=== PATIENT | female | born 1955 | race Caucasian/White ===

== ENCOUNTER 2017-02-12 11:02 | Inpatient (IN) | payer SELFPAY ==
[~2017-02-12] VITALS: Ht 157.5 cm; Wt 69.9 kg
[~2017-02-12 11:02] MED LIST: FURO40TA4 PO; IPRA3AMP NEB; POTA20TA4 PO
--- NOTE | 2017-02-12 11:32 | PHYS DOC ---
Past Medical History Past Medical History: Anxiety, CHF, COPD Past Surgical History: Hip Replacement, Tubal ligation Alcohol Use: Sober Drug Use: None Adult General Chief Complaint Chief Complaint: OTHER COMPLAINTS HPI HPI Patient is a 61 year old female who presents with shortness of breath over the last 3 days. She was seen today in her primary care office without oxygen on admit was 63%. 2 L increased to 82% and is back above 88% now with 5 L. She states she is on Lasix and been compliant with her medications. She denies any fevers chills nausea or vomiting. She does have sinus congestion since she's had an productive cough over the last several days of clear discharge. She also complains of dyspnea on exertion. She states she oxygen tanks at home but does not know how to use it. Her records indicated that she was hospitalized last year and then did not follow up with cardiology or pulmonary as directed. Review of Systems Review of Systems Constitutional: Denies fever or chills [] Eyes: Denies change in visual acuity, redness, or eye pain [] HENT: Denies nasal congestion or sore throat [] Respiratory: Positive for shortness of breath and dyspnea on exertion, Cardiovascular: No additional information not addressed in HPI [] GI: Denies abdominal pain, nausea, vomiting, bloody stools or diarrhea [] : Denies dysuria or hematuria [] Musculoskeletal: Denies back pain or joint pain [] Integument: Denies rash or skin lesions [] Neurologic: Denies headache, focal weakness or sensory changes [] Endocrine: Denies polyuria or polydipsia [] Current Medications Current Medications Current Medications Medications (Trade) Dose Ordered Sig/Dia Start Time Stop Time Status Last Admin Dose Admin Albuterol Sulfate (Ventolin Neb Soln) 2.5 mg PRN Q2HR PRN 02/12/17 14:15 Albuterol/ Ipratropium (Duoneb) 3 ml RTQID 02/12/17 16:00 Azithromycin (Zithromax 500mg Ivpb For Omni) 250 ml @ 250 mls/hr 1X ONCE 02/12/17 13:45 02/12/17 14:44 Enoxaparin Sodium (Lovenox 40mg Syringe) 40 mg Q24H 02/12/17 15:00 Famotidine (Pepcid) 20 mg DAILY 02/12/17 15:00 Furosemide (Lasix) 40 mg DAILY 02/12/17 15:00 Guaifenesin 600 mg 600 mg BID 02/12/17 21:00 Hydralazine HCl (Apresoline) 10 mg PRN Q4HRS PRN 02/12/17 14:30 Levofloxacin/ Dextrose (LEVAQUIN 500mg PREMIX) 100 ml @ 100 mls/hr 1X ONCE 02/12/17 14:30 02/12/17 15:29 Methylprednisolone Sodium Succinate (Solu-Medrol 40mg Vial) 40 mg BID 02/12/17 21:00 Methylprednisolone Sodium Succinate 125 mg 125 mg 1X ONCE 02/12/17 13:45 02/12/17 13:46 DC Potassium Chloride (Klor-Con) 20 meq DAILY 02/12/17 15:00 Allergies Allergies Allergies Coded Allergies Type Severity Reaction Last Updated Verified No Known Drug Allergies 05/17/16 No Physical Exam Physical Exam Constitutional: Well developed, well nourished, no acute distress, non-toxic appearance. [] HENT: Normocephalic, atraumatic, bilateral external ears normal, oropharynx moist, no oral exudates, nose normal. [] Eyes: PERRLA, EOMI, conjunctiva normal, no discharge. [] Neck: Normal range of motion, no tenderness, supple, no stridor. [] Cardiovascular:Heart rate regular rhythm, no murmur [] Lungs & Thorax: Decreased breath sounds bilaterally, no wheezing appreciated. Abdomen: Bowel sounds normal, soft, no tenderness, no masses, no pulsatile masses. [] Skin: Warm, dry, no erythema, no rash. [] Back: No tenderness, no CVA tenderness. [] Extremities: No tenderness, no cyanosis, no clubbing, ROM intact, no edema. [] Neurologic: Alert and oriented X 3, normal motor function, normal sensory function, no focal deficits noted. [] Psychologic: Affect normal, judgement normal, mood normal. [] Current Patient Data Vital Signs Vital Signs Date Time Temp Pulse Resp B/P Pulse Ox O2 Delivery O2 Flow Rate FiO2 02/12/17 14:22 93 BiPAP/CPAP 02/12/17 13:43 5.0 02/12/17 11:20 97.7 117 24 176/105 97.7 Lab Values Laboratory Tests Test 02/12/17 12:25 02/12/17 12:40 02/12/17 13:45 White Blood Count 6.9x10^3/uL (4.0-11.0) Red Blood Count 4.10x10^6/uL (3.50-5.40) Hemoglobin 13.4g/dL (12.0-15.5) Hematocrit 39.9% (36.0-47.0) Mean Corpuscular Volume 97fL (79-100) Mean Corpuscular Hemoglobin 33pg (25-35) Mean Corpuscular Hemoglobin Concent 34g/dL (31-37) Red Cell Distribution Width 13.1% (11.5-14.5) Platelet Count 168x10^3/uL (140-400) Neutrophils (%) (Auto) 78% (31-73) H Lymphocytes (%) (Auto) 10% (24-48) L Monocytes (%) (Auto) 12% (0-9) H Eosinophils (%) (Auto) 0% (0-3) Basophils (%) (Auto) 0% (0-3) Neutrophils # (Auto) 5.4x10^3uL (1.8-7.7) Lymphocytes # (Auto) 0.7x10^3/uL (1.0-4.8) L Monocytes # (Auto) 0.8x10^3/uL (0.0-1.1) Eosinophils # (Auto) 0.0x10^3/uL (0.0-0.7) Basophils # (Auto) 0.0x10^3/uL (0.0-0.2) Prothrombin Time 13.2SEC (11.7-14.0) Prothrombin Time INR 1.1 (0.8-1.1) Sodium Level 140mmol/L (136-145) Potassium Level 4.0mmol/L (3.5-5.1) Chloride Level 99mmol/L (98-107) Carbon Dioxide Level 40mmol/L (21-32) H Anion Gap 1 (6-14) L Blood Urea Nitrogen 19mg/dL (7-20) Creatinine 0.9mg/dL (0.6-1.0) Estimated GFR (Cockcroft-Gault) 63.2 Glucose Level 113mg/dL (70-99) H Calcium Level 9.8mg/dL (8.5-10.1) Magnesium Level 2.2mg/dL (1.8-2.4) Total Bilirubin 0.7mg/dL (0.2-1.0) Direct Bilirubin 0.2mg/dL (0.0-0.2) Aspartate Amino Transferase (AST) 14U/L (15-37) L Alanine Aminotransferase (ALT) 15U/L (14-59) Alkaline Phosphatase 55U/L (46-116) Creatine Kinase 33U/L (26-192) Creatine Kinase MB (Mass) 1.1ng/mL (0.0-3.6) Creatine Kinase MB Relative Index % (0-4) Troponin I Quantitative < 0.017ng/mL (0.000-0.055) XI-[place]ox-A-Type Natriuretic Peptide 211pg/mL (0-124) H Total Protein 7.8g/dL (6.4-8.2) Albumin 3.5g/dL (3.4-5.0) Lipase 100U/L (73-393) Thyroid Stimulating Hormone (TSH) 0.458uIU/mL (0.358-3.74) Urine Collection Type Void Urine Color [place] Urine Clarity Cloudy Urine pH 5.5 Urine Specific Blue 1.025 Urine Protein 100mg/dL (NEG-TRACE) Urine Glucose (UA) Negativemg/dL (NEG) Urine Ketones (Stick) Tracemg/dL (NEG) Urine Blood Small (NEG) Urine Nitrite Negative (NEG) Urine Bilirubin Moderate (NEG) Urine Urobilinogen Dipstick 1.0mg/dL (0.2 mg/dL) Urine Leukocyte Esterase Large (NEG) Urine RBC Occ/HPF (0-2) Urine WBC 5-10/HPF (0-4) Urine Squamous Epithelial Cells Few/LPF Urine Bacteria Moderate/HPF (0-FEW) Urine Hyaline Casts Moderate/HPF Urine Mucus Slight/LPF O2 Saturation 94% (92-99) Arterial Blood pH 7.18 (7.35-7.45) *L Arterial Blood pCO2 at Patient Temp 126mmHg (35-46) *H Arterial Blood pO2 at Patient Temp 82mmHg (65-108) Arterial Blood HCO3 46mmol/L (21-28) H Arterial Blood Base Excess 12mmol/L (-3-3) H FiO2 40.0 Laboratory Tests 02/12/17 12:25 Laboratory Tests 02/12/17 12:25 EKG EKG Shows sinus rhythm with a rate of [address] elevations, T-wave inversion noted in leads, afebrile, right axis deviation noted, QTC 435 ms, as interpreted by me. Radiology/Procedures Radiology/Procedures [facility] [address] [place] [address] IMAGING REPORT Signed PATIENT: SHAUN BROWN ACCOUNT: [id number] : 1955 LOCATION: ER AGE: 61 SEX: F EXAM STATUS: REG ER ORD. PHYSICIAN: MERYL HUYNH MD REASON: soa PROCEDURE: PORTABLE CHEST 1V Portable chest, 02/12/2017: History: Cough, fever, shortness of breath Comparison is made to a study from 05/17/2016. The heart is mildly enlarged. There is calcific plaquing of the aorta. The pulmonary vascularity is at the upper limits of normal. No pulmonary consolidation is seen. There is no evidence of pleural fluid. IMPRESSION: Cardiomegaly with borderline vascular congestion. DICTATED and SIGNED BY: REGINA HUGGINS MD DATE: 02/12/17 1201 CC: MERYL HUYNH MD; UNKNOWN PCP NAME ~ Impressions: Shortness of breath Congestive heart failure Acute exacerbation of COPD Acute on chronic respiratory failure Course & Med Decision Making Course & Med Decision Making Pertinent Labs and Imaging studies reviewed. (See chart for details) EKG, labs, chest x-ray are consistent with a COPD exacerbation. Patient is being admitted to Dr. Cheng stable condition this time. We started Solu-Medrol, DuoNeb and azithromycin. She does have a UTI and labs Have a UTI based on labs, but not complaining of dysuria. ABG was completed after talking with primary care physician that shows respiratory acidosis. The patient is being started on BiPAP at this time. PH is 7.12, PCO2 125, PO2 81, bicarbonate 46 I did page back primary to inform him of this. Dragon Disclaimer Dragon Disclaimer This electronic medical record was generated, in whole or in part, using a voice recognition dictation system. Departure Departure Impression: Primary Impression: COPD (chronic obstructive pulmonary disease) Disposition: 09 ADMITTED INPATIENT Admitting Physician: Lino Cheng Condition: STABLE Referrals: TANIA HORNE (PCP) MERYL HUYNH MD Feb 12, 2017 11:32
--- NOTE | 2017-02-12 12:05 | RAD ---
Portable chest, 02/12/2017: History: Cough, fever, shortness of breath Comparison is made to a study from 05/17/2016. The heart is mildly enlarged. There is calcific plaquing of the aorta. The pulmonary vascularity is at the upper limits of normal. No pulmonary consolidation is seen. There is no evidence of pleural fluid. IMPRESSION: Cardiomegaly with borderline vascular congestion.
[2017-02-12 12:43] LABS: BASO % 0 % (0-3); EOS % 0 % (0-3); HEMATOCRIT 39.9 % (36.0-47.0); HEMOGLOBIN 13.4 g/dL (12.0-15.5); LYMPH # 0.7 x10^3/uL (1.0-4.8); LYMPH % 10 % (24-48); MEAN CORPUSCULAR HEMOGLOBIN 33 pg (25-35); MEAN CORPUSCULAR HGB CONC 34 g/dL (31-37); MEAN CORPUSCULAR VOLUME 97 fL (79-100); MONO % 12 % (0-9); NEUT % 78 % (31-73); PLATELET COUNT 168 x10^3/uL (140-400); RED CELL DISTRIBUTION WIDTH 13.1 % (11.5-14.5); WHITE BLOOD COUNT 6.9 x10^3/uL (4.0-11.0)
[2017-02-12 12:53] LABS: INR 1.1 (0.8-1.1); PROTHROMBIN TIME PATIENT 13.2 SEC (11.7-14.0)
[2017-02-12 12:54] LABS: BILIRUBIN,URINE MODERATE (NEG); GLUCOSE,URINE NEGATIVE (NEG); NITRITE,URINE NEGATIVE (NEG); PH,URINE 5.5; PROTEIN,URINE 100 mg/dL (NEG-TRACE)
[2017-02-12 13:05] LABS: CALCIUM 9.8 mg/dL (8.5-10.1); CREATININE 0.9 mg/dL (0.6-1.0); GFR 63.2
[2017-02-12 13:10] LABS: ALBUMIN 3.5 g/dL (3.4-5.0); DIRECT BILIRUBIN 0.2 mg/dL (0.0-0.2); MAGNESIUM 2.2 mg/dL (1.8-2.4); TOTAL BILIRUBIN 0.7 mg/dL (0.2-1.0); TOTAL PROTEIN 7.8 g/dL (6.4-8.2)
[2017-02-12 13:13] LABS: BACTERIA,URINE MODERATE /HPF (0-FEW); RBC,URINE OCC /HPF (0-2); SQUAMOUS EPITHELIAL CELL,UR FEW /LPF
[2017-02-12] MEDS ORDERED: IPRATRPIUM/ALBUTEROL 0.5/2.5MG 3 ML NEBU. NEB ONE (13:15)
[2017-02-12 13:25] LABS: CKMB MASS 1.1 ng/mL (0.0-3.6); CREATINE KINASE 33 U/L (26-192)
[2017-02-12] MEDS ORDERED: methylPREDNISolone SOD SUCC PF 125 MG/2 ML VIAL. IV ONE (13:45)
[2017-02-12] MEDS ORDERED: AZITHRMYCN 500MG IVPB FOR OMNI 250 ML IV ONE (13:45)
[2017-02-12 14:00] LABS: HCO3 ABG 46 mmol/L (21-28); PO2 ABG 82 mmHg (65-108); SAT O2 ABG 94 % (92-99)
[2017-02-12 14:03] LABS: PH ABG 7.18 (7.35-7.45)
--- NOTE | 2017-02-12 14:03 | PDOC1 ---
History and Physical Date of Admission Date of Admission 02/12/17 Identification/Chief Complaint Chief Complaint sob Problems: Source Source: Chart review, Patient History of Present Illness History of Present Illness HPI HPI Patient is a 61 year old female who presents with shortness of breath over the last 3 days. pt is 1PPD, was here last year for resp failure with COPD. She is likely uncompliant with PCP altho she said she is compliant with her lasix to ERP, on home o2 2l 16/06, use nebs 3-4 times a day. poor historian. Her denies fever, chills to ERP, but admited to me, however, when i asked her for details ,she could not answer. + cough, with yellowish sputum. She seems give different history to different doc, she told ERP she has problem using o2 at home, but denies to me. no N/V, diarrhea, constipation. admites mild dysuria and frequency. sat drops to 60s% in ER. Past Medical History Cardiovascular: CHF Pulmonary: COPD, Other CENTRAL NERVOUS SYSTEM: Other GI: No pertinent hx Heme/Onc: No pertinent hx Hepatobiliary: No pertinent hx Rheumatologic: No pertinent hx Infectious disease: No pertinent hx Renal/: No pertinent hx Endocrine: No pertinent hx Past Surgical History Past Surgical History: Total hip replacement Family History Family History: Diabetes, Family History Unknown Social History Smoke: 1 pack per day ALCOHOL: occassional Drugs: None Current Problem List Problem List Problems Medical Problems: (1) COPD (chronic obstructive pulmonary disease) Status: Acute Current Medications Current Medications Current Medications Medications (Trade) Dose Ordered Sig/Dia Start Time Stop Time Status Last Admin Dose Admin Albuterol/ Ipratropium (Duoneb) 3 ml 1X ONCE 02/12/17 13:15 02/12/17 13:16 DC 02/12/17 13:43 3 ML Azithromycin (Zithromax 500mg Ivpb For Omni) 250 ml @ 250 mls/hr 1X ONCE 02/12/17 13:45 02/12/17 14:44 Methylprednisolone Sodium Succinate 125 mg 125 mg 1X ONCE 02/12/17 13:45 02/12/17 13:46 DC Allergies Allergies Allergies Coded Allergies Type Severity Reaction Last Updated Verified No Known Drug Allergies 05/17/16 No ROS Review of System CONSTITUTIONAL: No fever or chills EYES: No recent changes SKIN: No rash or itching CARDIOVASCULAR: No chest pain, syncope, palpitations, or edema RESPIRATORY: No SOB or cough GASTROINTESTINAL: No nausea, vomiting or abdominal pain NEUROLOGICAL: No headaches or weakness ENDOCRINE: No cold or heat intolerance GENITOURINARY: No urgency or frequency of urination MUSCULOSKELETAL: No back pain or joint pain LYMPHATICS: No enlarged lymph nodes PSYCHIATRIC: No anxiety or depression Physical Exam Physical Exam GEN.: No apparent distress. Alert and oriented. HEENT: Head is normocephalic, atraumatic NECK: Supple. LUNGS: bl coarse bs with mild crackles HEART: RRR, S1, S2 present. Peripheral pulses intact ABDOMEN: Soft, nontender. Positive bowel sounds. EXTREMITIES: Without any cyanosis. NEUROLOGIC: Normal speech, normal tone PSYCHIATRIC: Normal affect, normal mood. SKIN: No ulcerations Vitals Vitals Vital Signs Date Time Temp Pulse Resp B/P Pulse Ox O2 Delivery O2 Flow Rate FiO2 02/12/17 13:43 96 Nasal Cannula 5.0 02/12/17 11:20 97.7 117 24 176/105 97.7 Labs Labs Laboratory Tests Test 02/12/17 12:25 02/12/17 12:40 White Blood Count 6.9x10^3/uL (4.0-11.0) Red Blood Count 4.10x10^6/uL (3.50-5.40) Hemoglobin 13.4g/dL (12.0-15.5) Hematocrit 39.9% (36.0-47.0) Mean Corpuscular Volume 97fL (79-100) Mean Corpuscular Hemoglobin 33pg (25-35) Mean Corpuscular Hemoglobin Concent 34g/dL (31-37) Red Cell Distribution Width 13.1% (11.5-14.5) Platelet Count 168x10^3/uL (140-400) Neutrophils (%) (Auto) 78% (31-73) Lymphocytes (%) (Auto) 10% (24-48) Monocytes (%) (Auto) 12% (0-9) Eosinophils (%) (Auto) 0% (0-3) Basophils (%) (Auto) 0% (0-3) Neutrophils # (Auto) 5.4x10^3uL (1.8-7.7) Lymphocytes # (Auto) 0.7x10^3/uL (1.0-4.8) Monocytes # (Auto) 0.8x10^3/uL (0.0-1.1) Eosinophils # (Auto) 0.0x10^3/uL (0.0-0.7) Basophils # (Auto) 0.0x10^3/uL (0.0-0.2) Prothrombin Time 13.2SEC (11.7-14.0) Prothromb Time International Ratio 1.1 (0.8-1.1) Sodium Level 140mmol/L (136-145) Potassium Level 4.0mmol/L (3.5-5.1) Chloride Level 99mmol/L (98-107) Carbon Dioxide Level 40mmol/L (21-32) Anion Gap 1 (6-14) Blood Urea Nitrogen 19mg/dL (7-20) Creatinine 0.9mg/dL (0.6-1.0) Estimated GFR (Cockcroft-Gault) 63.2 Glucose Level 113mg/dL (70-99) Calcium Level 9.8mg/dL (8.5-10.1) Magnesium Level 2.2mg/dL (1.8-2.4) Total Bilirubin 0.7mg/dL (0.2-1.0) Direct Bilirubin 0.2mg/dL (0.0-0.2) Aspartate Amino Transf (AST/SGOT) 14U/L (15-37) Alanine Aminotransferase (ALT/SGPT) 15U/L (14-59) Alkaline Phosphatase 55U/L (46-116) Creatine Kinase 33U/L (26-192) Creatine Kinase MB (Mass) 1.1ng/mL (0.0-3.6) Creatine Kinase MB Relative Index % (0-4) Troponin I Quantitative < 0.017ng/mL (0.000-0.055) SC-Oqe-A-Type Natriuretic Peptide 211pg/mL (0-124) Total Protein 7.8g/dL (6.4-8.2) Albumin 3.5g/dL (3.4-5.0) Lipase 100U/L (73-393) Thyroid Stimulating Hormone (TSH) 0.458uIU/mL (0.358-3.74) Urine Collection Type Void Urine Color [place] Urine Clarity Cloudy Urine pH 5.5 Urine Specific [place] 1.025 Urine Protein 100mg/dL (NEG-TRACE) Urine Glucose (UA) Negativemg/dL (NEG) Urine Ketones (Stick) Tracemg/dL (NEG) Urine Blood Small (NEG) Urine Nitrite Negative (NEG) Urine Bilirubin Moderate (NEG) Urine Urobilinogen Dipstick 1.0mg/dL (0.2 mg/dL) Urine Leukocyte Esterase Large (NEG) Urine RBC Occ/HPF (0-2) Urine WBC 5-10/HPF (0-4) Urine Squamous Epithelial Cells Few/LPF Urine Bacteria Moderate/HPF (0-FEW) Urine Hyaline Casts Moderate/HPF Urine Mucus Slight/LPF Laboratory Tests Test 02/12/17 12:25 02/12/17 12:40 White Blood Count 6.9x10^3/uL (4.0-11.0) Red Blood Count 4.10x10^6/uL (3.50-5.40) Hemoglobin 13.4g/dL (12.0-15.5) Hematocrit 39.9% (36.0-47.0) Mean Corpuscular Volume 97fL (79-100) Mean Corpuscular Hemoglobin 33pg (25-35) Mean Corpuscular Hemoglobin Concent 34g/dL (31-37) Red Cell Distribution Width 13.1% (11.5-14.5) Platelet Count 168x10^3/uL (140-400) Neutrophils (%) (Auto) 78% (31-73) Lymphocytes (%) (Auto) 10% (24-48) Monocytes (%) (Auto) 12% (0-9) Eosinophils (%) (Auto) 0% (0-3) Basophils (%) (Auto) 0% (0-3) Neutrophils # (Auto) 5.4x10^3uL (1.8-7.7) Lymphocytes # (Auto) 0.7x10^3/uL (1.0-4.8) Monocytes # (Auto) 0.8x10^3/uL (0.0-1.1) Eosinophils # (Auto) 0.0x10^3/uL (0.0-0.7) Basophils # (Auto) 0.0x10^3/uL (0.0-0.2) Prothrombin Time 13.2SEC (11.7-14.0) Prothromb Time International Ratio 1.1 (0.8-1.1) Sodium Level 140mmol/L (136-145) Potassium Level 4.0mmol/L (3.5-5.1) Chloride Level 99mmol/L (98-107) Carbon Dioxide Level 40mmol/L (21-32) Anion Gap 1 (6-14) Blood Urea Nitrogen 19mg/dL (7-20) Creatinine 0.9mg/dL (0.6-1.0) Estimated GFR (Cockcroft-Gault) 63.2 Glucose Level 113mg/dL (70-99) Calcium Level 9.8mg/dL (8.5-10.1) Magnesium Level 2.2mg/dL (1.8-2.4) Total Bilirubin 0.7mg/dL (0.2-1.0) Direct Bilirubin 0.2mg/dL (0.0-0.2) Aspartate Amino Transf (AST/SGOT) 14U/L (15-37) Alanine Aminotransferase (ALT/SGPT) 15U/L (14-59) Alkaline Phosphatase 55U/L (46-116) Creatine Kinase 33U/L (26-192) Creatine Kinase MB (Mass) 1.1ng/mL (0.0-3.6) Creatine Kinase MB Relative Index % (0-4) Troponin I Quantitative < 0.017ng/mL (0.000-0.055) KL-Nbq-Y-Type Natriuretic Peptide 211pg/mL (0-124) Total Protein 7.8g/dL (6.4-8.2) Albumin 3.5g/dL (3.4-5.0) Lipase 100U/L (73-393) Thyroid Stimulating Hormone (TSH) 0.458uIU/mL (0.358-3.74) Urine Collection Type Void Urine Color [place] Urine Clarity Cloudy Urine pH 5.5 Urine Specific [place] 1.025 Urine Protein 100mg/dL (NEG-TRACE) Urine Glucose (UA) Negativemg/dL (NEG) Urine Ketones (Stick) Tracemg/dL (NEG) Urine Blood Small (NEG) Urine Nitrite Negative (NEG) Urine Bilirubin Moderate (NEG) Urine Urobilinogen Dipstick 1.0mg/dL (0.2 mg/dL) Urine Leukocyte Esterase Large (NEG) Urine RBC Occ/HPF (0-2) Urine WBC 5-10/HPF (0-4) Urine Squamous Epithelial Cells Few/LPF Urine Bacteria Moderate/HPF (0-FEW) Urine Hyaline Casts Moderate/HPF Urine Mucus Slight/LPF VTE Prophylaxis Ordered VTE Prophylaxis Devices: Yes VTE Pharmacological Prophylaxi: Yes Assessment/Plan Assessment/Plan 1. acute on chronic resp failure with hypoxia and hypercapnia 2. COPD , emphysema 3. bronchitis 4. mild chronic diastolic CHF 5. htn uncontrolled 6. tobaccoism 7.obesity 8. anxiety 9. uti plan: 1 .card, pulm consult 2. need bipap 3. solumedrol bid, duoneb qid 4. levaquin, check sputum cx 5. cont lasix 6. may need HTN meds dvt, gi ppx PTOT ORALIA HERNANDEZ MD Feb 12, 2017 14:03
[2017-02-12 14:04] LABS: PCO2 ABG 126 mmHg (35-46)
--- NOTE | 2017-02-12 14:19 | EKG ---
[address] [place] [address] Test Date: 2017-02-12 Test Time: 12:11:42 Pat Name: SHAUN BROWN Department: Room: Gender: F [employer]: : 1955 Requested By: MERYL HUYNH Order Number: [id number] Reading MD: Measurements Intervals [place] Rate: 95 P: 90 [place]: 150 QRS: 93 QRSD: 86 T: 145 QT: 344 QTc: 435 Interpretive Statements SINUS RHYTHM RIGHTWARD AXIS QRS(T) CONTOUR ABNORMALITY CONSIDER HIGH LATERAL INFARCT POSSIBLY ABNORMAL ECG RI6.01 No previous ECG available for comparison
[2017-02-12] MEDS ORDERED: hydrALAZINE 20 MG/ML VIAL. IVP PRN (14:30)
--- NOTE | 2017-02-12 14:41 | ACF ---
Admission Forms Criteria COPD Clinical Indications for Admission to Inpatient Care (Place 'X' for any and all applicable criteria): Admission is indicated for ANY ONE of the following (1)(2)(3): [X]I. Acute exacerbation by high-risk comorbidity (e.g., pneumonia, dysrhythmia, heart failure, pleural effusion, pneumothorax) or severe underlying COPD (e.g., steroid dependent) [ ]II. Inpatient admission required rather than observation care (see Chronic Obstructive Pulmonary Disease: Observation Care) because of ANY ONE of the following: [ ]a) New or pre-existing signs or symptoms of COPD (eg, dyspnea or Tachypnea at rest or with minimal activity) that persist despite outpatient and observation care treatment [ ]b) New-onset hypoxemia (room air SaO2 less than 90%, PO2 less than 60 mm Hg (8.0 kPa)) that persists despite outpatient and observation care treatment [ ]c) Worsening of pre-existing hypoxemia (eg, new or increased requirement for supplemental oxygen to maintain oxygenation at baseline level) that persists despite outpatient and observation care treatment, with oxygen treatment needs performable only in acute inpatient setting [ ]d) Hypercarbia (PCO2 greater than 40 mm Hg (5.3 kPa))-induced respiratory acidosis (pH less than 7.35) that persists despite outpatient and observation care treatment [ ]e) Supplemental oxygen or respiratory treatments for over 24 hours that are performable only in acute inpatient setting [ ]f) Chest tube placement with active evacuation (e.g., suction, drainage) (5) [ ]g) Other condition, treatment or monitoring requiring inpatient admission [ ]III. Planned invasive surgical or diagnostic procedures requiring acute- care hospitalization [ ]IV. Acute respiratory failure (e.g., uncompensated hypercarbia, severe hypoxemia) [ ]V. Severe comorbid condition (e.g., severe steroid myopathy, acute vertebral fracture) that has acutely worsened pulmonary function [ ]. Confusion state, lethargy, obtundation, stupor or coma Extended stay beyond goal length of stay may be needed for (31)(32): [ ]a ) Respiratory Failure. [ ]b) Severe or persisting hypoxemia or hypercarbia [ ]c) Severe or persistent dyspnea [ ]d) Comorbidities (e.g. chronic heart failure, atrial fibrillation with rapid response, pneumonia) [ ]e) Malnutrition The original [facility] content created by [facility] has been revised. The portions of the content which have been revised are identified through the use of italic text or in bold, and [facility] has neither reviewed nor approved the modified material. All other unmodified content is copyright [facility]. Please see references footnoted in the original [facility] edition 2016 Admission Criteria Met?: Yes PRICILLA CAIN Feb 12, 2017 14:41
[2017-02-12] MEDS: POTASSIUM CHLORIDE 20 MEQ TABLET.ER. PO SCH (15:00)
[2017-02-12] MEDS: FUROSEMIDE 40 MG TABLET PO SCH (15:02)
[2017-02-12] MEDS: FAMOTIDINE 20 MG TABLET. PO SCH (15:02)
[2017-02-12] MEDS: ENOXAPARIN 40 MG/0.4 ML DISP.SYRIN. SQ SCH (15:13)
[2017-02-12] MEDS: IPRATRPIUM/ALBUTEROL 0.5/2.5MG 3 ML NEBU. NEB SCH ×2 (15:51→19:35)
[2017-02-12 16:27] LABS: HCO3 ABG 35 mmol/L (21-28); PH ABG 7.23 (7.35-7.45); PO2 ABG 70 mmHg (65-108); SAT O2 ABG 91 % (92-99)
[2017-02-12] MEDS ORDERED: DOXY500P4 MC (16:43)
[2017-02-12 16:49] LABS: PCO2 ABG 86 mmHg (35-46)
[2017-02-12 17:13] VITALS: BP 106/75
[2017-02-12 19:30] VITALS: BP 142/52
[2017-02-12 19:57] LABS: HCO3 ABG 44 mmol/L (21-28); PO2 ABG 191 mmHg (65-108); SAT O2 ABG 99 % (92-99)
[2017-02-12 20:06] LABS: FIO2 ABG 80; PCO2 ABG 116 mmHg (35-46)
[2017-02-12] MEDS: GUAIFENESIN ER 600 MG TABLET.ER PO SCH (21:56)
[2017-02-12] MEDS: methylPREDNISolone SOD SUCC PF 40 MG/ML VIAL. IV SCH (21:56)
[2017-02-12 23:05] VITALS: BP 102/39
[2017-02-12 23:17] LABS: PH ABG 7.22 (7.35-7.45)
[2017-02-12 23:22] LABS: FIO2 ABG 45; HCO3 ABG 41 mmol/L (21-28); PCO2 ABG 101 mmHg (35-46); PO2 ABG 68 mmHg (65-108); SAT O2 ABG 92 % (92-99)
[2017-02-12 23:23] LABS: BODY TEMP ABG 97.9 DEG
[2017-02-12 23:24] LABS: CORRECTED PCO2 ABG 100 mmHg; CORRECTED PH ABG 7.23; CORRECTED PO2 ABG 66 mmHg; O2 CONTENT TEMP 43.8
[2017-02-12 23:25] LABS: ALLEN TEST NORMAL
[2017-02-13] MEDS ORDERED: ALPRAZOLAM 0.25 MG TABLET PO ONE (01:30)
[2017-02-13] MEDS: ALBUTEROL SULFATE 2.5 MG/3 ML NEBU. NEB PRN (01:50)
[2017-02-13 02:46] LABS: CALCIUM 9.9 mg/dL (8.5-10.1); CREATININE 0.9 mg/dL (0.6-1.0); GFR 63.2; POTASSIUM 4.3 mmol/L (3.5-5.1)
[2017-02-13 03:30] VITALS: BP 112/42
[2017-02-13 03:34] LABS: BASO % 0 % (0-3); EOS % 0 % (0-3); HEMATOCRIT 37.8 % (36.0-47.0); HEMOGLOBIN 12.4 g/dL (12.0-15.5); LYMPH # 0.6 x10^3/uL (1.0-4.8); LYMPH % 11 % (24-48); MEAN CORPUSCULAR HEMOGLOBIN 32 pg (25-35); MEAN CORPUSCULAR HGB CONC 33 g/dL (31-37); MEAN CORPUSCULAR VOLUME 99 fL (79-100); MONO % 4 % (0-9); NEUT % 84 % (31-73); PLATELET COUNT 165 x10^3/uL (140-400); RED BLOOD COUNT 3.83 x10^6/uL (3.50-5.40); RED CELL DISTRIBUTION WIDTH 13.1 % (11.5-14.5); WHITE BLOOD COUNT 5.2 x10^3/uL (4.0-11.0)
[2017-02-13 07:00] VITALS: BP 129/69
[2017-02-13 07:30] LABS: HCO3 ABG 35 mmol/L (21-28); PH ABG 7.27 (7.35-7.45); PO2 ABG 55 mmHg (65-108); SAT O2 ABG 88 % (92-99)
[2017-02-13 07:37] LABS: PCO2 ABG 78 mmHg (35-46)
[2017-02-13 07:38] LABS: FIO2 ABG 45
[2017-02-13] MEDS: POTASSIUM CHLORIDE 20 MEQ TABLET.ER. PO SCH (08:15)
[2017-02-13] MEDS: FAMOTIDINE 20 MG TABLET. PO SCH (08:15)
[2017-02-13] MEDS: FUROSEMIDE 40 MG TABLET PO SCH (08:15)
[2017-02-13] MEDS: GUAIFENESIN ER 600 MG TABLET.ER PO SCH ×2 (08:15→20:47)
[2017-02-13] MEDS: methylPREDNISolone SOD SUCC PF 40 MG/ML VIAL. IV SCH ×2 (08:16→20:48)
--- NOTE | 2017-02-13 09:55 | PDOC2 ---
KATT MOILNA FLOTATION OPERATOR 02/13/17 0955: CARDIAC CONSULT DATE OF CONSULT Date of Consult DATE: 02/13/17 TIME: 09:53 REASON FOR CONSULT Reason for Consult: CHF REFERRING PHYSICIAN Referring Physician: Prosper SOURCE Source: Chart review, Patient HISTORY OF PRESENT ILLNESS HISTORY OF PRESENT ILLNESS This is a pleasant 61 yo female admitted for complains of SOA. Currently has bipap on due to acute respiratory failure. Our conversation is limited to closed ended questions due to bipap but presently pt feels better, in no discomfort and her SOA is better. Reports that her SOA hstarted becoming noticeable about 3 days ago. She has been using her breathing treatment more often and was actually seen in the PCP clinic and noted with hypoxia with O2 sats in the 60 to 80s despite oxygen supplement and adjustment. Reports no chest pain but positive for orthopnea, EVANGELISTA, nasal congestion with productive cough. No noted chills or fever. Denies any palpitations. Unfortunately to date , she continues to smoke tobacco otherwise verbalized compliance with her routine medications. PAST MEDICAL HISTORY Past Medical History Cardiovascular: CHF Pulmonary: COPD, Other (respiratory failure) CENTRAL NERVOUS SYSTEM: Other (No pertinent history) GI: No pertinent hx Heme/Onc: No pertinent hx Hepatobiliary: No pertinent hx Musculoskeletal: Osteoarthritis Rheumatologic: No pertinent hx Infectious disease: No pertinent hx ENT: No pertinent hx Renal/: No pertinent hx Endocrine: No pertinent hx Dermatology: No pertinent hx PAST SURGICAL HISTORY Past Surgical History Total hip replacement (bilateral) SOCIAL HISTORY Smoke: 1 pack per day (>30 yrs) ALCOHOL: none Drugs: None Lives: with Family CURRENT MEDICATIONS CURRENT MEDICATIONS Current Medications Medications (Trade) Dose Ordered Sig/Dia Route PRN Reason Start Time Stop Time Status Last Admin Dose Admin Albuterol/ Ipratropium (Duoneb) 3 ml 1X ONCE NEB 02/12/17 13:15 02/12/17 13:16 DC 02/12/17 13:43 Methylprednisolone Sodium Succinate 125 mg 125 mg 1X ONCE IV 02/12/17 13:45 02/12/17 13:46 DC 02/12/17 15:01 Azithromycin (Zithromax 500mg Ivpb For Omni) 250 ml @ 250 mls/hr 1X ONCE IV 02/12/17 13:45 02/12/17 14:44 DC 02/12/17 15:02 Furosemide (Lasix) 40 mg DAILY PO 3/22/17 15:00 02/13/17 08:15 Potassium Chloride (Klor-Con) 20 meq DAILY PO 02/12/17 15:00 02/13/17 08:15 Albuterol/ Ipratropium (Duoneb) 3 ml RTQID NEB 02/12/17 16:00 02/12/17 19:35 Albuterol Sulfate (Ventolin Neb Soln) 2.5 mg PRN Q2HR PRN NEB SHORTNESS OF BREATH 02/12/17 14:15 02/13/17 01:50 Methylprednisolone Sodium Succinate (Solu-Medrol 40mg Vial) 40 mg BID IV 02/12/17 21:00 02/13/17 08:16 Famotidine (Pepcid) 20 mg DAILY PO 02/12/17 15:00 02/13/17 08:15 Enoxaparin Sodium (Lovenox 40mg Syringe) 40 mg Q24H SQ 02/12/17 15:00 02/12/17 15:13 Guaifenesin (Mucinex) 600 mg BID PO 02/12/17 21:00 02/13/17 08:15 Alprazolam (Xanax) 0.25 mg 1X ONCE PO 02/13/17 01:30 02/13/17 01:31 DC 02/13/17 01:28 ALLERGIES ALLERGIES: Coded Allergies: No Known Drug Allergies (Unverified , 05/17/16) ROS Review of System 14 point ROS evaluated with pertinent positives noted per HPI PHYSICAL EXAM General: Alert, Oriented X3, Cooperative, mild distress HEENT: Atraumatic, Mucous membr. moist/pink Lungs: Other (diminished throughout, Bip[place] on) Heart: Regular rate (SR), Other (unable to appreciate fully her heart sounds due to bipap) Abdomen: Soft, No tenderness Extremities: No cyanosis, No edema Skin: No breakdown, No significant lesion Neuro: Normal speech, Sensation intact Psych/Mental Status: Mental status NL (slightly drowsy), Mood NL MUSCULOSKELETAL: Osteoarthritic changes both hands VITALS VITALS Vital Signs Date Time Temp Pulse Resp B/P Pulse Ox O2 Delivery O2 Flow Rate FiO2 02/13/17 07:14 95 BiPAP/CPAP 02/13/17 07:00 98.2 92 22 129/69 98.2 02/12/17 23:03 5.0 LABS Lab: Laboratory Tests Test 02/12/17 10:50 02/12/17 12:25 02/12/17 12:40 02/12/17 13:45 O2 Saturation 92% (92-99) 94% (92-99) Arterial Blood pH 7.22 (7.35-7.45) 7.18 (7.35-7.45) Arterial Blood pH (Temp corrected) 7.23 Arterial Blood pCO2 at Patient Temp 101mmHg (35-46) 126mmHg (35-46) Arterial Blood pCO2 (Temp correct) 100mmHg Arterial Blood pO2 at Patient Temp 68mmHg (65-108) 82mmHg (65-108) Arterial Blood pO2 (Temp corrected) 66mmHg Arterial Blood HCO3 41mmol/L (21-28) 46mmol/L (21-28) Arterial Blood Base Excess 9mmol/L (-3-3) 12mmol/L (-3-3) FiO2 45 40.0 White Blood Count 6.9x10^3/uL (4.0-11.0) Red Blood Count 4.10x10^6/uL (3.50-5.40) Hemoglobin 13.4g/dL (12.0-15.5) Hematocrit 39.9% (36.0-47.0) Mean Corpuscular Volume 97fL (79-100) Mean Corpuscular Hemoglobin 33pg (25-35) Mean Corpuscular Hemoglobin Concent 34g/dL (31-37) Red Cell Distribution Width 13.1% (11.5-14.5) Platelet Count 168x10^3/uL (140-400) Neutrophils (%) (Auto) 78% (31-73) Lymphocytes (%) (Auto) 10% (24-48) Monocytes (%) (Auto) 12% (0-9) Eosinophils (%) (Auto) 0% (0-3) Basophils (%) (Auto) 0% (0-3) Neutrophils # (Auto) 5.4x10^3uL (1.8-7.7) Lymphocytes # (Auto) 0.7x10^3/uL (1.0-4.8) Monocytes # (Auto) 0.8x10^3/uL (0.0-1.1) Eosinophils # (Auto) 0.0x10^3/uL (0.0-0.7) Basophils # (Auto) 0.0x10^3/uL (0.0-0.2) Prothrombin Time 13.2SEC (11.7-14.0) Prothromb Time International Ratio 1.1 (0.8-1.1) Sodium Level 140mmol/L (136-145) Potassium Level 4.0mmol/L (3.5-5.1) Chloride Level 99mmol/L (98-107) Carbon Dioxide Level 40mmol/L (21-32) Anion Gap 1 (6-14) Blood Urea Nitrogen 19mg/dL (7-20) Creatinine 0.9mg/dL (0.6-1.0) Estimated GFR (Cockcroft-Gault) 63.2 Glucose Level 113mg/dL (70-99) Calcium Level 9.8mg/dL (8.5-10.1) Magnesium Level 2.2mg/dL (1.8-2.4) Total Bilirubin 0.7mg/dL (0.2-1.0) Direct Bilirubin 0.2mg/dL (0.0-0.2) Aspartate Amino Transf (AST/SGOT) 14U/L (15-37) Alanine Aminotransferase (ALT/SGPT) 15U/L (14-59) Alkaline Phosphatase 55U/L (46-116) Creatine Kinase 33U/L (26-192) Creatine Kinase MB (Mass) 1.1ng/mL (0.0-3.6) Creatine Kinase MB Relative Index % (0-4) Troponin I Quantitative < 0.017ng/mL (0.000-0.055) SN-Vjh-[id number]-Type Natriuretic Peptide 211pg/mL (0-124) Total Protein 7.8g/dL (6.4-8.2) Albumin 3.5g/dL (3.4-5.0) Lipase 100U/L (73-393) Thyroid Stimulating Hormone (TSH) 0.458uIU/mL (0.358-3.74) Urine Collection Type Void Urine Color [place] Urine Clarity Cloudy Urine pH 5.5 Urine Specific [place] 1.025 Urine Protein 100mg/dL (NEG-TRACE) Urine Glucose (UA) Negativemg/dL (NEG) Urine Ketones (Stick) Tracemg/dL (NEG) Urine Blood Small (NEG) Urine Nitrite Negative (NEG) Urine Bilirubin Moderate (NEG) Urine Urobilinogen Dipstick 1.0mg/dL (0.2 mg/dL) Urine Leukocyte Esterase Large (NEG) Urine RBC Occ/HPF (0-2) Urine WBC 5-10/HPF (0-4) Urine Squamous Epithelial Cells Few/LPF Urine Bacteria Moderate/HPF (0-FEW) Urine Hyaline Casts Moderate/HPF Urine Mucus Slight/LPF Test 02/12/17 16:15 02/12/17 19:30 02/12/17 19:49 02/13/17 02:20 O2 Saturation 91% (92-99) 99% (92-99) Arterial Blood pH 7.23 (7.35-7.45) 7.20 (7.35-7.45) Arterial Blood pCO2 at Patient Temp 86mmHg (35-46) 116mmHg (35-46) Arterial Blood pO2 at Patient Temp 70mmHg (65-108) 191mmHg (65-108) Arterial Blood HCO3 35mmol/L (21-28) 44mmol/L (21-28) Arterial Blood Base Excess 4mmol/L (-3-3) 11mmol/L (-3-3) FiO2 45.0 80 Troponin I Quantitative < 0.017ng/mL (0.000-0.055) < 0.017ng/mL (0.000-0.055) White Blood Count 5.2x10^3/uL (4.0-11.0) Red Blood Count 3.83x10^6/uL (3.50-5.40) Hemoglobin 12.4g/dL (12.0-15.5) Hematocrit 37.8% (36.0-47.0) Mean Corpuscular Volume 99fL (79-100) Mean Corpuscular Hemoglobin 32pg (25-35) Mean Corpuscular Hemoglobin Concent 33g/dL (31-37) Red Cell Distribution Width 13.1% (11.5-14.5) Platelet Count 165x10^3/uL (140-400) Neutrophils (%) (Auto) 84% (31-73) Lymphocytes (%) (Auto) 11% (24-48) Monocytes (%) (Auto) 4% (0-9) Eosinophils (%) (Auto) 0% (0-3) Basophils (%) (Auto) 0% (0-3) Neutrophils # (Auto) 4.4x10^3uL (1.8-7.7) Lymphocytes # (Auto) 0.6x10^3/uL (1.0-4.8) Monocytes # (Auto) 0.2x10^3/uL (0.0-1.1) Eosinophils # (Auto) 0.0x10^3/uL (0.0-0.7) Basophils # (Auto) 0.0x10^3/uL (0.0-0.2) Sodium Level 141mmol/L (136-145) Potassium Level 4.3mmol/L (3.5-5.1) Chloride Level 97mmol/L (98-107) Carbon Dioxide Level 38mmol/L (21-32) Anion Gap 6 (6-14) Blood Urea Nitrogen 25mg/dL (7-20) Creatinine 0.9mg/dL (0.6-1.0) Estimated GFR (Cockcroft-Gault) 63.2 Glucose Level 151mg/dL (70-99) Calcium Level 9.9mg/dL (8.5-10.1) Test 02/13/17 07:15 O2 Saturation 88% (92-99) Arterial Blood pH 7.27 (7.35-7.45) Arterial Blood pCO2 at Patient Temp 78mmHg (35-46) Arterial Blood pO2 at Patient Temp 55mmHg (65-108) Arterial Blood HCO3 35mmol/L (21-28) Arterial Blood Base Excess 6mmol/L (-3-3) FiO2 45 ECHOCARDIOGRAM ECHOCARDIOGRAM <Conclusion> The left ventricle cavity is mildly decreased in size. The left ventricle is hyperdynamic. The Ejection Fraction is 65-70%. The right atrium is mild to moderately dilated. There is no significant aortic valvular stenosis. Doppler and Color Flow revealed no significant aortic regurgitation. Doppler and Color Flow revealed trace mitral valve regurgitation. Doppler and Color Flow revealed mild tricuspid regurgitation. The PA pressure was estimated at 62 mmHg. DATE: 05/17/16 6309 ASSESSMENT/PLAN ASSESSMENT/PLAN 1. Acute on chronic respiratory failure with AECOPD/severe pulmonary HTN 2. Acute on Chronic Diastolic Heart Failure: induced by above 4. HTN: no regimen, hypotensive in the past. initially labile now controlled. Recommendations 1. Bipap, follow pulmonary recommendations 2. Continue with PO lasix therapy, replace lytes as warranted 3. Continue with supportive care. TTE today. 4. Will place on hydralazine IV prn. Problems: FRANKY DEVINE MD 02/13/17 1552: CARDIAC CONSULT ALLERGIES ALLERGIES: Coded Allergies: No Known Drug Allergies (Unverified , 05/17/16) ASSESSMENT/PLAN ASSESSMENT/PLAN Patient seen and examined. Agree with the nurse practitioner note. 61-year-old woman with severe COPD presenting with hypercapnic and hypoxic respiratory failure. Normal heart tones on examination. Echocardiogram with moderate pulmonary hypertension and normal LV systolic function. Gentle diuresis as tolerated. No further cardiovascular testing. Supportive care. We will follow along peripherally. Problems: KATT MOLINA APRN Feb 13, 2017 09:55 FRANKY DEVINE MD Feb 13, 2017 15:52
[2017-02-13 10:12] LABS: HCO3 ABG 42 mmol/L (21-28); PH ABG 7.31 (7.35-7.45); PO2 ABG 95 mmHg (65-108); SAT O2 ABG 97 % (92-99)
[2017-02-13 10:15] LABS: FIO2 ABG 50; PCO2 ABG 87 mmHg (35-46)
[2017-02-13 11:00] VITALS: BP 138/75
--- NOTE | 2017-02-13 11:02 | PDOC ---
PROGRESS NOTES Chief Complaint Chief Complaint 1. acute on chronic resp failure with hypoxia and hypercapnia 2. COPD , emphysema 3. bronchitis 4. mild chronic diastolic CHF 5. htn uncontrolled 6. tobaccoism 7.obesity 8. anxiety 9. uti History of Present Illness History of Present Illness On biPAP Abg today pH 7.31, Co2 87, O2 91 CXR I have personally reviewed: IMPRESSION: Cardiomegaly with borderline vascular congestion. PLAn: Follow pulmo and cards recs ABG again willie labs willie Pt/OT Hold Po doxy \Urine cx ordered Nebs IV steroids COnt IV levaquin \DVt and PPI Vitals Vitals Vital Signs Date Time Temp Pulse Resp B/P Pulse Ox O2 Delivery O2 Flow Rate FiO2 02/13/17 09:05 95 BiPAP/CPAP 02/13/17 07:00 98.2 92 22 129/69 98.2 02/12/17 23:03 5.0 Physical Exam General: No acute distress Heart: Regular rate, Normal S1, Normal S2, No murmurs Lungs: Other (dec BS) Abdomen: Normal bowel sounds, Soft, No tenderness, No hepatosplenomegaly Extremities: No clubbing, No edema, Normal pulses Skin: No rashes, No breakdown, No significant lesion Labs LABS Laboratory Tests Test 02/12/17 12:25 02/12/17 12:40 02/12/17 13:45 02/12/17 16:15 White Blood Count 6.9x10^3/uL (4.0-11.0) Red Blood Count 4.10x10^6/uL (3.50-5.40) Hemoglobin 13.4g/dL (12.0-15.5) Hematocrit 39.9% (36.0-47.0) Mean Corpuscular Volume 97fL (79-100) Mean Corpuscular Hemoglobin 33pg (25-35) Mean Corpuscular Hemoglobin Concent 34g/dL (31-37) Red Cell Distribution Width 13.1% (11.5-14.5) Platelet Count 168x10^3/uL (140-400) Neutrophils (%) (Auto) 78% (31-73) Lymphocytes (%) (Auto) 10% (24-48) Monocytes (%) (Auto) 12% (0-9) Eosinophils (%) (Auto) 0% (0-3) Basophils (%) (Auto) 0% (0-3) Neutrophils # (Auto) 5.4x10^3uL (1.8-7.7) Lymphocytes # (Auto) 0.7x10^3/uL (1.0-4.8) Monocytes # (Auto) 0.8x10^3/uL (0.0-1.1) Eosinophils # (Auto) 0.0x10^3/uL (0.0-0.7) Basophils # (Auto) 0.0x10^3/uL (0.0-0.2) Prothrombin Time 13.2SEC (11.7-14.0) Prothromb Time International Ratio 1.1 (0.8-1.1) Sodium Level 140mmol/L (136-145) Potassium Level 4.0mmol/L (3.5-5.1) Chloride Level 99mmol/L (98-107) Carbon Dioxide Level 40mmol/L (21-32) Anion Gap 1 (6-14) Blood Urea Nitrogen 19mg/dL (7-20) Creatinine 0.9mg/dL (0.6-1.0) Estimated GFR (Cockcroft-Gault) 63.2 Glucose Level 113mg/dL (70-99) Calcium Level 9.8mg/dL (8.5-10.1) Magnesium Level 2.2mg/dL (1.8-2.4) Total Bilirubin 0.7mg/dL (0.2-1.0) Direct Bilirubin 0.2mg/dL (0.0-0.2) Aspartate Amino Transf (AST/SGOT) 14U/L (15-37) Alanine Aminotransferase (ALT/SGPT) 15U/L (14-59) Alkaline Phosphatase 55U/L (46-116) Creatine Kinase 33U/L (26-192) Creatine Kinase MB (Mass) 1.1ng/mL (0.0-3.6) Creatine Kinase MB Relative Index % (0-4) Troponin I Quantitative < 0.017ng/mL (0.000-0.055) FG-Ylx-D-Type Natriuretic Peptide 211pg/mL (0-124) Total Protein 7.8g/dL (6.4-8.2) Albumin 3.5g/dL (3.4-5.0) Lipase 100U/L (73-393) Thyroid Stimulating Hormone (TSH) 0.458uIU/mL (0.358-3.74) Urine Collection Type Void Urine Color Banner Urine Clarity Cloudy Urine pH 5.5 Urine Specific [place] 1.025 Urine Protein 100mg/dL (NEG-TRACE) Urine Glucose (UA) Negativemg/dL (NEG) Urine Ketones (Stick) Tracemg/dL (NEG) Urine Blood Small (NEG) Urine Nitrite Negative (NEG) Urine Bilirubin Moderate (NEG) Urine Urobilinogen Dipstick 1.0mg/dL (0.2 mg/dL) Urine Leukocyte Esterase Large (NEG) Urine RBC Occ/HPF (0-2) Urine WBC 5-10/HPF (0-4) Urine Squamous Epithelial Cells Few/LPF Urine Bacteria Moderate/HPF (0-FEW) Urine Hyaline Casts Moderate/HPF Urine Mucus Slight/LPF O2 Saturation 94% (92-99) 91% (92-99) Arterial Blood pH 7.18 (7.35-7.45) 7.23 (7.35-7.45) Arterial Blood pCO2 at Patient Temp 126mmHg (35-46) 86mmHg (35-46) Arterial Blood pO2 at Patient Temp 82mmHg (65-108) 70mmHg (65-108) Arterial Blood HCO3 46mmol/L (21-28) 35mmol/L (21-28) Arterial Blood Base Excess 12mmol/L (-3-3) 4mmol/L (-3-3) FiO2 40.0 45.0 Test 02/12/17 19:30 02/12/17 19:49 02/13/17 02:20 02/13/17 07:15 Troponin I Quantitative < 0.017ng/mL (0.000-0.055) < 0.017ng/mL (0.000-0.055) O2 Saturation 99% (92-99) 88% (92-99) Arterial Blood pH 7.20 (7.35-7.45) 7.27 (7.35-7.45) Arterial Blood pCO2 at Patient Temp 116mmHg (35-46) 78mmHg (35-46) Arterial Blood pO2 at Patient Temp 191mmHg (65-108) 55mmHg (65-108) Arterial Blood HCO3 44mmol/L (21-28) 35mmol/L (21-28) Arterial Blood Base Excess 11mmol/L (-3-3) 6mmol/L (-3-3) FiO2 80 45 White Blood Count 5.2x10^3/uL (4.0-11.0) Red Blood Count 3.83x10^6/uL (3.50-5.40) Hemoglobin 12.4g/dL (12.0-15.5) Hematocrit 37.8% (36.0-47.0) Mean Corpuscular Volume 99fL (79-100) Mean Corpuscular Hemoglobin 32pg (25-35) Mean Corpuscular Hemoglobin Concent 33g/dL (31-37) Red Cell Distribution Width 13.1% (11.5-14.5) Platelet Count 165x10^3/uL (140-400) Neutrophils (%) (Auto) 84% (31-73) Lymphocytes (%) (Auto) 11% (24-48) Monocytes (%) (Auto) 4% (0-9) Eosinophils (%) (Auto) 0% (0-3) Basophils (%) (Auto) 0% (0-3) Neutrophils # (Auto) 4.4x10^3uL (1.8-7.7) Lymphocytes # (Auto) 0.6x10^3/uL (1.0-4.8) Monocytes # (Auto) 0.2x10^3/uL (0.0-1.1) Eosinophils # (Auto) 0.0x10^3/uL (0.0-0.7) Basophils # (Auto) 0.0x10^3/uL (0.0-0.2) Sodium Level 141mmol/L (136-145) Potassium Level 4.3mmol/L (3.5-5.1) Chloride Level 97mmol/L (98-107) Carbon Dioxide Level 38mmol/L (21-32) Anion Gap 6 (6-14) Blood Urea Nitrogen 25mg/dL (7-20) Creatinine 0.9mg/dL (0.6-1.0) Estimated GFR (Cockcroft-Gault) 63.2 Glucose Level 151mg/dL (70-99) Calcium Level 9.9mg/dL (8.5-10.1) Test 02/13/17 10:00 O2 Saturation 97% (92-99) Arterial Blood pH 7.31 (7.35-7.45) Arterial Blood pCO2 at Patient Temp 87mmHg (35-46) Arterial Blood pO2 at Patient Temp 95mmHg (65-108) Arterial Blood HCO3 42mmol/L (21-28) Arterial Blood Base Excess 12mmol/L (-3-3) FiO2 50 Review of Systems Review of Systems on bipap, limited Assessment and Plan Assessmemt and Plan Problems Medical Problems: (1) COPD (chronic obstructive pulmonary disease) Status: Acute Problems: Comment Review of Relevant I have reviewed the following items natasha (where applicable) has been applied. Labs Laboratory Tests Test 02/12/17 10:50 02/12/17 12:25 02/12/17 12:40 02/12/17 13:45 O2 Saturation 92% (92-99) 94% (92-99) Arterial Blood pH 7.22 (7.35-7.45) 7.18 (7.35-7.45) Arterial Blood pH (Temp corrected) 7.23 Arterial Blood pCO2 at Patient Temp 101mmHg (35-46) 126mmHg (35-46) Arterial Blood pCO2 (Temp correct) 100mmHg Arterial Blood pO2 at Patient Temp 68mmHg (65-108) 82mmHg (65-108) Arterial Blood pO2 (Temp corrected) 66mmHg Arterial Blood HCO3 41mmol/L (21-28) 46mmol/L (21-28) Arterial Blood Base Excess 9mmol/L (-3-3) 12mmol/L (-3-3) FiO2 45 40.0 White Blood Count 6.9x10^3/uL (4.0-11.0) Red Blood Count 4.10x10^6/uL (3.50-5.40) Hemoglobin 13.4g/dL (12.0-15.5) Hematocrit 39.9% (36.0-47.0) Mean Corpuscular Volume 97fL (79-100) Mean Corpuscular Hemoglobin 33pg (25-35) Mean Corpuscular Hemoglobin Concent 34g/dL (31-37) Red Cell Distribution Width 13.1% (11.5-14.5) Platelet Count 168x10^3/uL (140-400) Neutrophils (%) (Auto) 78% (31-73) Lymphocytes (%) (Auto) 10% (24-48) Monocytes (%) (Auto) 12% (0-9) Eosinophils (%) (Auto) 0% (0-3) Basophils (%) (Auto) 0% (0-3) Neutrophils # (Auto) 5.4x10^3uL (1.8-7.7) Lymphocytes # (Auto) 0.7x10^3/uL (1.0-4.8) Monocytes # (Auto) 0.8x10^3/uL (0.0-1.1) Eosinophils # (Auto) 0.0x10^3/uL (0.0-0.7) Basophils # (Auto) 0.0x10^3/uL (0.0-0.2) Prothrombin Time 13.2SEC (11.7-14.0) Prothromb Time International Ratio 1.1 (0.8-1.1) Sodium Level 140mmol/L (136-145) Potassium Level 4.0mmol/L (3.5-5.1) Chloride Level 99mmol/L (98-107) Carbon Dioxide Level 40mmol/L (21-32) Anion Gap 1 (6-14) Blood Urea Nitrogen 19mg/dL (7-20) Creatinine 0.9mg/dL (0.6-1.0) Estimated GFR (Cockcroft-Gault) 63.2 Glucose Level 113mg/dL (70-99) Calcium Level 9.8mg/dL (8.5-10.1) Magnesium Level 2.2mg/dL (1.8-2.4) Total Bilirubin 0.7mg/dL (0.2-1.0) Direct Bilirubin 0.2mg/dL (0.0-0.2) Aspartate Amino Transf (AST/SGOT) 14U/L (15-37) Alanine Aminotransferase (ALT/SGPT) 15U/L (14-59) Alkaline Phosphatase 55U/L (46-116) Creatine Kinase 33U/L (26-192) Creatine Kinase MB (Mass) 1.1ng/mL (0.0-3.6) Creatine Kinase MB Relative Index % (0-4) Troponin I Quantitative < 0.017ng/mL (0.000-0.055) FT-Vgy-K-Type Natriuretic Peptide 211pg/mL (0-124) Total Protein 7.8g/dL (6.4-8.2) Albumin 3.5g/dL (3.4-5.0) Lipase 100U/L (73-393) Thyroid Stimulating Hormone (TSH) 0.458uIU/mL (0.358-3.74) Urine Collection Type Void Urine Color Banner Urine Clarity Cloudy Urine pH 5.5 Urine Specific [place] 1.025 Urine Protein 100mg/dL (NEG-TRACE) Urine Glucose (UA) Negativemg/dL (NEG) Urine Ketones (Stick) Tracemg/dL (NEG) Urine Blood Small (NEG) Urine Nitrite Negative (NEG) Urine Bilirubin Moderate (NEG) Urine Urobilinogen Dipstick 1.0mg/dL (0.2 mg/dL) Urine Leukocyte Esterase Large (NEG) Urine RBC Occ/HPF (0-2) Urine WBC 5-10/HPF (0-4) Urine Squamous Epithelial Cells Few/LPF Urine Bacteria Moderate/HPF (0-FEW) Urine Hyaline Casts Moderate/HPF Urine Mucus Slight/LPF Test 02/12/17 16:15 02/12/17 19:30 02/12/17 19:49 02/13/17 02:20 O2 Saturation 91% (92-99) 99% (92-99) Arterial Blood pH 7.23 (7.35-7.45) 7.20 (7.35-7.45) Arterial Blood pCO2 at Patient Temp 86mmHg (35-46) 116mmHg (35-46) Arterial Blood pO2 at Patient Temp 70mmHg (65-108) 191mmHg (65-108) Arterial Blood HCO3 35mmol/L (21-28) 44mmol/L (21-28) Arterial Blood Base Excess 4mmol/L (-3-3) 11mmol/L (-3-3) FiO2 45.0 80 Troponin I Quantitative < 0.017ng/mL (0.000-0.055) < 0.017ng/mL (0.000-0.055) White Blood Count 5.2x10^3/uL (4.0-11.0) Red Blood Count 3.83x10^6/uL (3.50-5.40) Hemoglobin 12.4g/dL (12.0-15.5) Hematocrit 37.8% (36.0-47.0) Mean Corpuscular Volume 99fL (79-100) Mean Corpuscular Hemoglobin 32pg (25-35) Mean Corpuscular Hemoglobin Concent 33g/dL (31-37) Red Cell Distribution Width 13.1% (11.5-14.5) Platelet Count 165x10^3/uL (140-400) Neutrophils (%) (Auto) 84% (31-73) Lymphocytes (%) (Auto) 11% (24-48) Monocytes (%) (Auto) 4% (0-9) Eosinophils (%) (Auto) 0% (0-3) Basophils (%) (Auto) 0% (0-3) Neutrophils # (Auto) 4.4x10^3uL (1.8-7.7) Lymphocytes # (Auto) 0.6x10^3/uL (1.0-4.8) Monocytes # (Auto) 0.2x10^3/uL (0.0-1.1) Eosinophils # (Auto) 0.0x10^3/uL (0.0-0.7) Basophils # (Auto) 0.0x10^3/uL (0.0-0.2) Sodium Level 141mmol/L (136-145) Potassium Level 4.3mmol/L (3.5-5.1) Chloride Level 97mmol/L (98-107) Carbon Dioxide Level 38mmol/L (21-32) Anion Gap 6 (6-14) Blood Urea Nitrogen 25mg/dL (7-20) Creatinine 0.9mg/dL (0.6-1.0) Estimated GFR (Cockcroft-Gault) 63.2 Glucose Level 151mg/dL (70-99) Calcium Level 9.9mg/dL (8.5-10.1) Test 02/13/17 07:15 02/13/17 10:00 O2 Saturation 88% (92-99) 97% (92-99) Arterial Blood pH 7.27 (7.35-7.45) 7.31 (7.35-7.45) Arterial Blood pCO2 at Patient Temp 78mmHg (35-46) 87mmHg (35-46) Arterial Blood pO2 at Patient Temp 55mmHg (65-108) 95mmHg (65-108) Arterial Blood HCO3 35mmol/L (21-28) 42mmol/L (21-28) Arterial Blood Base Excess 6mmol/L (-3-3) 12mmol/L (-3-3) FiO2 45 50 Laboratory Tests Test 02/12/17 12:25 02/12/17 12:40 02/12/17 13:45 02/12/17 16:15 White Blood Count 6.9x10^3/uL (4.0-11.0) Red Blood Count 4.10x10^6/uL (3.50-5.40) Hemoglobin 13.4g/dL (12.0-15.5) Hematocrit 39.9% (36.0-47.0) Mean Corpuscular Volume 97fL (79-100) Mean Corpuscular Hemoglobin 33pg (25-35) Mean Corpuscular Hemoglobin Concent 34g/dL (31-37) Red Cell Distribution Width 13.1% (11.5-14.5) Platelet Count 168x10^3/uL (140-400) Neutrophils (%) (Auto) 78% (31-73) Lymphocytes (%) (Auto) 10% (24-48) Monocytes (%) (Auto) 12% (0-9) Eosinophils (%) (Auto) 0% (0-3) Basophils (%) (Auto) 0% (0-3) Neutrophils # (Auto) 5.4x10^3uL (1.8-7.7) Lymphocytes # (Auto) 0.7x10^3/uL (1.0-4.8) Monocytes # (Auto) 0.8x10^3/uL (0.0-1.1) Eosinophils # (Auto) 0.0x10^3/uL (0.0-0.7) Basophils # (Auto) 0.0x10^3/uL (0.0-0.2) Prothrombin Time 13.2SEC (11.7-14.0) Prothromb Time International Ratio 1.1 (0.8-1.1) Sodium Level 140mmol/L (136-145) Potassium Level 4.0mmol/L (3.5-5.1) Chloride Level 99mmol/L (98-107) Carbon Dioxide Level 40mmol/L (21-32) Anion Gap 1 (6-14) Blood Urea Nitrogen 19mg/dL (7-20) Creatinine 0.9mg/dL (0.6-1.0) Estimated GFR (Cockcroft-Gault) 63.2 Glucose Level 113mg/dL (70-99) Calcium Level 9.8mg/dL (8.5-10.1) Magnesium Level 2.2mg/dL (1.8-2.4) Total Bilirubin 0.7mg/dL (0.2-1.0) Direct Bilirubin 0.2mg/dL (0.0-0.2) Aspartate Amino Transf (AST/SGOT) 14U/L (15-37) Alanine Aminotransferase (ALT/SGPT) 15U/L (14-59) Alkaline Phosphatase 55U/L (46-116) Creatine Kinase 33U/L (26-192) Creatine Kinase MB (Mass) 1.1ng/mL (0.0-3.6) Creatine Kinase MB Relative Index % (0-4) Troponin I Quantitative < 0.017ng/mL (0.000-0.055) IF-Uix-P-Type Natriuretic Peptide 211pg/mL (0-124) Total Protein 7.8g/dL (6.4-8.2) Albumin 3.5g/dL (3.4-5.0) Lipase 100U/L (73-393) Thyroid Stimulating Hormone (TSH) 0.458uIU/mL (0.358-3.74) Urine Collection Type Void Urine Color Banner Urine Clarity Cloudy Urine pH 5.5 Urine Specific [place] 1.025 Urine Protein 100mg/dL (NEG-TRACE) Urine Glucose (UA) Negativemg/dL (NEG) Urine Ketones (Stick) Tracemg/dL (NEG) Urine Blood Small (NEG) Urine Nitrite Negative (NEG) Urine Bilirubin Moderate (NEG) Urine Urobilinogen Dipstick 1.0mg/dL (0.2 mg/dL) Urine Leukocyte Esterase Large (NEG) Urine RBC Occ/HPF (0-2) Urine WBC 5-10/HPF (0-4) Urine Squamous Epithelial Cells Few/LPF Urine Bacteria Moderate/HPF (0-FEW) Urine Hyaline Casts Moderate/HPF Urine Mucus Slight/LPF O2 Saturation 94% (92-99) 91% (92-99) Arterial Blood pH 7.18 (7.35-7.45) 7.23 (7.35-7.45) Arterial Blood pCO2 at Patient Temp 126mmHg (35-46) 86mmHg (35-46) Arterial Blood pO2 at Patient Temp 82mmHg (65-108) 70mmHg (65-108) Arterial Blood HCO3 46mmol/L (21-28) 35mmol/L (21-28) Arterial Blood Base Excess 12mmol/L (-3-3) 4mmol/L (-3-3) FiO2 40.0 45.0 Test 02/12/17 19:30 02/12/17 19:49 02/13/17 02:20 02/13/17 07:15 Troponin I Quantitative < 0.017ng/mL (0.000-0.055) < 0.017ng/mL (0.000-0.055) O2 Saturation 99% (92-99) 88% (92-99) Arterial Blood pH 7.20 (7.35-7.45) 7.27 (7.35-7.45) Arterial Blood pCO2 at Patient Temp 116mmHg (35-46) 78mmHg (35-46) Arterial Blood pO2 at Patient Temp 191mmHg (65-108) 55mmHg (65-108) Arterial Blood HCO3 44mmol/L (21-28) 35mmol/L (21-28) Arterial Blood Base Excess 11mmol/L (-3-3) 6mmol/L (-3-3) FiO2 80 45 White Blood Count 5.2x10^3/uL (4.0-11.0) Red Blood Count 3.83x10^6/uL (3.50-5.40) Hemoglobin 12.4g/dL (12.0-15.5) Hematocrit 37.8% (36.0-47.0) Mean Corpuscular Volume 99fL (79-100) Mean Corpuscular Hemoglobin 32pg (25-35) Mean Corpuscular Hemoglobin Concent 33g/dL (31-37) Red Cell Distribution Width 13.1% (11.5-14.5) Platelet Count 165x10^3/uL (140-400) Neutrophils (%) (Auto) 84% (31-73) Lymphocytes (%) (Auto) 11% (24-48) Monocytes (%) (Auto) 4% (0-9) Eosinophils (%) (Auto) 0% (0-3) Basophils (%) (Auto) 0% (0-3) Neutrophils # (Auto) 4.4x10^3uL (1.8-7.7) Lymphocytes # (Auto) 0.6x10^3/uL (1.0-4.8) Monocytes # (Auto) 0.2x10^3/uL (0.0-1.1) Eosinophils # (Auto) 0.0x10^3/uL (0.0-0.7) Basophils # (Auto) 0.0x10^3/uL (0.0-0.2) Sodium Level 141mmol/L (136-145) Potassium Level 4.3mmol/L (3.5-5.1) Chloride Level 97mmol/L (98-107) Carbon Dioxide Level 38mmol/L (21-32) Anion Gap 6 (6-14) Blood Urea Nitrogen 25mg/dL (7-20) Creatinine 0.9mg/dL (0.6-1.0) Estimated GFR (Cockcroft-Gault) 63.2 Glucose Level 151mg/dL (70-99) Calcium Level 9.9mg/dL (8.5-10.1) Test 02/13/17 10:00 O2 Saturation 97% (92-99) Arterial Blood pH 7.31 (7.35-7.45) Arterial Blood pCO2 at Patient Temp 87mmHg (35-46) Arterial Blood pO2 at Patient Temp 95mmHg (65-108) Arterial Blood HCO3 42mmol/L (21-28) Arterial Blood Base Excess 12mmol/L (-3-3) FiO2 50 Medications Current Medications Albuterol/ Ipratropium (Duoneb) 3 ml 1X ONCE NEB Last administered on t 13:43; Start 02/12/17 at 13:15; Stop 02/12/17 at 13:16; Status DC Methylprednisolone Sodium Succinate 125 mg 125 mg 1X ONCE IV Last administered on 02/12/17 15:01; Start 02/12/17 at 13:45; Stop 02/12/17 at 13:46 ; Status DC Azithromycin (Zithromax 500mg Ivpb For Omni) 250 ml @ 250 mls/hr 1X ONCE IV Last administered on 02/12/17 15:02; Start 02/12/17 at 13:45; Stop 02/12/17 at 14:44; Status DC Furosemide (Lasix) 40 mg DAILY PO Last administered on 02/13/17 08:15; Start 02/12/17 at 15:00 Potassium Chloride 20 meq 20 meq DAILY PO Last administered on 02/13/17 08:15 ; Start 02/12/17 at 15:00 Levofloxacin/ Dextrose (LEVAQUIN 500mg PREMIX) 100 ml @ 100 mls/hr Q24H IV ; Start 02/12/17 at 15:00; Status Cancel Albuterol/ Ipratropium (Duoneb) 3 ml RTQID NEB Last administered on 02/12/17 19:35; Start 02/12/17 at 16:00 Albuterol Sulfate (Ventolin Neb Soln) 2.5 mg PRN Q2HR PRN NEB SHORTNESS OF BREATH Last administered on 02/13/17 01:50; Start 02/12/17 at 14:15 Methylprednisolone Sodium Succinate (Solu-Medrol 40mg Vial) 40 mg BID IV Last administered on 02/13/17 08:16; Start 02/12/17 at 21:00 Famotidine (Pepcid) 20 mg DAILY PO Last administered on 02/13/17 08:15; Start 02/12/17 at 15:00 Enoxaparin Sodium (Lovenox 40mg Syringe) 40 mg Q24H SQ Last administered on 15:13; Start 02/12/17 at 15:00 Guaifenesin 600 mg 600 mg BID PO Last administered on 02/13/17 08:15; Start at 21:00 Levofloxacin/ Dextrose (LEVAQUIN 500mg PREMIX) 100 ml @ 100 mls/hr 1X ONCE IV ; Start 02/12/17 at 14:30; Stop 02/12/17 at 15:29; Status DC Hydralazine HCl (Apresoline) 10 mg PRN Q4HRS PRN IVP ELEVATED BP, SEE COMMENTS ; Start 02/12/17 at 14:30 Alprazolam 0.25 mg 0.25 mg 1X ONCE PO Last administered on 02/13/17t 01:28; Start 02/13/17 at 01:30; Stop 02/13/17 at 01:31; Status DC Levofloxacin/ Dextrose (LEVAQUIN 500mg PREMIX) 100 ml @ 100 mls/hr Q24H IV ; Start 02/13/17 at 11:00 Active Scripts Active Klor-Con M20 (Potassium Chloride) 20 Meq Tab.er.prt 20 Meq PO DAILY Duoneb 0.5-3(2.5) Mg/3 Ml (Albuterol/Ipratropium) 3 Ml Ampul.neb 3 Ml NEB PRN QID PRN Furosemide 40 Mg Tablet 40 Mg PO DAILY Reported Doxycycline Monohydrate 500 Gm Powder 100 Gm MC BID Vitals/I & O Vital Sign - Last 24 Hours 02/12/17 02/12/17 02/12/17 02/12/17 11:20 11:45 12:15 12:45 Temp 97.7 97.7 Pulse 117 96 101 116 Resp B/P 176/105 139/78 145/79 133/74 Pulse Ox 80 94 94 94 O2 Delivery Nasal Cannula Nasal Cannula Nasal Cannula Nasal Cannula O2 Flow Rate 4 3 3 5 02/12/17 02/12/17 02/12/17 02/12/17 13:15 13:43 13:45 14:15 Pulse 93 97 104 Resp B/P 151/88 166/76 161/69 Pulse Ox 97 96 96 92 O2 Delivery Nasal Cannula Nasal Cannula Nasal Cannula BiPAP/CPAP O2 Flow Rate 5 5.0 5 02/12/17 02/12/17 02/12/17 02/12/17 14:22 14:45 15:15 15:45 Pulse 107 107 94 Resp B/P 134/75 143/60 131/81 Pulse Ox 93 92 94 93 O2 Delivery BiPAP/CPAP BiPAP/CPAP BiPAP/CPAP BiPAP/CPAP 02/12/17 02/12/17 02/12/17 02/12/17 15:52 16:48 17:13 19:30 Temp 99.9 97.9 99.9 97.9 Pulse 84 99 Resp 20 B/P 106/75 142/52 Pulse Ox 90 98 97 O2 Delivery BiPAP/CPAP Mask BiPAP/CPAP Nasal Cannula O2 Flow Rate 5.0 02/12/17 02/12/17 02/12/17 02/12/17 19:37 20:00 23:03 23:05 Temp 98.0 98.0 Pulse 87 Resp 24 B/P 102/39 Pulse Ox 96 97 94 O2 Delivery Nasal Cannula Bi-pap BiPAP/CPAP O2 Flow Rate 5.0 5.0 02/13/17 02/13/17 02/13/17 02/13/17 00:30 01:52 03:30 04:44 Temp 98.7 98.7 Pulse 69 Resp 24 B/P 112/42 Pulse Ox 93 95 93 95 O2 Delivery BiPAP/CPAP BiPAP/CPAP BiPAP/CPAP BiPAP/CPAP 02/13/17 02/13/17 02/13/17 02/13/17 06:01 07:00 07:14 08:10 Temp 98.2 98.2 Pulse 92 Resp 22 B/P 129/69 Pulse Ox 95 92 95 O2 Delivery BiPAP/CPAP BiPAP/CPAP BiPAP/CPAP Bi-pap 02/13/17 09:05 Pulse Ox 95 O2 Delivery BiPAP/CPAP Intake and Output 02/12/17 02/12/17 02/13/17 15:00 23:00 07:00 Output Total 100 ml Balance -100 ml RYAN METZGER MD Feb 13, 2017 11:02
--- NOTE | 2017-02-13 11:48 | PDOC ---
Provider Note Provider Note dictated JONATHAN BALDERRAMA MD Feb 13, 2017 11:48
[2017-02-13] MEDS ORDERED: FUROSEMIDE 40 MG/4 ML VIAL IVP ONE (12:00)
--- NOTE | 2017-02-13 12:08 | CONS ---
DATE OF CONSULTATION: 02/13/2017 ATTENDING PHYSICIAN: Dr. Cheng. REASON FOR CONSULTATION: Respiratory failure. HISTORY OF PRESENT ILLNESS: The patient is a 61-year-old female who has been a smoker since age 14 and continues to smoke cigarettes. She presented to the hospital complaining of shortness for the last 3 days. The patient has been having a cough for about a week or so. She has no fever, no chest pain. She has no significant leg edema. The patient was starting to yellow sputum production. A chest x-ray was reviewed and there was evidence of mild congestive heart failure and cardiomegaly. Her arterial blood gases were highly abnormal. Initial ABG showed a pH of 7.18, pCO2 of 126 and a pO2 of 82 on 40% FIO2. Since then, ABGs have fluctuated with some mild improvement in the pCO2 and pH. The latest one showed a pH of 7.31, pCO2 of 87 and a pO2 of 95 on 50% FIO2. She is awake, following commands. She does not want to use BiPAP, but has been tolerating it. PAST MEDICAL HISTORY: Significant for history of ongoing tobaccoism, suspected COPD, history of congestive heart failure. PAST SURGICAL HISTORY: Total hip replacement. FAMILY HISTORY: Noncontributory to lungs. ALLERGIES: None. CURRENT MEDICATIONS: Reviewed as listed in the MRAD including antibiotics and steroids. REVIEW OF SYSTEMS: As discussed in history of present illness. PHYSICAL EXAMINATION: VITAL SIGNS: Stable. Pulse ox 92% on current FiO2. HEENT: Sclerae nonicteric. NECK: Supple. LUNGS: Diminished breath sounds. CARDIOVASCULAR: Regular rate and rhythm. ABDOMEN: Soft, nontender. EXTREMITIES: No pitting edema. LABORATORY DATA: Reviewed ABGs as discussed in history of present illness. BUN is 25, creatinine 0.9. White cell count 5.2, hemoglobin 12.4, platelets are 165. IMPRESSION: 1. Acute on chronic hypercapnic respiratory failure secondary to chronic obstructive pulmonary disease exacerbation and possible acute cor pulmonale. Cannot exclude mild congestive heart failure. We will need to get an echo. 2. Long history of tobaccoism, suspect underlying chronic obstructive pulmonary disease with chronic hypercarbia. 3. Abnormal chest x-ray with mild vascular congestion and cardiomegaly, needs an echo to rule out right and left heart dysfunction. RECOMMENDATIONS: 1. Continue with present BiPAP until respiratory acidosis is fully compensated. 2. Smoking cessation counseling provided. 3. ABGs as needed. 4. Mild diuresis. 5. Continue antibiotics. She probably has acute bronchitis. 6. Continue IV steroids. 7. Nebulizer treatment. 8. Discussed with granddaughter and discussed with the patient and smoking cessation counseling provided. Critical care time 35 minutes. JONATHAN BALDERRAMA MD DR: KRISTY/wesley JOB#: [id number] / [id number]
[2017-02-13] MEDS: IPRATRPIUM/ALBUTEROL 0.5/2.5MG 3 ML NEBU. NEB SCH ×3 (12:13→20:03)
[2017-02-13] MEDS ORDERED: FUROSEMIDE 20 MG/2 ML VIAL IVP ONE (12:30)
[2017-02-13 13:48] LABS: HCO3 ABG 41 mmol/L (21-28); PCO2 ABG 68 mmHg (35-46); PH ABG 7.39 (7.35-7.45); PO2 ABG 65 mmHg (65-108); SAT O2 ABG 93 % (92-99)
[2017-02-13 13:49] LABS: FIO2 ABG 40
[2017-02-13 15:00] VITALS: BP 124/69
--- NOTE | 2017-02-13 15:18 | CARD ---
APPROVED REPORT EXAM: Two-dimensional and M-mode echocardiogram with Doppler and color Doppler. Other Information Quality : Limited Rhythm : NSRTechnically limited study due to Bi-pap machine. INDICATION Congestive Heart Failure Respiratory failure. 2D DIMENSIONS RVDd2.7 (2.9-3.5cm)Left Atrium(2D)3.1 (1.6-4.0cm) IVSd0.7 (0.7-1.1cm)Aortic Root(2D)2.9 (2.0-3.7cm) LVDd4.8 (3.9-5.9cm)LVOT Diameter2.1 (1.8-2.4cm) PWd0.6 (0.7-1.1cm)LVDs3.2 (2.5-4.0cm) FS (%) 32.9 %SV65.7 ml LVEF(%)61.3 (>50%) Aortic Valve AoV Peak Stu.157.7cm/sAoV VTI29.8cm AO Peak GR.9.9mmHgLVOT VTI 25.39cm AO Mean GR.5mmHg Mitral Valve MV E Eaosylme08.1cm/sMV E Peak Gr.5mmHg MV DECEL [id number] A Afsutkch236.9cm/s MV E Mean Gr.2mmHgMV [id number] E/A Ratio0.7MV A Tohwuvdi161mu MVA (PHT)4.07cm2 TDI Lateral E' P. V12.83cm/sMedial E' P. V12.63cm/s E/Lateral E'6.6E/Medial E'6.7 Tricuspid Valve TR P. Ubzuclae885qg/sRAP [id number] TR Peak Gr.69ptLbEAHH42fxNm LEFT VENTRICLE The left ventricle is normal size. There is normal left ventricular wall thickness. Left ventricle sy stolic function is normal. The Ejection Fraction is 60-65%. There is normal LV segmental wall motion. Tissue Doppler imaging reveals mild left ventricular diastolic dysfunction. RIGHT VENTRICLE The right ventricle is normal size. The right ventricular systolic function is normal. ATRIA The left atrium size is normal. The right atrium size is normal. The interatrial septum is intact wit h no evidence for an atrial septal defect or patent foramen ovale as noted on 2-D or Doppler imaging. AORTIC VALVE The aortic valve is normal in structure and function. The aortic valve is trileaflet. Doppler and Col or Flow revealed no significant aortic regurgitation. There is no significant aortic valvular stenosi s. MITRAL VALVE The mitral valve is normal in structure and function. There is no mitral valve stenosis. Doppler and Color Flow revealed no mitral valve regurgitation noted. TRICUSPID VALVE The tricuspid valve is normal in structure and function. Doppler and Color Flow revealed mild tricusp id regurgitation.There is moderate pulmonary hypertension. The PA pressure was estimated at 51 mmHg. There is no tricuspid valve stenosis. PULMONIC VALVE The pulmonic valve is not well visualized. Doppler and Color Flow revealed trace pulmonic valvular re gurgitation. There is no pulmonic valvular stenosis. GREAT VESSELS The aortic root is normal in size. Pulmonary veins not recorded. The IVC is normal in size and collap ses >50% with inspiration. PERICARDIAL EFFUSION There is no evidence of significant pericardial effusion. Critical Notification Critical Value: No <Conclusion> Left ventricle systolic function is normal. The Ejection Fraction is 60-65%. There is normal LV segmental wall motion. Tissue Doppler imaging reveals mild left ventricular diastolic dysfunction. Doppler and Color Flow revealed mild tricuspid regurgitation.There is moderate pulmonary hypertension . The PA pressure was estimated at 51 mmHg.
[2017-02-13] MEDS: ENOXAPARIN 40 MG/0.4 ML DISP.SYRIN. SQ SCH (15:19)
[2017-02-13 19:05] VITALS: BP 112/55
[2017-02-13] MEDS: ALPRAZOLAM 0.25 MG TABLET PO PRN (20:48)
[2017-02-13 23:30] VITALS: BP 106/34
[2017-02-14 03:30] VITALS: BP 110/63
[2017-02-14] MEDS: ALBUTEROL SULFATE 2.5 MG/3 ML NEBU. NEB PRN (05:10)
[2017-02-14] MEDS ORDERED: NICOTINE 21MG PATCH. TD PRN (07:30)
[2017-02-14] MEDS: IPRATRPIUM/ALBUTEROL 0.5/2.5MG 3 ML NEBU. NEB SCH ×4 (07:40→20:41)
[2017-02-14] MEDS: FAMOTIDINE 20 MG TABLET. PO SCH (08:10)
[2017-02-14] MEDS: FUROSEMIDE 40 MG TABLET PO SCH (08:10)
[2017-02-14] MEDS: methylPREDNISolone SOD SUCC PF 40 MG/ML VIAL. IV SCH (08:11)
[2017-02-14] MEDS: POTASSIUM CHLORIDE 20 MEQ TABLET.ER. PO SCH (08:11)
[2017-02-14] MEDS: GUAIFENESIN ER 600 MG TABLET.ER PO SCH ×2 (08:11→19:57)
[2017-02-14 08:16] VITALS: BP 147/80
--- NOTE | 2017-02-14 09:20 | PDOC ---
KATT MOLINA CASE MANAGEMENT ASSOCIATE 02/14/17 0920: CARDIO Progress Notes Date and Time Date of Service 02/14/2017 Time of Evaluation 0920 Subjective Subjective: No Chest Pain, No Palpitations, No Dizziness, Other (SOA much better) Vitals Vitals Vital Signs Date Time Temp Pulse Resp B/P Pulse Ox O2 Delivery O2 Flow Rate FiO2 02/14/17 08:16 98.6 96 22 147/80 88 Venturi Mask 4.0 98.6 Weight Weight [ ] Input and Output Intake and Output Intake and Output 02/14/17 07:00 Intake Total 405 ml Output Total 1550 ml Balance -1145 ml Intake Oral 300 ml IV Total 105 ml Output Urine Total 1550 ml Laboratory Labs Laboratory Tests Test 02/13/17 10:00 02/13/17 13:30 O2 Saturation 97% (92-99) 93% (92-99) Arterial Blood pH 7.31 (7.35-7.45) 7.39 (7.35-7.45) Arterial Blood pCO2 at Patient Temp 87mmHg (35-46) 68mmHg (35-46) Arterial Blood pO2 at Patient Temp 95mmHg (65-108) 65mmHg (65-108) Arterial Blood HCO3 42mmol/L (21-28) 41mmol/L (21-28) Arterial Blood Base Excess 12mmol/L (-3-3) 13mmol/L (-3-3) FiO2 50 40 Microbiology Micro Microbiology 02/12/17 Gram Stain - Final, Complete 02/12/17 Urine Culture - Preliminary, Resulted 02/12/17 Urine Culture Result 1 (SINCERE) - Preliminary, Resulted Physical Exam Chest: Symmetric LUNGS: Other (diffuse wheeze) Heart: S1S2, RRR Abdomen: Soft N/T Extremities: No Edema, No Calf Tenderness Neurology: alert, oriented, follow commands Assessment Assessment 1. Acute on chronic respiratory failure with AECOPD: better, off bipap, now on venturi mask 2. Acute on Chronic Diastolic Heart Failure: induced by above. Improved. TTE with normal LV wall motion and EF 60-65% 3. HTN: well controlled 4. Pulmonary HTN: better reading PAP 51 mmHg Recommendations 1. Continue with po lasix therapy. Continue per pulmonary recommendation 2. BMP, Mg today, replace K or Mg as warranted 3. No further cardiac testing, will follow as needed. 4. No routine antiHTN warranted at this time. 5. Reinforced smoking cessation FRANKY DEVINE MD 02/14/17 1831: CARDIO Progress Notes Plan Plan Patient seen and examined. Agree with above nurse practitioner noted. No acute events overnight. She is off BiPAP this morning. Reports that her breathing is much improved. No chest pain. Echocardiogram is unremarkable. On exam she has clear lung sounds. Normal heart tones. Supportive care from a cardiac standpoint. KATT MOLINA APRN Feb 14, 2017 09:20 FRANKY DEVINE MD Feb 14, 2017 18:31
--- NOTE | 2017-02-14 09:58 | PDOC ---
PULMONARY PROGRESS NOTES Subjective didnt use bipap, has sob, cough, better, no pain. no runny nose. Vitals Vital Signs Date Time Temp Pulse Resp B/P Pulse Ox O2 Delivery O2 Flow Rate FiO2 02/14/17 08:16 98.6 96 22 147/80 88 Venturi Mask 4.0 98.6 Comments ros as mentioned as above other sys otherwise neg ROS: No Nausea, No Chest Pain, No Abdominal Pain, No Increase Cough General: Alert, Oriented X4 HEENT: Other (nc at perrl, nose, throat clear) Lungs: Crackles, Other (dec BS) Cardiovascular: S1, S2 Abdomen: Soft, Non-tender, Other Neuro Exam: Alert, Oriented Extremities: No Edema Skin: Warm Labs Laboratory Tests Test 02/12/17 12:25 02/12/17 12:40 02/12/17 13:45 02/12/17 16:15 White Blood Count 6.9x10^3/uL (4.0-11.0) Red Blood Count 4.10x10^6/uL (3.50-5.40) Hemoglobin 13.4g/dL (12.0-15.5) Hematocrit 39.9% (36.0-47.0) Mean Corpuscular Volume 97fL (79-100) Mean Corpuscular Hemoglobin 33pg (25-35) Mean Corpuscular Hemoglobin Concent 34g/dL (31-37) Red Cell Distribution Width 13.1% (11.5-14.5) Platelet Count 168x10^3/uL (140-400) Neutrophils (%) (Auto) 78% (31-73) Lymphocytes (%) (Auto) 10% (24-48) Monocytes (%) (Auto) 12% (0-9) Eosinophils (%) (Auto) 0% (0-3) Basophils (%) (Auto) 0% (0-3) Neutrophils # (Auto) 5.4x10^3uL (1.8-7.7) Lymphocytes # (Auto) 0.7x10^3/uL (1.0-4.8) Monocytes # (Auto) 0.8x10^3/uL (0.0-1.1) Eosinophils # (Auto) 0.0x10^3/uL (0.0-0.7) Basophils # (Auto) 0.0x10^3/uL (0.0-0.2) Prothrombin Time 13.2SEC (11.7-14.0) Prothromb Time International Ratio 1.1 (0.8-1.1) Sodium Level 140mmol/L (136-145) Potassium Level 4.0mmol/L (3.5-5.1) Chloride Level 99mmol/L (98-107) Carbon Dioxide Level 40mmol/L (21-32) Anion Gap 1 (6-14) Blood Urea Nitrogen 19mg/dL (7-20) Creatinine 0.9mg/dL (0.6-1.0) Estimated GFR (Cockcroft-Gault) 63.2 Glucose Level 113mg/dL (70-99) Calcium Level 9.8mg/dL (8.5-10.1) Magnesium Level 2.2mg/dL (1.8-2.4) Total Bilirubin 0.7mg/dL (0.2-1.0) Direct Bilirubin 0.2mg/dL (0.0-0.2) Aspartate Amino Transf (AST/SGOT) 14U/L (15-37) Alanine Aminotransferase (ALT/SGPT) 15U/L (14-59) Alkaline Phosphatase 55U/L (46-116) Creatine Kinase 33U/L (26-192) Creatine Kinase MB (Mass) 1.1ng/mL (0.0-3.6) Creatine Kinase MB Relative Index % (0-4) Troponin I Quantitative < 0.017ng/mL (0.000-0.055) QI-Uzh-D-Type Natriuretic Peptide 211pg/mL (0-124) Total Protein 7.8g/dL (6.4-8.2) Albumin 3.5g/dL (3.4-5.0) Lipase 100U/L (73-393) Thyroid Stimulating Hormone (TSH) 0.458uIU/mL (0.358-3.74) Urine Collection Type Void Urine Color [place]ack[place] Urine Clarity Cloudy Urine pH 5.5 Urine Specific [place] 1.025 Urine Protein 100mg/dL (NEG-TRACE) Urine Glucose (UA) Negativemg/dL (NEG) Urine Ketones (Stick) Tracemg/dL (NEG) Urine Blood Small (NEG) Urine Nitrite Negative (NEG) Urine Bilirubin Moderate (NEG) Urine Urobilinogen Dipstick 1.0mg/dL (0.2 mg/dL) Urine Leukocyte Esterase Large (NEG) Urine RBC Occ/HPF (0-2) Urine WBC 5-10/HPF (0-4) Urine Squamous Epithelial Cells Few/LPF Urine Bacteria Moderate/HPF (0-FEW) Urine Hyaline Casts Moderate/HPF Urine Mucus Slight/LPF O2 Saturation 94% (92-99) 91% (92-99) Arterial Blood pH 7.18 (7.35-7.45) 7.23 (7.35-7.45) Arterial Blood pCO2 at Patient Temp 126mmHg (35-46) 86mmHg (35-46) Arterial Blood pO2 at Patient Temp 82mmHg (65-108) 70mmHg (65-108) Arterial Blood HCO3 46mmol/L (21-28) 35mmol/L (21-28) Arterial Blood Base Excess 12mmol/L (-3-3) 4mmol/L (-3-3) FiO2 40.0 45.0 Test 02/12/17 19:30 02/12/17 19:49 02/12/17 23:06 02/13/17 02:20 Troponin I Quantitative < 0.017ng/mL (0.000-0.055) < 0.017ng/mL (0.000-0.055) O2 Saturation 99% (92-99) 92% (92-99) Arterial Blood pH 7.20 (7.35-7.45) 7.22 (7.35-7.45) Arterial Blood pCO2 at Patient Temp 116mmHg (35-46) 101mmHg (35-46) Arterial Blood pO2 at Patient Temp 191mmHg (65-108) 68mmHg (65-108) Arterial Blood HCO3 44mmol/L (21-28) 41mmol/L (21-28) Arterial Blood Base Excess 11mmol/L (-3-3) 9mmol/L (-3-3) FiO2 80 45 Arterial Blood pH (Temp corrected) 7.23 Arterial Blood pCO2 (Temp correct) 100mmHg Arterial Blood pO2 (Temp corrected) 66mmHg White Blood Count 5.2x10^3/uL (4.0-11.0) Red Blood Count 3.83x10^6/uL (3.50-5.40) Hemoglobin 12.4g/dL (12.0-15.5) Hematocrit 37.8% (36.0-47.0) Mean Corpuscular Volume 99fL (79-100) Mean Corpuscular Hemoglobin 32pg (25-35) Mean Corpuscular Hemoglobin Concent 33g/dL (31-37) Red Cell Distribution Width 13.1% (11.5-14.5) Platelet Count 165x10^3/uL (140-400) Neutrophils (%) (Auto) 84% (31-73) Lymphocytes (%) (Auto) 11% (24-48) Monocytes (%) (Auto) 4% (0-9) Eosinophils (%) (Auto) 0% (0-3) Basophils (%) (Auto) 0% (0-3) Neutrophils # (Auto) 4.4x10^3uL (1.8-7.7) Lymphocytes # (Auto) 0.6x10^3/uL (1.0-4.8) Monocytes # (Auto) 0.2x10^3/uL (0.0-1.1) Eosinophils # (Auto) 0.0x10^3/uL (0.0-0.7) Basophils # (Auto) 0.0x10^3/uL (0.0-0.2) Sodium Level 141mmol/L (136-145) Potassium Level 4.3mmol/L (3.5-5.1) Chloride Level 97mmol/L (98-107) Carbon Dioxide Level 38mmol/L (21-32) Anion Gap 6 (6-14) Blood Urea Nitrogen 25mg/dL (7-20) Creatinine 0.9mg/dL (0.6-1.0) Estimated GFR (Cockcroft-Gault) 63.2 Glucose Level 151mg/dL (70-99) Calcium Level 9.9mg/dL (8.5-10.1) Test 02/13/17 07:15 02/13/17 10:00 02/13/17 13:30 O2 Saturation 88% (92-99) 97% (92-99) 93% (92-99) Arterial Blood pH 7.27 (7.35-7.45) 7.31 (7.35-7.45) 7.39 (7.35-7.45) Arterial Blood pCO2 at Patient Temp 78mmHg (35-46) 87mmHg (35-46) 68mmHg (35-46) Arterial Blood pO2 at Patient Temp 55mmHg (65-108) 95mmHg (65-108) 65mmHg (65-108) Arterial Blood HCO3 35mmol/L (21-28) 42mmol/L (21-28) 41mmol/L (21-28) Arterial Blood Base Excess 6mmol/L (-3-3) 12mmol/L (-3-3) 13mmol/L (-3-3) FiO2 45 50 40 Laboratory Tests Test 02/13/17 10:00 02/13/17 13:30 O2 Saturation 97% (92-99) 93% (92-99) Arterial Blood pH 7.31 (7.35-7.45) 7.39 (7.35-7.45) Arterial Blood pCO2 at Patient Temp 87mmHg (35-46) 68mmHg (35-46) Arterial Blood pO2 at Patient Temp 95mmHg (65-108) 65mmHg (65-108) Arterial Blood HCO3 42mmol/L (21-28) 41mmol/L (21-28) Arterial Blood Base Excess 12mmol/L (-3-3) 13mmol/L (-3-3) FiO2 50 40 Medications Active Scripts Medications Dose Route/Sig Days Date Category Doxycycline Monohydrate 500 Gm Powder 100 Gm MC BID 02/12/17 Reported Klor-Con M20 (Potassium Chloride) 20 Meq Tab.er.prt 20 Meq PO DAILY 05/23/16 Rx Duoneb 0.5-3(2.5) Mg/3 Ml (Albuterol/Ipratropium) 3 Ml Ampul.neb 3 Ml NEB PRN QID PRN 05/23/16 Rx Furosemide 40 Mg Tablet 40 Mg PO DAILY 05/23/16 Rx Comments cxr reviewed, Cardiomegaly with borderline vascular congestion. Impression . IMPRESSION: 1. Acute on chronic hypercapnic respiratory failure secondary to chronic obstructive pulmonary disease exacerbation and possible acute cor pulmonale. mild congestive heart failure. 2. Long history of tobaccoism, suspect underlying chronic obstructive pulmonary disease with chronic hypercarbia. 3. Abnormal chest x-ray with mild vascular congestion and cardiomegaly, needs an echo to rule out right and left heart dysfunction. Plan . RECOMMENDATIONS: 1. 02 titration, bipap prn 2. Smoking cessation counseling provided. 3. increase activity 4. Mild diuresis. 5. Continue antibiotics. She probably has acute bronchitis. 6. IV steroids to prednisone 7. Nebulizer treatment. 8. pepcid, lovenox for prophylaxis discussed with the patient and smoking cessation counseling provided. THONG MEDINA MD Feb 14, 2017 09:57
[2017-02-14 10:37] LABS: BLOOD UREA NITROGEN 30 mg/dL (7-20); CHLORIDE 94 mmol/L (98-107); CREATININE 0.9 mg/dL (0.6-1.0); GFR 63.2; GLUCOSE 158 mg/dL (70-99); MAGNESIUM 2.2 mg/dL (1.8-2.4); POTASSIUM 4.2 mmol/L (3.5-5.1); SODIUM 139 mmol/L (136-145)
[2017-02-14 10:38] LABS: ANION GAP 0 (6-14); CARBON DIOXIDE > 45 mmol/L (21-32)
--- NOTE | 2017-02-14 10:48 | PDOC ---
PROGRESS NOTES Chief Complaint Chief Complaint 1. acute on chronic resp failure with hypoxia and hypercapnia 2. COPD , emphysema 3. bronchitis 4. mild chronic diastolic CHF 5. htn uncontrolled 6. tobaccoism 7.obesity 8. anxiety 9. uti History of Present Illness History of Present Illness Off BIPAP Doing better today Rejects PT - ambulating fine EARLIER ENTRY CXR I have personally reviewed: IMPRESSION: Cardiomegaly with borderline vascular congestion. PLAn: transition to PO levaquin Planned for home willie Vitals Vitals Vital Signs Date Time Temp Pulse Resp B/P Pulse Ox O2 Delivery O2 Flow Rate FiO2 02/14/17 08:20 Venturi Mask 02/14/17 08:16 98.6 96 22 147/80 88 4.0 98.6 Physical Exam General: Alert, Oriented X3, Cooperative, mild distress Heart: Regular rate (SR), Other (unable to appreciate fully her heart sounds due to bipap) Lungs: Crackles, Other (dec BS) Abdomen: Soft, No tenderness Extremities: No cyanosis, No edema Skin: No breakdown, No significant lesion Labs LABS Laboratory Tests Test 02/13/17 13:30 02/14/17 10:10 O2 Saturation 93% (92-99) Arterial Blood pH 7.39 (7.35-7.45) Arterial Blood pCO2 at Patient Temp 68mmHg (35-46) Arterial Blood pO2 at Patient Temp 65mmHg (65-108) Arterial Blood HCO3 41mmol/L (21-28) Arterial Blood Base Excess 13mmol/L (-3-3) FiO2 40 Sodium Level 139mmol/L (136-145) Potassium Level 4.2mmol/L (3.5-5.1) Chloride Level 94mmol/L (98-107) Carbon Dioxide Level > 45mmol/L (21-32) Anion Gap 0 (6-14) Blood Urea Nitrogen 30mg/dL (7-20) Creatinine 0.9mg/dL (0.6-1.0) Estimated GFR (Cockcroft-Gault) 63.2 Glucose Level 158mg/dL (70-99) Calcium Level 10.0mg/dL (8.5-10.1) Magnesium Level 2.2mg/dL (1.8-2.4) Review of Systems Review of Systems no soa, no CP, no fevers, no emesis, nausea Assessment and Plan Assessmemt and Plan Problems Medical Problems: (1) COPD (chronic obstructive pulmonary disease) Status: Acute Problems: Comment Review of Relevant I have reviewed the following items natasha (where applicable) has been applied. Labs Laboratory Tests Test 02/12/17 12:25 02/12/17 12:40 02/12/17 13:45 02/12/17 16:15 White Blood Count 6.9x10^3/uL (4.0-11.0) Red Blood Count 4.10x10^6/uL (3.50-5.40) Hemoglobin 13.4g/dL (12.0-15.5) Hematocrit 39.9% (36.0-47.0) Mean Corpuscular Volume 97fL (79-100) Mean Corpuscular Hemoglobin 33pg (25-35) Mean Corpuscular Hemoglobin Concent 34g/dL (31-37) Red Cell Distribution Width 13.1% (11.5-14.5) Platelet Count 168x10^3/uL (140-400) Neutrophils (%) (Auto) 78% (31-73) Lymphocytes (%) (Auto) 10% (24-48) Monocytes (%) (Auto) 12% (0-9) Eosinophils (%) (Auto) 0% (0-3) Basophils (%) (Auto) 0% (0-3) Neutrophils # (Auto) 5.4x10^3uL (1.8-7.7) Lymphocytes # (Auto) 0.7x10^3/uL (1.0-4.8) Monocytes # (Auto) 0.8x10^3/uL (0.0-1.1) Eosinophils # (Auto) 0.0x10^3/uL (0.0-0.7) Basophils # (Auto) 0.0x10^3/uL (0.0-0.2) Prothrombin Time 13.2SEC (11.7-14.0) Prothromb Time International Ratio 1.1 (0.8-1.1) Sodium Level 140mmol/L (136-145) Potassium Level 4.0mmol/L (3.5-5.1) Chloride Level 99mmol/L (98-107) Carbon Dioxide Level 40mmol/L (21-32) Anion Gap 1 (6-14) Blood Urea Nitrogen 19mg/dL (7-20) Creatinine 0.9mg/dL (0.6-1.0) Estimated GFR (Cockcroft-Gault) 63.2 Glucose Level 113mg/dL (70-99) Calcium Level 9.8mg/dL (8.5-10.1) Magnesium Level 2.2mg/dL (1.8-2.4) Total Bilirubin 0.7mg/dL (0.2-1.0) Direct Bilirubin 0.2mg/dL (0.0-0.2) Aspartate Amino Transf (AST/SGOT) 14U/L (15-37) Alanine Aminotransferase (ALT/SGPT) 15U/L (14-59) Alkaline Phosphatase 55U/L (46-116) Creatine Kinase 33U/L (26-192) Creatine Kinase MB (Mass) 1.1ng/mL (0.0-3.6) Creatine Kinase MB Relative Index % (0-4) Troponin I Quantitative < 0.017ng/mL (0.000-0.055) HW-Adc-C-Type Natriuretic Peptide 211pg/mL (0-124) Total Protein 7.8g/dL (6.4-8.2) Albumin 3.5g/dL (3.4-5.0) Lipase 100U/L (73-393) Thyroid Stimulating Hormone (TSH) 0.458uIU/mL (0.358-3.74) Urine Collection Type Void Urine Color [place] Urine Clarity Cloudy Urine pH 5.5 Urine Specific [place] 1.025 Urine Protein 100mg/dL (NEG-TRACE) Urine Glucose (UA) Negativemg/dL (NEG) Urine Ketones (Stick) Tracemg/dL (NEG) Urine Blood Small (NEG) Urine Nitrite Negative (NEG) Urine Bilirubin Moderate (NEG) Urine Urobilinogen Dipstick 1.0mg/dL (0.2 mg/dL) Urine Leukocyte Esterase Large (NEG) Urine RBC Occ/HPF (0-2) Urine WBC 5-10/HPF (0-4) Urine Squamous Epithelial Cells Few/LPF Urine Bacteria Moderate/HPF (0-FEW) Urine Hyaline Casts Moderate/HPF Urine Mucus Slight/LPF O2 Saturation 94% (92-99) 91% (92-99) Arterial Blood pH 7.18 (7.35-7.45) 7.23 (7.35-7.45) Arterial Blood pCO2 at Patient Temp 126mmHg (35-46) 86mmHg (35-46) Arterial Blood pO2 at Patient Temp 82mmHg (65-108) 70mmHg (65-108) Arterial Blood HCO3 46mmol/L (21-28) 35mmol/L (21-28) Arterial Blood Base Excess 12mmol/L (-3-3) 4mmol/L (-3-3) FiO2 40.0 45.0 Test 02/12/17 19:30 02/12/17 19:49 02/12/17 23:06 02/13/17 02:20 Troponin I Quantitative < 0.017ng/mL (0.000-0.055) < 0.017ng/mL (0.000-0.055) O2 Saturation 99% (92-99) 92% (92-99) Arterial Blood pH 7.20 (7.35-7.45) 7.22 (7.35-7.45) Arterial Blood pCO2 at Patient Temp 116mmHg (35-46) 101mmHg (35-46) Arterial Blood pO2 at Patient Temp 191mmHg (65-108) 68mmHg (65-108) Arterial Blood HCO3 44mmol/L (21-28) 41mmol/L (21-28) Arterial Blood Base Excess 11mmol/L (-3-3) 9mmol/L (-3-3) FiO2 80 45 Arterial Blood pH (Temp corrected) 7.23 Arterial Blood pCO2 (Temp correct) 100mmHg Arterial Blood pO2 (Temp corrected) 66mmHg White Blood Count 5.2x10^3/uL (4.0-11.0) Red Blood Count 3.83x10^6/uL (3.50-5.40) Hemoglobin 12.4g/dL (12.0-15.5) Hematocrit 37.8% (36.0-47.0) Mean Corpuscular Volume 99fL (79-100) Mean Corpuscular Hemoglobin 32pg (25-35) Mean Corpuscular Hemoglobin Concent 33g/dL (31-37) Red Cell Distribution Width 13.1% (11.5-14.5) Platelet Count 165x10^3/uL (140-400) Neutrophils (%) (Auto) 84% (31-73) Lymphocytes (%) (Auto) 11% (24-48) Monocytes (%) (Auto) 4% (0-9) Eosinophils (%) (Auto) 0% (0-3) Basophils (%) (Auto) 0% (0-3) Neutrophils # (Auto) 4.4x10^3uL (1.8-7.7) Lymphocytes # (Auto) 0.6x10^3/uL (1.0-4.8) Monocytes # (Auto) 0.2x10^3/uL (0.0-1.1) Eosinophils # (Auto) 0.0x10^3/uL (0.0-0.7) Basophils # (Auto) 0.0x10^3/uL (0.0-0.2) Sodium Level 141mmol/L (136-145) Potassium Level 4.3mmol/L (3.5-5.1) Chloride Level 97mmol/L (98-107) Carbon Dioxide Level 38mmol/L (21-32) Anion Gap 6 (6-14) Blood Urea Nitrogen 25mg/dL (7-20) Creatinine 0.9mg/dL (0.6-1.0) Estimated GFR (Cockcroft-Gault) 63.2 Glucose Level 151mg/dL (70-99) Calcium Level 9.9mg/dL (8.5-10.1) Test 02/13/17 07:15 02/13/17 10:00 02/13/17 13:30 02/14/17 10:10 O2 Saturation 88% (92-99) 97% (92-99) 93% (92-99) Arterial Blood pH 7.27 (7.35-7.45) 7.31 (7.35-7.45) 7.39 (7.35-7.45) Arterial Blood pCO2 at Patient Temp 78mmHg (35-46) 87mmHg (35-46) 68mmHg (35-46) Arterial Blood pO2 at Patient Temp 55mmHg (65-108) 95mmHg (65-108) 65mmHg (65-108) Arterial Blood HCO3 35mmol/L (21-28) 42mmol/L (21-28) 41mmol/L (21-28) Arterial Blood Base Excess 6mmol/L (-3-3) 12mmol/L (-3-3) 13mmol/L (-3-3) FiO2 45 50 40 Sodium Level 139mmol/L (136-145) Potassium Level 4.2mmol/L (3.5-5.1) Chloride Level 94mmol/L (98-107) Carbon Dioxide Level > 45mmol/L (21-32) Anion Gap 0 (6-14) Blood Urea Nitrogen 30mg/dL (7-20) Creatinine 0.9mg/dL (0.6-1.0) Estimated GFR (Cockcroft-Gault) 63.2 Glucose Level 158mg/dL (70-99) Calcium Level 10.0mg/dL (8.5-10.1) Magnesium Level 2.2mg/dL (1.8-2.4) Laboratory Tests Test 02/13/17 13:30 02/14/17 10:10 O2 Saturation 93% (92-99) Arterial Blood pH 7.39 (7.35-7.45) Arterial Blood pCO2 at Patient Temp 68mmHg (35-46) Arterial Blood pO2 at Patient Temp 65mmHg (65-108) Arterial Blood HCO3 41mmol/L (21-28) Arterial Blood Base Excess 13mmol/L (-3-3) FiO2 40 Sodium Level 139mmol/L (136-145) Potassium Level 4.2mmol/L (3.5-5.1) Chloride Level 94mmol/L (98-107) Carbon Dioxide Level > 45mmol/L (21-32) Anion Gap 0 (6-14) Blood Urea Nitrogen 30mg/dL (7-20) Creatinine 0.9mg/dL (0.6-1.0) Estimated GFR (Cockcroft-Gault) 63.2 Glucose Level 158mg/dL (70-99) Calcium Level 10.0mg/dL (8.5-10.1) Magnesium Level 2.2mg/dL (1.8-2.4) Microbiology 02/12/17 Gram Stain - Final, Complete 02/12/17 Urine Culture - Preliminary, Resulted 02/12/17 Urine Culture Result 1 (SINCERE) - Preliminary, Resulted Medications Current Medications Albuterol/ Ipratropium (Duoneb) 3 ml 1X ONCE NEB Last administered on 13:43; Start 02/12/17 at 13:15; Stop 02/12/17 at 13:16; Status DC Methylprednisolone Sodium Succinate 125 mg 125 mg 1X ONCE IV Last administered on 02/12/17 15:01; Start 02/12/17 at 13:45; Stop 02/12/17 at 13:46 ; Status DC Azithromycin (Zithromax 500mg Ivpb For Omni) 250 ml @ 250 mls/hr 1X ONCE IV Last administered on 02/12/17 15:02; Start 02/12/17 at 13:45; Stop 02/12/17 at 14:44; Status DC Furosemide (Lasix) 40 mg DAILY PO Last administered on 02/14/17 08:10; Start 02/12/17 at 15:00 Potassium Chloride 20 meq 20 meq DAILY PO Last administered on 02/14/17 08:11 ; Start 02/12/17 at 15:00 Levofloxacin/ Dextrose (LEVAQUIN 500mg PREMIX) 100 ml @ 100 mls/hr Q24H IV ; Start 02/12/17 at 15:00; Status Cancel Albuterol/ Ipratropium (Duoneb) 3 ml RTQID NEB Last administered on 02/14/17 07:40; Start 02/12/17 at 16:00 Albuterol Sulfate (Ventolin Neb Soln) 2.5 mg PRN Q2HR PRN NEB SHORTNESS OF BREATH Last administered on 02/14/17 05:10; Start 02/12/17 at 14:15 Methylprednisolone Sodium Succinate (Solu-Medrol 40mg Vial) 40 mg BID IV Last administered on 02/14/17 08:11; Start 02/12/17 at 21:00; Stop 02/14/17 at 10:00 ; Status DC Famotidine (Pepcid) 20 mg DAILY PO Last administered on 02/14/17 08:10; Start 02/12/17 at 15:00 Enoxaparin Sodium (Lovenox 40mg Syringe) 40 mg Q24H SQ Last administered on 15:19; Start 02/12/17 at 15:00 Guaifenesin 600 mg 600 mg BID PO Last administered on 02/14/17 08:11; Start at 21:00 Levofloxacin/ Dextrose (LEVAQUIN 500mg PREMIX) 100 ml @ 100 mls/hr 1X ONCE IV ; Start 02/12/17 at 14:30; Stop 02/12/17 at 15:29; Status DC Hydralazine HCl (Apresoline) 10 mg PRN Q4HRS PRN IVP ELEVATED BP, SEE COMMENTS ; Start 02/12/17 at 14:30 Alprazolam 0.25 mg 0.25 mg 1X ONCE PO Last administered on 02/13/17 01:28; Start 02/13/17 at 01:30; Stop 02/13/17 at 01:31; Status DC Levofloxacin/ Dextrose (LEVAQUIN 500mg PREMIX) 100 ml @ 100 mls/hr Q24H IV Last administered on 02/13/17 11:24; Start 02/13/17 at 11:00 Furosemide (Lasix) 40 mg 1X ONCE IVP ; Start 02/13/17 at 12:00; Stop 02/13/17 at 12:00; Status DC Furosemide (Lasix) 20 mg 1X ONCE IVP Last administered on 02/13/17 11:57; Start 02/13/17 at 12:30; Stop 02/13/17 at 12:31; Status DC Alprazolam (Xanax) 0.25 mg PRN Q8HRS PRN PO ANXIETY / AGITATION Last administered on 02/13/17 20:48; Start 02/13/17 at 20:00 Nicotine (Nicoderm Cq 21mg) 1 patch PRN DAILY PRN TD SMOKING CESSATION; Start 02/14/17 at 07:30 Prednisone (Prednisone) 40 mg DAILY PO ; Start 02/15/17 at 09:00 Active Scripts Active Klor-Con M20 (Potassium Chloride) 20 Meq Tab.er.prt 20 Meq PO DAILY Duoneb 0.5-3(2.5) Mg/3 Ml (Albuterol/Ipratropium) 3 Ml Ampul.neb 3 Ml NEB PRN QID PRN Furosemide 40 Mg Tablet 40 Mg PO DAILY Reported Doxycycline Monohydrate 500 Gm Powder 100 Gm MC BID Vitals/I & O Vital Sign - Last 24 Hours 02/13/17 02/13/17 02/13/17 3/23/17 11:00 11:19 13:20 15:00 Temp 98.2 98.1 98.2 98.1 Pulse 70 94 Resp 22 18 B/P 138/75 124/69 Pulse Ox 90 92 93 92 O2 Delivery BiPAP/CPAP BiPAP/CPAP BiPAP/CPAP Nasal Cannula O2 Flow Rate 3.0 02/13/17 02/13/17 02/13/17 02/13/17 15:20 19:05 20:00 20:03 Temp 98.0 98.0 Pulse 88 Resp 24 B/P 112/55 Pulse Ox 93 95 95 O2 Delivery Nasal Cannula Venturi Mask Bi-pap Venturi Mask O2 Flow Rate 3.0 4.0 12.0 02/13/17 02/13/17 02/14/17 02/14/17 22:06 23:30 03:30 05:10 Temp 98.3 97.9 98.3 97.9 Pulse 75 85 Resp 20 20 B/P 106/34 110/63 Pulse Ox 93 93 96 O2 Delivery Bi-pap Venturi Mask Venturi Mask Venturi Mask O2 Flow Rate 12.0 4.0 4.0 12.0 02/14/17 02/14/17 02/14/17 02/14/17 07:00 07:40 08:16 08:20 Temp 98.6 98.6 Pulse 96 Resp 22 B/P 147/80 Pulse Ox 86 88 O2 Delivery Venturi Mask Venturi Mask Venturi Mask Venturi Mask O2 Flow Rate 4.0 12.0 4.0 Intake and Output 02/13/17 02/13/17 02/14/17 15:00 23:00 07:00 Intake Total 105 ml 0 ml 300 ml Output Total 250 ml 1300 ml Balance -145 ml 0 ml -1000 ml RYAN METZGER MD Feb 14, 2017 10:48
[2017-02-14 11:00] VITALS: BP 102/66
[2017-02-14] MEDS: LEVOFLOXACIN 500 MG TABLET PO SCH (11:31)
[2017-02-14] MEDS ORDERED: ACETAMINOPHEN 500 MG TABLET PO PRN (14:45)
[2017-02-14] MEDS: ALPRAZOLAM 0.25 MG TABLET PO PRN ×2 (14:48→19:57)
[2017-02-14 15:27] VITALS: BP 105/57
[2017-02-14] MEDS: ENOXAPARIN 40 MG/0.4 ML DISP.SYRIN. SQ SCH (15:32)
[2017-02-14 19:45] VITALS: BP 125/64
[2017-02-14 23:12] VITALS: BP 117/59
[2017-02-15 03:35] VITALS: BP 152/72
[2017-02-15] MEDS: ALBUTEROL SULFATE 2.5 MG/3 ML NEBU. NEB PRN (03:40)
[2017-02-15] MEDS: LEVOFLOXACIN 500 MG TABLET PO SCH (06:25)
[2017-02-15 07:21] VITALS: BP 108/58
--- NOTE | 2017-02-15 07:23 | PDOC ---
PULMONARY PROGRESS NOTES Subjective didnt use bipap, has sob, cough, better, has slight back pain. no runny nose. Vitals Vital Signs Date Time Temp Pulse Resp B/P Pulse Ox O2 Delivery O2 Flow Rate FiO2 02/15/17 03:39 90 Nasal Cannula 5.0 02/15/17 03:35 97.9 103 22 152/72 97.9 Comments ros as mentioned as above other sys otherwise neg ROS: No Nausea, No Chest Pain, No Abdominal Pain, No Increase Cough General: Alert, Oriented X4 HEENT: Other (nc at perrl, nose, throat clear) Lungs: Crackles, Other (dec BS) Cardiovascular: S1, S2 Abdomen: Soft, Non-tender, Other Neuro Exam: Alert, Oriented Extremities: No Edema Skin: Warm Labs Laboratory Tests Test 02/13/17 10:00 02/13/17 13:30 02/14/17 10:10 O2 Saturation 97% (92-99) 93% (92-99) Arterial Blood pH 7.31 (7.35-7.45) 7.39 (7.35-7.45) Arterial Blood pCO2 at Patient Temp 87mmHg (35-46) 68mmHg (35-46) Arterial Blood pO2 at Patient Temp 95mmHg (65-108) 65mmHg (65-108) Arterial Blood HCO3 42mmol/L (21-28) 41mmol/L (21-28) Arterial Blood Base Excess 12mmol/L (-3-3) 13mmol/L (-3-3) FiO2 50 40 Sodium Level 139mmol/L (136-145) Potassium Level 4.2mmol/L (3.5-5.1) Chloride Level 94mmol/L (98-107) Carbon Dioxide Level > 45mmol/L (21-32) Anion Gap 0 (6-14) Blood Urea Nitrogen 30mg/dL (7-20) Creatinine 0.9mg/dL (0.6-1.0) Estimated GFR (Cockcroft-Gault) 63.2 Glucose Level 158mg/dL (70-99) Calcium Level 10.0mg/dL (8.5-10.1) Magnesium Level 2.2mg/dL (1.8-2.4) Laboratory Tests Test 02/14/17 10:10 Sodium Level 139mmol/L (136-145) Potassium Level 4.2mmol/L (3.5-5.1) Chloride Level 94mmol/L (98-107) Carbon Dioxide Level > 45mmol/L (21-32) Anion Gap 0 (6-14) Blood Urea Nitrogen 30mg/dL (7-20) Creatinine 0.9mg/dL (0.6-1.0) Estimated GFR (Cockcroft-Gault) 63.2 Glucose Level 158mg/dL (70-99) Calcium Level 10.0mg/dL (8.5-10.1) Magnesium Level 2.2mg/dL (1.8-2.4) Medications Active Scripts Medications Dose Route/Sig Days Date Category Doxycycline Monohydrate 500 Gm Powder 100 Gm MC BID 02/12/17 Reported Klor-Con M20 (Potassium Chloride) 20 Meq Tab.er.prt 20 Meq PO DAILY 05/23/16 Rx Duoneb 0.5-3(2.5) Mg/3 Ml (Albuterol/Ipratropium) 3 Ml Ampul.neb 3 Ml NEB PRN QID PRN 05/23/16 Rx Furosemide 40 Mg Tablet 40 Mg PO DAILY 05/23/16 Rx Comments cxr reviewed, Cardiomegaly with borderline vascular congestion. echo Left ventricle systolic function is normal. The Ejection Fraction is 60-65% . There is normal LV segmental wall motion. Tissue Doppler imaging reveals mild left ventricular diastolic dysfunction. Doppler and Color Flow revealed mild tricuspid regurgitation.There is moderate pulmonary hypertension. The PA pressure was estimated at 51 mmHg. Impression . IMPRESSION: 1. Acute on chronic hypercapnic respiratory failure secondary to chronic obstructive pulmonary disease exacerbation and possible acute cor pulmonale. mild acute diastolic congestive heart failure. 2. Long history of tobaccoism, suspect underlying chronic obstructive pulmonary disease with chronic hypercarbia. 3. Abnormal chest x-ray with mild vascular congestion and cardiomegaly, Plan . RECOMMENDATIONS: 1. 02 titration, 2. Smoking cessation counseling provided. 3. increase activity 4. Mild diuresis. 5. Continue antibiotics. She probably has acute bronchitis. 6. prednisone by taper by 10 mg q3d 7. Nebulizer treatment. 8. pepcid, lovenox for prophylaxis discussed with the patient and rn. ok to karlee from pulm standpoint THONG MEDINA MD Feb 15, 2017 07:23
[2017-02-15] MEDS: IPRATRPIUM/ALBUTEROL 0.5/2.5MG 3 ML NEBU. NEB SCH ×3 (07:51→15:36)
[2017-02-15] MEDS: FAMOTIDINE 20 MG TABLET. PO SCH (08:44)
[2017-02-15] MEDS: POTASSIUM CHLORIDE 20 MEQ TABLET.ER. PO SCH (08:44)
[2017-02-15] MEDS: FUROSEMIDE 40 MG TABLET PO SCH (08:44)
[2017-02-15] MEDS: GUAIFENESIN ER 600 MG TABLET.ER PO SCH (08:44)
[2017-02-15] MEDS ORDERED: PREDNISONE 20 MG TABLET PO SCH (09:00)
[2017-02-15] MEDS: ALPRAZOLAM 0.25 MG TABLET PO PRN (09:10)
[2017-02-15 10:59] VITALS: BP 119/66
[2017-02-15] MEDS ORDERED: LEVO500T38 PO (11:37)
--- NOTE | 2017-02-15 11:38 | PDOC3 ---
Discharge Summary Visit Information Date of Admission: Feb 12, 2017 Date of Discharge: Feb 15, 2017 Admitting Diagnosis Comment: 1. acute on chronic resp failure with hypoxia and hypercapnia 2. COPD , emphysema 3. bronchitis 4. mild chronic diastolic CHF 5. htn uncontrolled 6. tobaccoism 7.obesity 8. anxiety 9. uti Final Diagnosis Problems Medical Problems: (1) CHF exacerbation Status: Acute (2) COPD (chronic obstructive pulmonary disease) Status: Acute Brief Hospital Course Allergies Allergies Coded Allergies Type Severity Reaction Last Updated Verified No Known Drug Allergies 05/17/16 No Vital Signs Vital Signs Date Time Temp Pulse Resp B/P Pulse Ox O2 Delivery O2 Flow Rate FiO2 02/15/17 10:59 97.9 93 22 119/66 93 Nasal Cannula 3.0 97.9 Lab Results Laboratory Tests Test 02/13/17 13:30 02/14/17 10:10 O2 Saturation 93% (92-99) Arterial Blood pH 7.39 (7.35-7.45) Arterial Blood pCO2 at Patient Temp 68mmHg (35-46) Arterial Blood pO2 at Patient Temp 65mmHg (65-108) Arterial Blood HCO3 41mmol/L (21-28) Arterial Blood Base Excess 13mmol/L (-3-3) FiO2 40 Sodium Level 139mmol/L (136-145) Potassium Level 4.2mmol/L (3.5-5.1) Chloride Level 94mmol/L (98-107) Carbon Dioxide Level > 45mmol/L (21-32) Anion Gap 0 (6-14) Blood Urea Nitrogen 30mg/dL (7-20) Creatinine 0.9mg/dL (0.6-1.0) Estimated GFR (Cockcroft-Gault) 63.2 Glucose Level 158mg/dL (70-99) Calcium Level 10.0mg/dL (8.5-10.1) Magnesium Level 2.2mg/dL (1.8-2.4) Brief Hospital Course Ms. Cook is a 61 old CAucasianfemale admitted for mild CHF exacerbation and incidental UTI. SOme drowsiness with 0.25 xanax. ALreday on lasix 40 at home with KCl supplements. CO managed with pulmo (needed BIPAP) and cards. Cleared from both services to dc home. No pT needs RX for levaquin and lasix given Pt seen and examined Dw RN Dc 31 mins > 50% education and counselling Discharge Information Condition at Discharge: Improved, Stable Disposition/Orders: D/C to Home Scheduled Doxycycline Monohydrate (Doxycycline Monohydrate) 100 GM MC BID (Reported) Furosemide (Furosemide) 40 MG PO DAILY Potassium Chloride (Klor-Con M20) 20 MEQ PO DAILY Scheduled PRN Ipratropium/Albuterol Sulfate (Duoneb 0.5-3(2.5) Mg/3 Ml) 3 ML NEB PRN QID PRN PRN Shortness of breath,wheezing RYAN METZGER MD Feb 15, 2017 11:38
[2017-02-15 14:36] VITALS: BP 132/56
== END 2017-02-15 16:37 | disposition home or self-care (01) | DRG 291 ==
LOC: ER 11:02 → 2 NORTH 12:50
PROVIDERS: ADMIT Internal Medicine; ATTEND Internal Medicine
PROC: 5A09357 Assistance with Respiratory Ventilation, Less than 24 Consecutive Hours, Continuous Positive Airway Pressure (ICD-10-PCS; principal; 2017-02-13)
DX: I11.0 Hypertensive heart disease with heart failure (principal); J96.21 Acute and chronic respiratory failure with hypoxia; J96.22 Acute and chronic respiratory failure with hypercapnia; N39.0 Urinary tract infection, site not specified; J44.1 Chronic obstructive pulmonary disease with (acute) exacerbation; I50.33 Acute on chronic diastolic (congestive) heart failure; I27.2 Other secondary pulmonary hypertension; E66.9 Obesity, unspecified; F17.210 Nicotine dependence, cigarettes, uncomplicated; F41.9 Anxiety disorder, unspecified; Z96.649 Presence of unspecified artificial hip joint; M19.90 Unspecified osteoarthritis, unspecified site; Z83.3 Family history of diabetes mellitus; Z99.81 Dependence on supplemental oxygen; Z98.51 Tubal ligation status; Z68.28 Body mass index [BMI] 28.0-28.9, adult
CPT/HCPCS: 36415; 36600; 71010; 80048; 80076; 81001; 82553; 82805; 83690; 83735; 83880; 84443; 84484; 85027; 85610; 87070; 87086; 87186; 87205; 93005; 93306; 94250; 94640; 94660; 94760; 96374; 96375; 99406; J0456; J1650; J1956; J2920; J2930; J7512; J7620; 99285-25

== ENCOUNTER 2018-01-24 12:54 | Inpatient (IN) | payer BC ==
[2018-01-24] MEDS ORDERED: NALOXONE 0.4 MG/ML VIAL. (13:05)
[2018-01-24] MEDS: NALOXONE 0.4 MG/ML VIAL. IV ×2 (13:07→13:15)
[2018-01-24 13:13] LABS: ADD MAN DIFF? NO
[2018-01-24 13:16] LABS: BASO % 0 % (0-3); EOS % 0 % (0-3); HEMATOCRIT 39.4 % (36.0-47.0); LYMPH # 1.2 x10^3/uL (1.0-4.8); LYMPH % 19 % (24-48); MEAN CORPUSCULAR HEMOGLOBIN 31 pg (25-35); MEAN CORPUSCULAR HGB CONC 33 g/dL (31-37); MEAN CORPUSCULAR VOLUME 95 fL (79-100); MONO # 0.4 x10^3/uL (0.0-1.1); MONO % 7 % (0-9); NEUT # 4.7 x10^3uL (1.8-7.7); NEUT % 74 % (31-73); PLATELET COUNT 128 x10^3/uL (140-400); RED BLOOD COUNT 4.14 x10^6/uL (3.50-5.40); WHITE BLOOD COUNT 6.3 x10^3/uL (4.0-11.0)
[2018-01-24] MEDS: NALOXONE 2 MG/2 ML DISP.SYRIN. IV (13:22)
[2018-01-24 13:26] LABS: BASE EXCESS COOX 14 mmol/L (-3-3); BLOOD UREA NITROGEN 17 mg/dL (7-20); BUN/CREATININE RATIO 28 (6-20); CALCIUM 9.3 mg/dL (8.5-10.1); CARBON MONOXIDE 0.7 % (0.0-1.9); CHLORIDE 99 mmol/L (98-107); CREATININE 0.6 mg/dL (0.6-1.0); GFR 100.6; GLUCOSE 133 mg/dL (70-99); HCO3 COOX 52 mmol/L (21-28); METHEMOGLOBIN 0.6 % (0.0-1.9); OXYHEMOGLOBIN 97.9 %; PO2 COOX 377 mmHg (65-108); POTASSIUM 4.8 mmol/L (3.5-5.1); SAT O2 COOX 99 % (92-99); SODIUM 141 mmol/L (136-145); TOTAL HEMOGLOBIN 13.7 g/dL
[2018-01-24 13:28] LABS: AMMONIA 49 mcmol/L (11-34)
[2018-01-24 13:28] LABS: PARTIAL THROMBOPLASTIN TIME 25 SEC (24-38); PROTHROMBIN TIME PATIENT 12.5 SEC (11.7-14.0)
[2018-01-24 13:29] LABS: CARBON DIOXIDE > 45 mmol/L (21-32)
[2018-01-24 13:30] LABS: ACETAMIN < 2 mcg/ml (10-30); SALIC < 2.8 mg/dL (2.8-20.0)
[2018-01-24 13:32] LABS: ALBUMIN 3.8 g/dL (3.4-5.0); ALK PHOS 60 U/L (46-116); ALT (SGPT) 25 U/L (14-59); AST (SGOT) 20 U/L (15-37); TOTAL BILIRUBIN 0.4 mg/dL (0.2-1.0); TOTAL PROTEIN 7.5 g/dL (6.4-8.2)
[2018-01-24 13:34] LABS: TROPONINI < 0.017 ng/mL (0.000-0.055)
[2018-01-24] MEDS: KETAMINE HCL 500 MG/10 ML VIAL. IV (13:43)
[2018-01-24] MEDS: SUCCINYLCHOLINE 200 MG/10 ML VIAL. IV (13:48)
[2018-01-24] MEDS ORDERED: PROPOFOL 50 ML IV ×2 (13:48→15:08)
[2018-01-24] MEDS: ALBUTEROL SULFATE 2.5 MG/3 ML NEBU. NEB ×2 (14:00→21:22)
[2018-01-24] MEDS ORDERED: ALBUTEROL SULFATE 2.5 MG/3 ML NEBU. (14:03)
[2018-01-24] MEDS: MIDAZOLAM HCL/PF 5 MG/5 ML VIAL. IV (14:06)
[2018-01-24] MEDS: VECURONIUM BOLUS 10 MG VIAL. IV (14:07)
[2018-01-24] MEDS: IV NORMAL SALINE 1000ML BAG 1,000 ML IV ×3 (14:09→16:58)
[2018-01-24] MEDS: methylPREDNISolone SOD SUCC PF 125 MG/2 ML VIAL. IV (14:17)
[2018-01-24] MEDS: MAGNESIUM SULFATE 2GM 50 ML IV ×2 (14:22→14:27)
[2018-01-24 14:24] LABS: PH COOX 7.05 (7.35-7.45)
[2018-01-24 14:28] LABS: PCO2 COOX 193 mmHg (35-46)
[2018-01-24] MEDS ORDERED: MAGNESIUM SULFATE 2GM 50 ML IV (14:30)
[2018-01-24 14:31] LABS: BASE EXCESS ABG 14 mmol/L (-3-3); HCO3 ABG 48 mmol/L (21-28); PO2 ABG 171 mmHg (65-108); SAT O2 ABG 99 % (92-99)
[2018-01-24 14:32] LABS: PH ABG 7.17 (7.35-7.45)
[2018-01-24] MEDS ORDERED: VECURONIUM BOLUS 10 MG VIAL. IV ×2 (14:32→18:45)
[2018-01-24] MEDS ORDERED: ETOMIDATE 20 MG/10 ML VIAL. IV (14:32)
[2018-01-24 14:33] LABS: PCO2 ABG 134 mmHg (35-46)
[2018-01-24] MEDS ORDERED: MIDAZOLAM HCL/PF 5 MG/5 ML VIAL. (14:33)
[2018-01-24] MEDS ORDERED: SUCCINYLCHOLINE 200 MG/10 ML VIAL. (14:34)
[2018-01-24] MEDS ORDERED: KETAMINE HCL 500 MG/10 ML VIAL. (14:35)
[2018-01-24 14:40] LABS: MAGNESIUM 2.2 mg/dL (1.8-2.4)
[2018-01-24 14:59] LABS: BILIRUBIN,URINE NEGATIVE (NEG); COLOR,URINE YELLOW; GLUCOSE,URINE NEGATIVE (NEG); NITRITE,URINE NEGATIVE (NEG); PH,URINE 5.5; PROTEIN,URINE NEGATIVE (NEG-TRACE); UROBILINOGEN,URINE 0.2 mg/dL (0.2 mg/dL)
[2018-01-24 15:06] LABS: AMPHETAMINE/METHAMPHETAMINE NEG (NEG); BARBITURATES NEG (NEG); BENZODIAZEPINES POS (NEG); CANNABINOIDS NEG (NEG); COCAINE NEG (NEG); ETHANOL, URINE NEG (NEG); METHADONE NEG (NEG); OPIATES NEG (NEG); PHENCYCLIDINE NEG (NEG)
[2018-01-24 15:09] LABS: CLARITY,URINE CLEAR
[2018-01-24 15:10] LABS: BACTERIA,URINE 0 /HPF (0-FEW); HYALINE CASTS, URINE MODERATE /HPF; RBC,URINE 0 /HPF (0-2); WBC,URINE OCC /HPF (0-4)
[2018-01-24] MEDS ORDERED: IV NORMAL SALINE 1000ML BAG 1,000 ML IV (16:16)
[2018-01-24] MEDS ORDERED: 0.9 % SODIUM CHLORIDE 10 ML DISP.SYRIN. IV (16:30)
[2018-01-24] MEDS ORDERED: NALOXONE 0.4 MG/ML VIAL. IV (16:30)
[2018-01-24] MEDS ORDERED: NOREPINEPHRIN PREMIX 250 ML IV (16:30)
[2018-01-24] MEDS: MIDAZOLAM 100MG/100ML PREMIX 100 ML IV (16:59)
[2018-01-24 18:02] LABS: BASE EXCESS ABG 8 mmol/L (-3-3); HCO3 ABG 38 mmol/L (21-28); PH ABG 7.26 (7.35-7.45); PO2 ABG 54 mmHg (65-108); SAT O2 ABG 90 % (92-99)
[2018-01-24 18:27] LABS: PCO2 ABG 85 mmHg (35-46)
[2018-01-24] MEDS: CHLORHEXIDINE 0.12% 15 ML MOUTHWASH. MM (21:36)
[2018-01-24] MEDS: FAMOTIDINE 20 MG/2 ML VIAL IVP (21:36)
[2018-01-25] MEDS: ALBUTEROL SULFATE 2.5 MG/3 ML NEBU. NEB (04:17)
[2018-01-25] MEDS: MIDAZOLAM 100MG/100ML PREMIX 100 ML IV ×2 (06:07→21:44)
[2018-01-25] MEDS ORDERED: VANCOMYCIN 1 GM in IV DEXTROSE 5% 250 ML IV (06:45)
[2018-01-25] MEDS: PIPERACILLIN/TAZOBACTAM 3.375 GM in IV NORMAL SALINE 50ML 50 ML IV ×4 (08:07→23:50)
[2018-01-25 08:21] LABS: ADD MAN DIFF? NO
[2018-01-25 08:27] LABS: BASO % 0 % (0-3); EOS % 0 % (0-3); HEMOGLOBIN 11.9 g/dL (12.0-15.5); LYMPH # 1.4 x10^3/uL (1.0-4.8); LYMPH % 20 % (24-48); MEAN CORPUSCULAR HEMOGLOBIN 31 pg (25-35); MEAN CORPUSCULAR HGB CONC 33 g/dL (31-37); MEAN CORPUSCULAR VOLUME 94 fL (79-100); MONO # 0.9 x10^3/uL (0.0-1.1); MONO % 13 % (0-9); NEUT # 4.8 x10^3uL (1.8-7.7); NEUT % 68 % (31-73); PLATELET COUNT 124 x10^3/uL (140-400); RED BLOOD COUNT 3.82 x10^6/uL (3.50-5.40); RED CELL DISTRIBUTION WIDTH 12.9 % (11.5-14.5); WHITE BLOOD COUNT 7.1 x10^3/uL (4.0-11.0)
[2018-01-25 08:48] LABS: ALBUMIN 3.4 g/dL (3.4-5.0); ALK PHOS 49 U/L (46-116); ALT (SGPT) 22 U/L (14-59); ANION GAP 3 (6-14); AST (SGOT) 27 U/L (15-37); BLOOD UREA NITROGEN 22 mg/dL (7-20); BUN/CREATININE RATIO 28 (6-20); CALCIUM 9.5 mg/dL (8.5-10.1); CARBON DIOXIDE 38 mmol/L (21-32); CHLORIDE 101 mmol/L (98-107); CREATININE 0.8 mg/dL (0.6-1.0); GFR 72.2; GLUCOSE 105 mg/dL (70-99); POTASSIUM 3.6 mmol/L (3.5-5.1); SODIUM 142 mmol/L (136-145); TOTAL BILIRUBIN 0.7 mg/dL (0.2-1.0); TOTAL PROTEIN 6.7 g/dL (6.4-8.2)
[2018-01-25 09:15] LABS: BASE EXCESS ABG 10 mmol/L (-3-3); HCO3 ABG 33 mmol/L (21-28); PCO2 ABG 40 mmHg (35-46); PH ABG 7.54 (7.35-7.45); PO2 ABG 72 mmHg (65-108); SAT O2 ABG 96 % (92-99)
[2018-01-25] MEDS: VANCOMYCIN 2 GM in IV DEXTROSE 5 %-0.2 % NACL 500 ML IV (09:27)
[2018-01-25 11:13] LABS: FIO2 ABG 40
[2018-01-25] MEDS: LACTOBACILLUS RHAMNOSUS GG 1 CAPSULE. PO ×2 (11:33→23:50)
[2018-01-25] MEDS: FAMOTIDINE 20 MG/2 ML VIAL IVP ×2 (11:33→21:47)
[2018-01-25] MEDS: CHLORHEXIDINE 0.12% 15 ML MOUTHWASH. MM ×2 (11:33→21:43)
[2018-01-25] MEDS: VANCOMYCIN PER PHARMACY MC (12:57)
[2018-01-25 15:11] LABS: MRSA BY PCR Negative (Negative)
[2018-01-25] MEDS: IV NORMAL SALINE 1000ML BAG 1,000 ML IV (16:29)
[2018-01-25 17:23] LABS: BASE EXCESS ABG 11 mmol/L (-3-3); HCO3 ABG 37 mmol/L (21-28); PCO2 ABG 54 mmHg (35-46); PH ABG 7.45 (7.35-7.45); PO2 ABG 79 mmHg (65-108); SAT O2 ABG 96 % (92-99)
[2018-01-25 17:33] LABS: FIO2 ABG 40
[2018-01-25] MEDS: VANCOMYCIN 1.25 GM in IV NORMAL SALINE 250ML 250 ML IV (21:43)
[2018-01-26] MEDS: ACETAMINOPHEN 650 MG/20.3 ML SOLUTION. PEG (00:26)
[2018-01-26] MEDS: PIPERACILLIN/TAZOBACTAM 3.375 GM in IV NORMAL SALINE 50ML 50 ML IV ×3 (06:31→18:04)
[2018-01-26 08:40] LABS: BASE EXCESS ABG 11 mmol/L (-3-3); HCO3 ABG 36 mmol/L (21-28); PCO2 ABG 52 mmHg (35-46); PH ABG 7.46 (7.35-7.45); PO2 ABG 118 mmHg (65-108); SAT O2 ABG 98 % (92-99)
[2018-01-26 08:45] LABS: FIO2 ABG 40
[2018-01-26] MEDS: VANCOMYCIN PER PHARMACY MC (09:54)
[2018-01-26] MEDS: FAMOTIDINE 20 MG/2 ML VIAL IVP ×2 (10:00→21:24)
[2018-01-26] MEDS: MIDAZOLAM 100MG/100ML PREMIX 100 ML IV (10:02)
[2018-01-26] MEDS: VANCOMYCIN 1.25 GM in IV NORMAL SALINE 250ML 250 ML IV (10:03)
[2018-01-26] MEDS: CHLORHEXIDINE 0.12% 15 ML MOUTHWASH. MM ×2 (10:04→21:23)
[2018-01-26] MEDS: ENOXAPARIN 40 MG/0.4 ML SYRINGE. SQ (13:37)
[2018-01-26] MEDS: predniSONE 20 MG TABLET PO (13:38)
[2018-01-26] MEDS: IV NORMAL SALINE 1000ML BAG 1,000 ML IV (13:38)
[2018-01-26] MEDS: IPRATRPIUM/ALBUTEROL 0.5/2.5MG 3 ML NEBU. NEB ×2 (15:50→19:32)
[2018-01-26] MEDS ORDERED: FAMOTIDINE 20 MG/2 ML VIAL IVP (21:00)
[2018-01-26 21:17] LABS: VANC TR 32.8 mcg/mL (10.0-20.0)
[2018-01-27] MEDS: PIPERACILLIN/TAZOBACTAM 3.375 GM in IV NORMAL SALINE 50ML 50 ML IV ×5 (01:10→23:43)
[2018-01-27] MEDS: VANCOMYCIN PER PHARMACY MC (02:02)
[2018-01-27 04:30] LABS: ADD MAN DIFF? NO
[2018-01-27 04:34] LABS: BASO % 0 % (0-3); EOS % 0 % (0-3); HEMATOCRIT 28.9 % (36.0-47.0); HEMOGLOBIN 9.6 g/dL (12.0-15.5); LYMPH % 16 % (24-48); MEAN CORPUSCULAR HEMOGLOBIN 31 pg (25-35); MEAN CORPUSCULAR HGB CONC 33 g/dL (31-37); MEAN CORPUSCULAR VOLUME 94 fL (79-100); MONO # 0.5 x10^3/uL (0.0-1.1); MONO % 8 % (0-9); NEUT % 76 % (31-73); PLATELET COUNT 105 x10^3/uL (140-400); RED BLOOD COUNT 3.09 x10^6/uL (3.50-5.40); RED CELL DISTRIBUTION WIDTH 12.9 % (11.5-14.5); WHITE BLOOD COUNT 6.6 x10^3/uL (4.0-11.0)
[2018-01-27 05:18] LABS: ANION GAP 8 (6-14); BLOOD UREA NITROGEN 31 mg/dL (7-20); CALCIUM 8.9 mg/dL (8.5-10.1); CARBON DIOXIDE 32 mmol/L (21-32); CHLORIDE 101 mmol/L (98-107); CREATININE 1.5 mg/dL (0.6-1.0); GLUCOSE 178 mg/dL (70-99); POTASSIUM 3.2 mmol/L (3.5-5.1); SODIUM 141 mmol/L (136-145)
[2018-01-27 07:31] LABS: BASE EXCESS ABG 10 mmol/L (-3-3); HCO3 ABG 35 mmol/L (21-28); PCO2 ABG 46 mmHg (35-46); PH ABG 7.49 (7.35-7.45); PO2 ABG 88 mmHg (65-108); SAT O2 ABG 97 % (92-99)
[2018-01-27] MEDS: IPRATRPIUM/ALBUTEROL 0.5/2.5MG 3 ML NEBU. NEB ×4 (07:33→20:06)
[2018-01-27 07:57] LABS: FIO2 ABG 40
[2018-01-27] MEDS: IV NORMAL SALINE 1000ML BAG 1,000 ML IV (08:17)
[2018-01-27] MEDS: predniSONE 20 MG TABLET PO (09:02)
[2018-01-27] MEDS: CHLORHEXIDINE 0.12% 15 ML MOUTHWASH. MM ×2 (09:02→20:10)
[2018-01-27] MEDS: FAMOTIDINE 20 MG/2 ML VIAL IVP ×2 (09:02→21:25)
[2018-01-27] MEDS: POTASSIUM CHLORIDE 20 MEQ/15 ML ORAL LIQUID. FT (09:02)
[2018-01-27] MEDS ORDERED: VANCOMYCIN 1 GM in IV 1/2 NORMAL SALINE 250 ML IV (10:00)
[2018-01-27] MEDS ORDERED: MAGNESIUM SULFATE 2GM 50 ML IV (11:00)
[2018-01-27 11:16] LABS: URIC ACID 2.7 mg/dL (2.6-6.0)
[2018-01-27 11:16] LABS: CREATINE KINASE 166 U/L (26-192)
[2018-01-27 11:45] LABS: BASE EXCESS ABG 7 mmol/L (-3-3); HCO3 ABG 34 mmol/L (21-28); PCO2 ABG 58 mmHg (35-46); PH ABG 7.38 (7.35-7.45); PO2 ABG 94 mmHg (65-108); SAT O2 ABG 97 % (92-99)
[2018-01-27 11:59] LABS: FIO2 ABG 40
[2018-01-27] MEDS: ENOXAPARIN 40 MG/0.4 ML SYRINGE. SQ (12:36)
[2018-01-28] MEDS: PIPERACILLIN/TAZOBACTAM 3.375 GM in IV NORMAL SALINE 50ML 50 ML IV ×3 (05:30→18:15)
[2018-01-28 05:50] LABS: ADD MAN DIFF? NO
[2018-01-28 05:56] LABS: BASO % 0 % (0-3); EOS % 1 % (0-3); HEMATOCRIT 29.9 % (36.0-47.0); HEMOGLOBIN 9.9 g/dL (12.0-15.5); LYMPH # 1.2 x10^3/uL (1.0-4.8); LYMPH % 20 % (24-48); MEAN CORPUSCULAR HEMOGLOBIN 31 pg (25-35); MEAN CORPUSCULAR HGB CONC 33 g/dL (31-37); MEAN CORPUSCULAR VOLUME 94 fL (79-100); MONO # 0.7 x10^3/uL (0.0-1.1); MONO % 11 % (0-9); NEUT # 4.1 x10^3uL (1.8-7.7); NEUT % 68 % (31-73); PLATELET COUNT 117 x10^3/uL (140-400); RED BLOOD COUNT 3.18 x10^6/uL (3.50-5.40); RED CELL DISTRIBUTION WIDTH 13.2 % (11.5-14.5)
[2018-01-28 06:37] LABS: ALBUMIN 2.8 g/dL (3.4-5.0); ALBUMIN/GLOBULIN RATIO 0.9 (1.0-1.7); ALK PHOS 37 U/L (46-116); ALT (SGPT) 18 U/L (14-59); ANION GAP 7 (6-14); AST (SGOT) 26 U/L (15-37); BLOOD UREA NITROGEN 24 mg/dL (7-20); BUN/CREATININE RATIO 20 (6-20); CALCIUM 9.2 mg/dL (8.5-10.1); CARBON DIOXIDE 34 mmol/L (21-32); CHLORIDE 107 mmol/L (98-107); CREATININE 1.2 mg/dL (0.6-1.0); GFR 45.2; GLUCOSE 90 mg/dL (70-99); MAGNESIUM 2.3 mg/dL (1.8-2.4); PHOSPHORUS 3.1 mg/dL (2.6-4.7); POTASSIUM 3.5 mmol/L (3.5-5.1); SODIUM 148 mmol/L (136-145); TOTAL BILIRUBIN 0.4 mg/dL (0.2-1.0)
[2018-01-28] MEDS: IPRATRPIUM/ALBUTEROL 0.5/2.5MG 3 ML NEBU. NEB ×4 (08:27→19:50)
[2018-01-28] MEDS: FAMOTIDINE 20 MG/2 ML VIAL IVP (08:59)
[2018-01-28] MEDS: CHLORHEXIDINE 0.12% 15 ML MOUTHWASH. MM ×2 (08:59→20:36)
[2018-01-28] MEDS ORDERED: MAGNESIUM HYDROXIDE 2,400 MG/30 ML ORAL.SUSP. PO (09:00)
[2018-01-28] MEDS ORDERED: LACTULOSE 20 GM/30 ML SOLUTION. PO (09:00)
[2018-01-28] MEDS: IV 1/2 NORMAL SALINE 1,000 ML IV (09:04)
[2018-01-28] MEDS: AMINO AC 3%/ELECTROLYTE/GLYCER 1,000 ML IV (10:00)
[2018-01-28] MEDS: SENNOSIDES/DOCUSATE 8.6/50MG TABLET. PO ×2 (12:25→20:36)
[2018-01-28] MEDS: predniSONE 20 MG TABLET PO (12:25)
[2018-01-28] MEDS: DOCUSATE SODIUM 100 MG CAPSULE. PO ×2 (12:26→20:36)
[2018-01-28] MEDS: ENOXAPARIN 40 MG/0.4 ML SYRINGE. SQ (12:31)
[2018-01-28 16:54] LABS: BASE EXCESS ABG 4 mmol/L (-3-3); HCO3 ABG 33 mmol/L (21-28); PO2 ABG 55 mmHg (65-108); SAT O2 ABG 86 % (92-99)
[2018-01-28 16:55] LABS: PH ABG 7.29 (7.35-7.45)
[2018-01-28 16:56] LABS: FIO2 ABG 28%; PCO2 ABG 69 mmHg (35-46)
[2018-01-28] MEDS ORDERED: LABETALOL 20 MG/4 ML DISP.SYRIN. IVP (17:15)
[2018-01-28] MEDS ORDERED: NICOTINE 21MG PATCH. TD (17:15)
[2018-01-29] MEDS: PIPERACILLIN/TAZOBACTAM 3.375 GM in IV NORMAL SALINE 50ML 50 ML IV ×4 (00:13→17:35)
[2018-01-29 05:50] LABS: ADD MAN DIFF? NO
[2018-01-29 06:10] LABS: BASO % 0 % (0-3); EOS % 0 % (0-3); HEMATOCRIT 28.8 % (36.0-47.0); HEMOGLOBIN 9.6 g/dL (12.0-15.5); LYMPH # 1.2 x10^3/uL (1.0-4.8); LYMPH % 27 % (24-48); MEAN CORPUSCULAR HEMOGLOBIN 32 pg (25-35); MEAN CORPUSCULAR HGB CONC 33 g/dL (31-37); MEAN CORPUSCULAR VOLUME 94 fL (79-100); MONO # 0.5 x10^3/uL (0.0-1.1); MONO % 10 % (0-9); NEUT # 2.8 x10^3uL (1.8-7.7); NEUT % 63 % (31-73); PLATELET COUNT 132 x10^3/uL (140-400); RED BLOOD COUNT 3.05 x10^6/uL (3.50-5.40); RED CELL DISTRIBUTION WIDTH 12.9 % (11.5-14.5); WHITE BLOOD COUNT 4.4 x10^3/uL (4.0-11.0)
[2018-01-29 06:29] LABS: ALBUMIN 2.6 g/dL (3.4-5.0); ANION GAP 8 (6-14); BLOOD UREA NITROGEN 22 mg/dL (7-20); CARBON DIOXIDE 32 mmol/L (21-32); CHLORIDE 107 mmol/L (98-107); CREATININE 1.1 mg/dL (0.6-1.0); GLUCOSE 95 mg/dL (70-99); MAGNESIUM 2.2 mg/dL (1.8-2.4); PHOSPHORUS 4.2 mg/dL (2.6-4.7); POTASSIUM 3.9 mmol/L (3.5-5.1); SODIUM 147 mmol/L (136-145)
[2018-01-29] MEDS: IPRATRPIUM/ALBUTEROL 0.5/2.5MG 3 ML NEBU. NEB ×4 (07:30→21:05)
[2018-01-29 08:19] LABS: BASE EXCESS ABG 5 mmol/L (-3-3); HCO3 ABG 32 mmol/L (21-28); PCO2 ABG 55 mmHg (35-46); PH ABG 7.38 (7.35-7.45); SAT O2 ABG 79 % (92-99)
[2018-01-29 08:25] LABS: PO2 ABG < 42 mmHg (65-108)
[2018-01-29] MEDS: CHLORHEXIDINE 0.12% 15 ML MOUTHWASH. MM ×2 (09:00→09:58)
[2018-01-29] MEDS: DOCUSATE SODIUM 100 MG CAPSULE. PO ×2 (09:58→21:00)
[2018-01-29] MEDS: POTASSIUM CHLORIDE 20 MEQ TABLET.ER. PO (09:58)
[2018-01-29] MEDS: SENNOSIDES/DOCUSATE 8.6/50MG TABLET. PO ×2 (09:58→21:00)
[2018-01-29] MEDS: predniSONE 20 MG TABLET PO (09:59)
[2018-01-29] MEDS: FUROSEMIDE 40 MG TABLET. PO (09:59)
[2018-01-29] MEDS: ENOXAPARIN 40 MG/0.4 ML SYRINGE. SQ (13:59)
[2018-01-29] MEDS: ACETAMINOPHEN 650 MG/20.3 ML SOLUTION. PEG (16:30)
[2018-01-29] MEDS: LACTOBACILLUS RHAMNOSUS GG 1 CAPSULE. PO ×2 (17:36→21:48)
[2018-01-29] MEDS: ALPRAZolam 0.5 MG TABLET PO (21:49)
[2018-01-30] MEDS: PIPERACILLIN/TAZOBACTAM 3.375 GM in IV NORMAL SALINE 50ML 50 ML IV ×4 (00:20→17:32)
[2018-01-30] MEDS: ACETAMINOPHEN 650 MG/20.3 ML SOLUTION. PEG (04:03)
[2018-01-30 05:46] LABS: MAGNESIUM 2.1 mg/dL (1.8-2.4)
[2018-01-30 06:02] LABS: ALBUMIN 2.7 g/dL (3.4-5.0); ANION GAP 4 (6-14); BLOOD UREA NITROGEN 19 mg/dL (7-20); CALCIUM 9.3 mg/dL (8.5-10.1); CARBON DIOXIDE 37 mmol/L (21-32); CHLORIDE 105 mmol/L (98-107); CREATININE 1.3 mg/dL (0.6-1.0); GFR 41.2; GLUCOSE 116 mg/dL (70-99); SODIUM 146 mmol/L (136-145)
[2018-01-30] MEDS: IPRATRPIUM/ALBUTEROL 0.5/2.5MG 3 ML NEBU. NEB ×4 (07:28→20:48)
[2018-01-30] MEDS: LACTOBACILLUS RHAMNOSUS GG 1 CAPSULE. PO ×2 (08:28→21:00)
[2018-01-30] MEDS: POTASSIUM CHLORIDE 20 MEQ TABLET.ER. PO ×2 (08:29→11:12)
[2018-01-30] MEDS: FUROSEMIDE 40 MG TABLET. PO (08:29)
[2018-01-30] MEDS: predniSONE 20 MG TABLET PO (08:29)
[2018-01-30] MEDS: DOCUSATE SODIUM 100 MG CAPSULE. PO ×2 (08:30→21:00)
[2018-01-30] MEDS: SENNOSIDES/DOCUSATE 8.6/50MG TABLET. PO (09:00)
[2018-01-30] MEDS: ENOXAPARIN 40 MG/0.4 ML SYRINGE. SQ (12:34)
[2018-01-30] MEDS: ALPRAZolam 0.5 MG TABLET PO ×2 (15:51→23:52)
[2018-01-31 05:06] LABS: ADD MAN DIFF? NO
[2018-01-31 05:17] LABS: BASO % 0 % (0-3); EOS % 1 % (0-3); HEMATOCRIT 32.3 % (36.0-47.0); HEMOGLOBIN 10.6 g/dL (12.0-15.5); LYMPH # 1.7 x10^3/uL (1.0-4.8); LYMPH % 28 % (24-48); MEAN CORPUSCULAR HEMOGLOBIN 31 pg (25-35); MEAN CORPUSCULAR HGB CONC 33 g/dL (31-37); MEAN CORPUSCULAR VOLUME 94 fL (79-100); MONO # 0.7 x10^3/uL (0.0-1.1); MONO % 12 % (0-9); NEUT # 3.6 x10^3uL (1.8-7.7); NEUT % 59 % (31-73); PLATELET COUNT 186 x10^3/uL (140-400); RED BLOOD COUNT 3.45 x10^6/uL (3.50-5.40); RED CELL DISTRIBUTION WIDTH 12.6 % (11.5-14.5); WHITE BLOOD COUNT 6.1 x10^3/uL (4.0-11.0)
[2018-01-31 05:39] LABS: MAGNESIUM 1.9 mg/dL (1.8-2.4)
[2018-01-31 05:44] LABS: ALBUMIN 2.8 g/dL (3.4-5.0); ANION GAP 3 (6-14); BLOOD UREA NITROGEN 11 mg/dL (7-20); CALCIUM 9.3 mg/dL (8.5-10.1); CARBON DIOXIDE 39 mmol/L (21-32); CHLORIDE 104 mmol/L (98-107); CREATININE 1.1 mg/dL (0.6-1.0); GLUCOSE 86 mg/dL (70-99); PHOSPHORUS 3.8 mg/dL (2.6-4.7); POTASSIUM 3.1 mmol/L (3.5-5.1); SODIUM 146 mmol/L (136-145)
[2018-01-31] MEDS: PIPERACILLIN/TAZOBACTAM 3.375 GM in IV NORMAL SALINE 50ML 50 ML IV ×4 (05:56→17:39)
[2018-01-31] MEDS: IPRATRPIUM/ALBUTEROL 0.5/2.5MG 3 ML NEBU. NEB ×4 (07:18→19:55)
[2018-01-31] MEDS: FUROSEMIDE 40 MG TABLET. PO (08:47)
[2018-01-31] MEDS: ALPRAZolam 0.5 MG TABLET PO ×2 (08:47→16:24)
[2018-01-31] MEDS: LACTOBACILLUS RHAMNOSUS GG 1 CAPSULE. PO ×3 (08:47→21:04)
[2018-01-31] MEDS: predniSONE 20 MG TABLET PO (08:48)
[2018-01-31] MEDS: DOCUSATE SODIUM 100 MG CAPSULE. PO ×2 (08:48→21:00)
[2018-01-31] MEDS: POTASSIUM CHLORIDE 20 MEQ TABLET.ER. PO ×2 (09:00→15:10)
[2018-01-31] MEDS: ENOXAPARIN 40 MG/0.4 ML SYRINGE. SQ (13:32)
[2018-01-31] MEDS: LOPERAMIDE 2 MG CAPSULE PO (15:10)
[2018-01-31 16:18] LABS: C DIFF BY PCR Negative (Negative)
[2018-02-01] MEDS: PIPERACILLIN/TAZOBACTAM 3.375 GM in IV NORMAL SALINE 50ML 50 ML IV ×2 (00:14→05:25)
[2018-02-01] MEDS: IPRATRPIUM/ALBUTEROL 0.5/2.5MG 3 ML NEBU. NEB ×5 (05:42→20:37)
[2018-02-01 06:18] LABS: MAGNESIUM 1.8 mg/dL (1.8-2.4)
[2018-02-01 06:30] LABS: ALBUMIN 2.9 g/dL (3.4-5.0); ANION GAP 3 (6-14); BLOOD UREA NITROGEN 10 mg/dL (7-20); CALCIUM 9.2 mg/dL (8.5-10.1); CARBON DIOXIDE 39 mmol/L (21-32); CHLORIDE 103 mmol/L (98-107); CREATININE 1.2 mg/dL (0.6-1.0); GFR 45.2; GLUCOSE 84 mg/dL (70-99); PHOSPHORUS 3.8 mg/dL (2.6-4.7); POTASSIUM 3.2 mmol/L (3.5-5.1); SODIUM 145 mmol/L (136-145)
[2018-02-01] MEDS: ALPRAZolam 0.5 MG TABLET PO ×2 (07:59→17:26)
[2018-02-01] MEDS: LOPERAMIDE 2 MG CAPSULE PO ×2 (07:59→20:37)
[2018-02-01] MEDS: POTASSIUM CHLORIDE 20 MEQ TABLET.ER. PO (07:59)
[2018-02-01] MEDS: predniSONE 20 MG TABLET PO (07:59)
[2018-02-01] MEDS: LACTOBACILLUS RHAMNOSUS GG 1 CAPSULE. PO ×2 (08:00→20:37)
[2018-02-01] MEDS: FUROSEMIDE 40 MG TABLET. PO (08:00)
[2018-02-01] MEDS: DOCUSATE SODIUM 100 MG CAPSULE. PO ×2 (08:00→20:38)
[2018-02-01] MEDS: PIPERACILLIN/TAZOBACTAM 3.375 GM in IV NORMAL SALINE 100ML 100 ML IV (17:27)
[2018-02-01] MEDS: ENOXAPARIN 40 MG/0.4 ML SYRINGE. SQ (17:27)
[2018-02-02] MEDS: PIPERACILLIN/TAZOBACTAM 3.375 GM in IV NORMAL SALINE 100ML 100 ML IV ×2 (00:41→06:01)
[2018-02-02 06:24] LABS: ALBUMIN 2.7 g/dL (3.4-5.0); ANION GAP 4 (6-14); BLOOD UREA NITROGEN 11 mg/dL (7-20); CALCIUM 8.6 mg/dL (8.5-10.1); CARBON DIOXIDE 38 mmol/L (21-32); CHLORIDE 102 mmol/L (98-107); CREATININE 1.3 mg/dL (0.6-1.0); GFR 41.2; GLUCOSE 119 mg/dL (70-99); PHOSPHORUS 4.3 mg/dL (2.6-4.7); SODIUM 144 mmol/L (136-145)
[2018-02-02] MEDS: IPRATRPIUM/ALBUTEROL 0.5/2.5MG 3 ML NEBU. NEB ×4 (07:39→20:18)
[2018-02-02] MEDS: predniSONE 20 MG TABLET PO (09:17)
[2018-02-02] MEDS: DOCUSATE SODIUM 100 MG CAPSULE. PO ×2 (09:17→21:00)
[2018-02-02] MEDS: FUROSEMIDE 40 MG TABLET. PO (09:17)
[2018-02-02] MEDS: LACTOBACILLUS RHAMNOSUS GG 1 CAPSULE. PO ×2 (09:17→20:18)
[2018-02-02] MEDS: POTASSIUM CHLORIDE 20 MEQ TABLET.ER. PO (09:17)
[2018-02-02] MEDS: ALPRAZolam 0.5 MG TABLET PO ×2 (09:21→20:18)
[2018-02-02 12:32] LABS: THYROID STIM HORMONE (TSH) 2.236 uIU/mL (0.358-3.74)
[2018-02-02 13:06] LABS: VITAMIN-B12 247 pg/mL (247-911)
[2018-02-02] MEDS: CIPROFLOXACIN HCL 250 MG TABLET. PO ×2 (15:50→20:18)
[2018-02-02] MEDS: CHOLECALCIFEROL (VITAMIN D3) 5,000 UNIT CAPSULE PO (15:50)
[2018-02-02] MEDS: ENOXAPARIN 40 MG/0.4 ML SYRINGE. SQ (15:51)
[2018-02-03 05:45] LABS: ALBUMIN 2.8 g/dL (3.4-5.0); ANION GAP 3 (6-14); BLOOD UREA NITROGEN 10 mg/dL (7-20); CARBON DIOXIDE 43 mmol/L (21-32); CHLORIDE 100 mmol/L (98-107); CREATININE 1.1 mg/dL (0.6-1.0); GLUCOSE 106 mg/dL (70-99); POTASSIUM 3.3 mmol/L (3.5-5.1); SODIUM 146 mmol/L (136-145)
[2018-02-03] MEDS: IPRATRPIUM/ALBUTEROL 0.5/2.5MG 3 ML NEBU. NEB ×4 (08:00→19:38)
[2018-02-03] MEDS: CHOLECALCIFEROL (VITAMIN D3) 5,000 UNIT CAPSULE PO (08:15)
[2018-02-03] MEDS: DOCUSATE SODIUM 100 MG CAPSULE. PO ×2 (08:16→21:00)
[2018-02-03] MEDS: CALCIUM CARBONATE 500 MG TABLET PO (08:16)
[2018-02-03] MEDS: FUROSEMIDE 40 MG TABLET. PO (08:16)
[2018-02-03] MEDS: LACTOBACILLUS RHAMNOSUS GG 1 CAPSULE. PO ×2 (08:16→21:29)
[2018-02-03] MEDS: CIPROFLOXACIN HCL 250 MG TABLET. PO ×2 (08:16→21:29)
[2018-02-03] MEDS: POTASSIUM CHLORIDE 20 MEQ TABLET.ER. PO (08:17)
[2018-02-03] MEDS: predniSONE 20 MG TABLET PO (08:17)
[2018-02-03] MEDS: ALPRAZolam 0.5 MG TABLET PO ×2 (08:52→21:29)
[2018-02-03] MEDS: IOHEXOL 240 MG/ML 50ML VIAL. PO (11:45)
[2018-02-03] MEDS: ENOXAPARIN 40 MG/0.4 ML SYRINGE. SQ (12:02)
[2018-02-04] MEDS: IPRATRPIUM/ALBUTEROL 0.5/2.5MG 3 ML NEBU. NEB ×3 (07:22→15:29)
[2018-02-04] MEDS: DOCUSATE SODIUM 100 MG CAPSULE. PO (09:00)
[2018-02-04] MEDS: LACTOBACILLUS RHAMNOSUS GG 1 CAPSULE. PO (09:05)
[2018-02-04] MEDS: predniSONE 20 MG TABLET PO (09:05)
[2018-02-04] MEDS: ALPRAZolam 0.5 MG TABLET PO (09:06)
[2018-02-04] MEDS: FUROSEMIDE 40 MG TABLET. PO (09:06)
[2018-02-04] MEDS: CHOLECALCIFEROL (VITAMIN D3) 5,000 UNIT CAPSULE PO (09:06)
[2018-02-04] MEDS: CIPROFLOXACIN HCL 250 MG TABLET. PO (09:06)
[2018-02-04] MEDS: CALCIUM CARBONATE 500 MG TABLET PO (09:06)
[2018-02-04] MEDS: POTASSIUM CHLORIDE 20 MEQ TABLET.ER. PO (09:06)
[2018-02-04] MEDS: ENOXAPARIN 40 MG/0.4 ML SYRINGE. SQ (13:00)
[2018-02-04 13:46] LABS: % SAT IRON 22 % (15-34); IRON,SERUM 64 ug/dL (50-170)
== END 2018-02-04 18:50 | disposition home health service (06) | DRG 871 ==
LOC: 5 SOUTH 01-28 14:26 → ER 12:54 → 1 WEST ICU 13:55
PROC: 5A1945Z Respiratory Ventilation, 24-96 Consecutive Hours (ICD-10-PCS; principal; 2018-01-24)
PROC: 0BH17EZ Insertion of Endotracheal Airway into Trachea, Via Natural or Artificial Opening (ICD-10-PCS; 2018-01-24)
PROC: 5A09357 Assistance with Respiratory Ventilation, Less than 24 Consecutive Hours, Continuous Positive Airway Pressure (ICD-10-PCS; 2018-01-28)
PROC: 5A09357 Assistance with Respiratory Ventilation, Less than 24 Consecutive Hours, Continuous Positive Airway Pressure (ICD-10-PCS; 2018-01-29)
PROC: 5A09357 Assistance with Respiratory Ventilation, Less than 24 Consecutive Hours, Continuous Positive Airway Pressure (ICD-10-PCS; 2018-01-30)
PROC: 5A09357 Assistance with Respiratory Ventilation, Less than 24 Consecutive Hours, Continuous Positive Airway Pressure (ICD-10-PCS; 2018-01-31)
DX: A41.9 Sepsis, unspecified organism (principal); J18.9 Pneumonia, unspecified organism; J96.21 Acute and chronic respiratory failure with hypoxia; N17.0 Acute kidney failure with tubular necrosis; R65.21 Severe sepsis with septic shock; G93.41 Metabolic encephalopathy; J44.0 Chronic obstructive pulmonary disease with (acute) lower respiratory infection; I50.32 Chronic diastolic (congestive) heart failure; J96.22 Acute and chronic respiratory failure with hypercapnia; E87.0 Hyperosmolality and hypernatremia; J44.1 Chronic obstructive pulmonary disease with (acute) exacerbation; E86.1 Hypovolemia; B96.20 Unspecified Escherichia coli [E. coli] as the cause of diseases classified elsewhere; B96.89 Other specified bacterial agents as the cause of diseases classified elsewhere; E55.9 Vitamin D deficiency, unspecified; E66.9 Obesity, unspecified; E87.6 Hypokalemia; Z96.643 Presence of artificial hip joint, bilateral; M19.90 Unspecified osteoarthritis, unspecified site; F17.200 Nicotine dependence, unspecified, uncomplicated; F32.9 Major depressive disorder, single episode, unspecified; F41.9 Anxiety disorder, unspecified; K57.30 Diverticulosis of large intestine without perforation or abscess without bleeding; Z68.36 Body mass index [BMI] 36.0-36.9, adult; Z83.3 Family history of diabetes mellitus; Z99.81 Dependence on supplemental oxygen; Z98.51 Tubal ligation status
CPT/HCPCS: 31500; 36415; 36600; 51702; 70450; 71045; 74018; 74176; 76770; 80048; 80053; 80069; 80202; 80307; 80329; 81001; 82140; 82306; 82550; 82607; 82805; 83540; 83550; 83735; 84100; 84300; 84443; 84484; 84550; 85025; 85610; 85730; 87040; 87045; 87205; 87324; 87641; 92526-GN; 92610-GN; 93005; 93306; 94002; 94003; 94640; 94660; 94760; 95816; 96361; 96374; 96375; 97110-GP; 97116-GP; 97161-GP; 97166-GO; 97530-GP; 99291-25; J0330; J1650; J2060; J2250; J2310; J2543; J2930; J3010; J3370; J3475; J3490; J7030; J7050; J7512; J7613; J7620; Q9966; S0028

== ENCOUNTER 2018-08-23 19:20 | Inpatient (IN) | payer BC ==
[~2018-08-23] VITALS: Ht 160 cm; Wt 81.2 kg
[~2018-08-23 19:20] MED LIST changes: +CIPR250T30 PO; +DOXY500P4 MC; -IPRA3AMP NEB; +IPRA3AMP29 NEB; +LEVO500T59 PO; +PRED-220 PO
--- NOTE | 2018-08-23 19:48 | PHYS DOC ---
Past Medical History Past Medical History: Anxiety, CHF, COPD Past Surgical History: Hip Replacement, Tubal ligation Alcohol Use: Sober Drug Use: None Adult General Chief Complaint Chief Complaint: DYSPNEA/RESPIRATOY DISTRESS HPI HPI Patient is a 62 year old biba low oxygen, altered mental status, increased co level per son. this occurred today. coudlnt answer questions put trilogy mask on. o2 level this am was 59 ra. back form grocery store pt wason the floor. had pulled off mask, oygen was 54 without oxygen on her fac3. normally 90-91 at baseline on machine had started abx yestrday for some mucus. pt is on hospice usually seen there twice /week. they thought she was going to tonight at home and son has two little kids at home. Review of Systems Review of Systems ellis by mental status. Current Medications Current Medications Current Medications Medications (Trade) Dose Ordered Sig/Dia Start Time Stop Time Status Last Admin Dose Admin Albuterol Sulfate (Ventolin Neb Soln) 10 mg 1X ONCE 08/23/18 20:00 08/23/18 20:01 DC 08/23/18 20:02 10 MG Methylprednisolone Sodium Succinate (SOLU-Medrol 125MG VIAL) 125 mg 1X ONCE 08/23/18 20:00 08/23/18 20:01 DC 08/23/18 20:22 125 MG Piperacillin Sod/ Tazobactam Sod (Zosyn Per Pharmacy) 1 each PRN DAILY PRN 08/23/18 20:00 UNV Piperacillin Sod/ Tazobactam Sod 4.5 gm/Sodium Chloride 100 ml @ 200 mls/hr 1X ONCE 08/23/18 20:15 08/23/18 20:44 08/23/18 20:22 200 MLS/HR Allergies Allergies Allergies Coded Allergies Type Severity Reaction Last Updated Verified lorazepam Adverse Reaction Intermediate Unknown 06/04/18 Yes Physical Exam Physical Exam Constitutional: altered mental status. confused able to say SOME QUESTIONS. HENT: Normocephalic, atraumatic,dry mm. Eyes: PERRLA, EOMI, conjunctiva normal, no discharge. [] Neck: Normal range of motion, no tenderness, supple, no stridor. [] Cardiovascular:Heart rate regular rhythm, no murmur [] Lungs & Thorax: decreased bibasilar sounds and decreased movement throughout. Abdomen: Bowel sounds normal, soft, no tenderness, no masses, no pulsatile masses. [] Skin: Warm, dry, no erythema, no rash. [] Extremities: No tenderness, no cyanosis, no clubbing, ROM intact, no edema. [] Neurologic:a and o x 1. able to follow commands, grossly moving all extremities. gcs 11 Psychologic: Affect normal, judgement normal, mood normal. [] Current Patient Data Vital Signs Vital Signs Date Time Temp Pulse Resp B/P (MAP) Pulse Ox O2 Delivery O2 Flow Rate FiO2 08/23/18 19:45 100 08/23/18 19:40 BiPAP/CPAP 08/23/18 19:30 96.5 85 27 146/72 (96) 96.5 Lab Values Laboratory Tests Test 08/23/18 19:36 08/23/18 19:45 White Blood Count 8.3 x10^3/uL (4.0-11.0) Red Blood Count 3.69 x10^6/uL (3.50-5.40) Hemoglobin 12.0 g/dL (12.0-15.5) Hematocrit 36.4 % (36.0-47.0) Mean Corpuscular Volume 99 fL (79-100) Mean Corpuscular Hemoglobin 33 pg (25-35) Mean Corpuscular Hemoglobin Concent 33 g/dL (31-37) Red Cell Distribution Width 12.9 % (11.5-14.5) Platelet Count 134 x10^3/uL (140-400) L Neutrophils (%) (Auto) 83 % (31-73) H Lymphocytes (%) (Auto) 9 % (24-48) L Monocytes (%) (Auto) 8 % (0-9) Eosinophils (%) (Auto) 0 % (0-3) Basophils (%) (Auto) 0 % (0-3) Neutrophils # (Auto) 6.9 x10^3uL (1.8-7.7) Lymphocytes # (Auto) 0.7 x10^3/uL (1.0-4.8) L Monocytes # (Auto) 0.7 x10^3/uL (0.0-1.1) Eosinophils # (Auto) 0.0 x10^3/uL (0.0-0.7) Basophils # (Auto) 0.0 x10^3/uL (0.0-0.2) Lactic Acid Level 0.6 mmol/L (0.4-2.0) O2 Saturation 99 % (92-99) Arterial Blood pH 7.08 (7.35-7.45) *L Arterial Blood pCO2 at Patient Temp 164 mmHg (35-46) *H Arterial Blood pO2 at Patient Temp 255 mmHg (65-108) H Arterial Blood HCO3 47 mmol/L (21-28) H FiO2 80 Laboratory Tests 08/23/18 19:36 EKG EKG [] Interpretation Time: NSR RATE 84 NO STEMI SEEN. QTC 429. Radiology/Procedures Radiology/Procedures [] Impressions: POSSIBLE LEFT BASILAR CONSOLIDATION NO DEFINITE PTX Course & Med Decision Making Course & Med Decision Making Pertinent Labs and Imaging studies reviewed. (See chart for details) []62-year-old female on hospice DNR/DNI brought in by ambulance with respiratory failure she was more altered today her oxygen level was 54 at home according to the son he says this is how she normally acts when the CO2 was elevated he called hospice they said that the mass back on and they will call back in an hour but he was worried she was going to so he called 911. Further history is limited by the patient's status . ABX started yesterday for some congestion according to the son On detailed evaluation with the son over the telephone he is the power of employment law attorney he would like the patient to be admitted overnight for a trial of BiPAP reviewed the elevated CO2 of 164 and the BiPAP is very unlikely to work he said he agrees she is DNR/DNI but he would like to give it a try overnight in the feels that if she comes home he is worried that she would there overnight. I did speak with the hospice nurse director of undergraduate admissions Steph who thought that given the son's wishes they can check in on her and readmit her if necessary. ABX GIVEN. BIPAP PATIENT BECAME SLIGHTLY MORE ALERT WHILE IN ER. ALBUTEROL/SOLUMEDROL GIVEN. EKG NO ISCHEMIA SEEN. BNP/TROP PENDING AT THIS TIME. Critical care time was 40 minutes exclusive of procedures. For management of hypercarbic respiratory failure. SON WAS VERY CLEAR NO AGGRESSIVE INTERVENTION, NO INTUBATION NO CPR ETC. Dragon Disclaimer Dragon Disclaimer This electronic medical record was generated, in whole or in part, using a voice recognition dictation system. Departure Departure Impression: Primary Impression: COPD (chronic obstructive pulmonary disease) Disposition: 09 ADMITTED INPATIENT Admitting Physician: Deejay Riggs Condition: GUARDED Referrals: ARLIN FONSECA MD (PCP) ROD GARCIA MD Aug 23, 2018 19:48
[2018-08-23] MEDS ORDERED: PIP/TAZO PER PHARMACY MC PRN (20:00)
[2018-08-23] MEDS ORDERED: ALBUTEROL SULFATE 2.5 MG/3 ML NEBU. CONT NEB ONE (20:00)
[2018-08-23] MEDS ORDERED: methylPREDNISolone SOD SUCC PF 125 MG/2 ML VIAL. IV ONE (20:00)
[2018-08-23 20:04] LABS: HCO3 ABG 47 mmol/L (21-28); PCO2 ABG 164 mmHg (35-46); PO2 ABG 255 mmHg (65-108)
[2018-08-23 20:05] LABS: FIO2 ABG 80; SAT O2 ABG 99 % (92-99)
[2018-08-23 20:12] LABS: BASO % 0 % (0-3); EOS % 0 % (0-3); HEMATOCRIT 36.4 % (36.0-47.0); LYMPH # 0.7 x10^3/uL (1.0-4.8); LYMPH % 9 % (24-48); MEAN CORPUSCULAR HEMOGLOBIN 33 pg (25-35); MEAN CORPUSCULAR HGB CONC 33 g/dL (31-37); MEAN CORPUSCULAR VOLUME 99 fL (79-100); MONO # 0.7 x10^3/uL (0.0-1.1); MONO % 8 % (0-9); NEUT # 6.9 x10^3uL (1.8-7.7); NEUT % 83 % (31-73); PLATELET COUNT 134 x10^3/uL (140-400); RED BLOOD COUNT 3.69 x10^6/uL (3.50-5.40); RED CELL DISTRIBUTION WIDTH 12.9 % (11.5-14.5); WHITE BLOOD COUNT 8.3 x10^3/uL (4.0-11.0)
[2018-08-23] MEDS ORDERED: PIPERACILLIN/TAZOBACTAM 4.5 GM in IV NORMAL SALINE 100ML 100 ML IV ONE (20:15)
[2018-08-23 20:21] LABS: PROTHROMBIN TIME PATIENT 12.1 SEC (11.7-14.0)
[2018-08-23 20:53] LABS: BLOOD UREA NITROGEN 18 mg/dL (7-20); BUN/CREATININE RATIO 26 (6-20); CALCIUM 10.1 mg/dL (8.5-10.1); CHLORIDE 100 mmol/L (98-107); CREATININE 0.7 mg/dL (0.6-1.0); GFR 84.2; GLUCOSE 151 mg/dL (70-99); SODIUM 146 mmol/L (136-145)
[2018-08-23 20:56] LABS: CARBON DIOXIDE > 45 mmol/L (21-32)
[2018-08-23 20:58] LABS: ALBUMIN 3.5 g/dL (3.4-5.0); ALBUMIN/GLOBULIN RATIO 0.8 (1.0-1.7); ALK PHOS 63 U/L (46-116); ALT (SGPT) 18 U/L (14-59); AST (SGOT) 13 U/L (15-37); TOTAL BILIRUBIN 0.3 mg/dL (0.2-1.0); TOTAL PROTEIN 7.9 g/dL (6.4-8.2)
--- NOTE | 2018-08-23 20:58 | RAD ---
AP portable chest radiograph 08/23/2018 Clinical History: Shortness of breath. An AP erect portable digital radiograph of the chest was obtained. Comparison study is dated 06/02/2018. The cardiac silhouette is mildly enlarged. Atherosclerotic calcification thoracic aorta is seen. Patchy left lower lobe atelectasis and/or infiltrate is seen. Mild congestive changes are seen involving both lungs. No pneumothorax or pleural effusion is seen. The osseous structures are unchanged. Impression: Patchy left lower lobe atelectasis and/ or infiltrate. Electronically signed by: Conrad Guerrero MD (08/23/2018 8:54 PM) [facility]
[2018-08-23 21:15] VITALS: BP 113/55
[2018-08-23 23:10] VITALS: BP 114/47
[2018-08-24] MEDS ORDERED: MORPHINE SULFATE 2 MG/ML VIAL. IV PRN ×2 (02:00→12:45)
[2018-08-24 03:35] VITALS: BP 91/45
[2018-08-24] MEDS: PIPERACILLIN/TAZOBACTAM 3.375 GM in IV NORMAL SALINE 50ML 50 ML IV SCH ×2 (05:14→11:03)
[2018-08-24 07:03] LABS: BASE EXCESS ABG 15 mmol/L (-3-3); HCO3 ABG 47 mmol/L (21-28); PO2 ABG 60 mmHg (65-108); SAT O2 ABG 90 % (92-99)
--- NOTE | 2018-08-24 07:33 | EKG ---
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
[2018-08-24 07:40] VITALS: BP 93/41
[2018-08-24] MEDS ORDERED: IPRATRPIUM/ALBUTEROL 0.5/2.5MG 3 ML NEBU. NEB SCH ×2 (08:00→16:00)
[2018-08-24] MEDS ORDERED: FURO-68 PO (10:29)
[2018-08-24] MEDS ORDERED: POTA20TA82 PO (10:29)
[2018-08-24] MEDS ORDERED: IPRA3AMP29 NEB (10:29)
[2018-08-24] MEDS ORDERED: METH4TAB2 PO (10:29)
[2018-08-24] MEDS ORDERED: ALPR0.254 PO (10:29)
[2018-08-24] MEDS ORDERED: HALO5TAB PO (10:29)
[2018-08-24] MEDS ORDERED: VENTOLIN HFA18 GM INH (10:29)
[2018-08-24] MEDS ORDERED: GUAI600T47 PO (10:29)
[2018-08-24] MEDS ORDERED: LEVO500T59 PO (10:29)
[2018-08-24] MEDS: LACTOBACILLUS RHAMNOSUS GG 1 CAPSULE. PO SCH ×2 (11:04→20:34)
[2018-08-24 11:41] VITALS: BP 138/48
[2018-08-24] MEDS ORDERED: HALOPERIDOL 5 MG TABLET. PO PRN (12:45)
[2018-08-24] MEDS ORDERED: DOCUSATE SODIUM 100 MG CAPSULE. PO PRN (12:45)
[2018-08-24] MEDS ORDERED: ACETAMINOPHEN 325 MG TABLET. PO PRN (12:45)
[2018-08-24] MEDS ORDERED: ONDANSETRON PF 4 MG/2 ML VIAL. IV PRN (12:45)
[2018-08-24] MEDS ORDERED: ALBUTEROL SULFATE 2.5 MG/3 ML NEBU. NEB PRN (12:45)
[2018-08-24] MEDS ORDERED: traMADol 50 MG TABLET PO PRN (12:45)
[2018-08-24 12:50] LABS: FIO2 ABG 40% 5L NC; PCO2 ABG 117 mmHg (35-46)
[2018-08-24] MEDS: FUROSEMIDE 40 MG TABLET. PO SCH ×2 (13:00→13:34)
[2018-08-24] MEDS: IPRATRPIUM/ALBUTEROL 0.5/2.5MG 3 ML NEBU. NEB SCH ×3 (13:18→20:55)
[2018-08-24] MEDS: ALPRAZolam 0.25 MG TABLET PO SCH ×2 (13:33→20:34)
[2018-08-24] MEDS: predniSONE 20 MG TABLET PO SCH (13:33)
[2018-08-24] MEDS ORDERED: methylPREDNISolone 4 MG TABLET. PO SCH (14:00)
[2018-08-24 14:50] VITALS: BP 109/46
--- NOTE | 2018-08-24 15:25 | CONS ---
DATE OF CONSULTATION: ATTENDING PHYSICIAN: Dr. Villa. REASON FOR CONSULTATION: Respiratory failure. HISTORY OF PRESENT ILLNESS: The patient is very well known to us. She is a 62-year-old female who has history of chronic hypoxic respiratory failure secondary to severe COPD and obstructive sleep apnea/obesity hypoventilation syndrome. She is on home oxygen 3.5 liters. She has chronic hypercapnia. She has required previous hospitalization with worsening hypercapnia. The patient was at home hospice. She was brought in to the hospital after her family member saw more altered mental status. The patient apparently had some cold, and she asked for some nyor-kpn-ptsidos medication. The patient has also been on Xanax. She was noted to have oxygen saturation of 59% on room air. She had pulled off her mask, and as a result, she was very hypoxic. The patient's chest x-ray revealed minimal left lower lobe infiltrate versus atelectasis. Her CO2 was markedly elevated with a normal pH of 7.08 and a pCO2 of 164 and a pO2 of 255 on 80% FiO2. She then had another followup blood gases. She had a short-term BiPAP, and she declined it. Her pH was 7.22, pCO2 of 117 and a pO2 of 60 that was on 40% FiO2. She is currently on a nasal cannula and refusing BiPAP. Palliative care has been consulted again and hospice nurse was here as well. PAST MEDICAL HISTORY: Significant for history of COPD with chronic respiratory failure, history of obesity hypoventilation syndrome and TYRONE, anxiety, CHF. PAST SURGICAL HISTORY: Hip replacement and tubal ligation. SOCIAL HISTORY: Long history of tobacco use. ALLERGIES: LORAZEPAM. REVIEW OF SYSTEMS: Unable to obtain from the patient due to her encephalopathy. She is confused and disoriented. PHYSICAL EXAMINATION: VITAL SIGNS: Reviewed. T-max of 99, blood pressure stable, pulse ox 93% on 3 liters. HEENT: Sclerae nonicteric. NECK: Supple. LUNGS: With diminished breath sounds, no wheezing. CARDIOVASCULAR: Regular rate and rhythm. ABDOMEN: Soft, nontender, obese. EXTREMITIES: With no pitting edema. LABORATORY DATA: Reviewed. ABGs are discussed in my history of present illness. BUN and creatinine 18 and 0.7. White cell count 8.3, hemoglobin 12.0 and platelets are 134. IMPRESSION: 1. Objcw-eo-itcgzhp hypercapnic respiratory failure secondary to acute exacerbation of chronic obstructive pulmonary disease and possible effect of medications. In addition, suspected left lower lobe pneumonia. 2. Abnormal chest x-ray with suspected left lower lobe pneumonia. 3. Underlying chronic obstructive pulmonary disease with chronic respiratory failure and obesity hypoventilation syndrome. 4. Obesity. RECOMMENDATIONS: 1. At this point, the patient has declined to be back on BiPAP. She is a DNR. I have discussed with palliative care, and they will talk to the family member to place her back on home hospice where she was. 2. In the meantime, continue present antibiotics, which could be switched to p.o. at the time of discharge. 3. Oral prednisone with taper. 4. Minimize narcotics and benzodiazepines. 5. Bronchodilators. 6. Discussed with RN. will again try BIPAP if she tolerates. JONATHAN BALDERRAMA MD DR: KRISTY/wesley JOB#: [id number] / [id number] EFREN
--- NOTE | 2018-08-24 15:25 | PDOC1 ---
History and Physical Date of Admission Date of Admission 08/24/18 Identification/Chief Complaint Chief Complaint sob Source Source: Chart review, Patient History of Present Illness History of Present Illness HPI Patient is a 62 year old F, smoker, frequent hosp visitor for copd, high co2, AMS, was dced home with hospice for 3 months. However, pt has sob and family could not reach hospice last night and sent pt here. Pt has AMS now, mild confused, wants to go home, looks calm ,but said sob, on NC5L, but told me at home on NC 10L, and lives with grandson , as per nurse she lives with son instead. Pt was found low o2, and high co2 in ER, but pt refused Bipap. as per ERP, pt had started abx yestrday for some mucus. pt is on hospice usually seen there twice /week. they thought she was going to tonight at home and son has two little kids at home. Past Medical History Cardiovascular: CHF Pulmonary: COPD, Other CENTRAL NERVOUS SYSTEM: Other Past Surgical History Past Surgical History: Total hip replacement Family History Family History: Diabetes, Family History Unknown Family History: Parent Social History ALCOHOL: none Drugs: None Current Problem List Problem List Problems Medical Problems: (1) COPD (chronic obstructive pulmonary disease) Status: Acute Current Medications Current Medications Current Medications Medications (Trade) Dose Ordered Sig/Dia Start Time Stop Time Status Last Admin Dose Admin Acetaminophen (Tylenol) 650 mg PRN Q6HRS PRN 08/24/18 12:45 Albuterol Sulfate (Ventolin Neb Soln) 2.5 mg PRN Q2HR PRN 08/24/18 12:45 Albuterol/ Ipratropium (Duoneb) 3 ml RTQID 08/24/18 16:00 UNV Alprazolam (Xanax) 0.25 mg TID 08/24/18 14:00 08/24/18 13:33 0.25 MG Docusate Sodium (Colace) 100 mg PRN DAILY PRN 08/24/18 12:45 Furosemide (Lasix) 40 mg DAILY 08/24/18 13:00 Guaifenesin (Mucinex) 600 mg BID 08/24/18 21:00 UNV Haloperidol (Haldol) 5 mg Q6HRS PRN 08/24/18 12:45 Influenza Virus Vaccine (Afluria Trivalent [id number] Syringe) 0.5 ml ONCE ONCE 08/24/18 21:00 08/24/18 21:01 Lactobacillus Rhamnosus (Culturelle) 1 cap BID 08/24/18 09:00 08/24/18 11:04 1 CAP Methylprednisolone (Medrol) 4 mg DAILY 08/24/18 14:00 08/24/18 14:00 DC Methylprednisolone Sodium Succinate (SOLU-Medrol 125MG VIAL) 125 mg 1X ONCE 08/23/18 20:00 08/23/18 20:01 DC 08/23/18 20:22 125 MG Morphine Sulfate (Morphine Sulfate) 2 mg PRN Q2HR PRN 08/24/18 12:45 Ondansetron HCl (Zofran) 4 mg PRN Q6HRS PRN 08/24/18 12:45 Piperacillin Sod/ Tazobactam Sod (Zosyn Per Pharmacy) 1 each PRN DAILY PRN 08/23/18 20:00 Piperacillin Sod/ Tazobactam Sod 3.375 gm/Sodium Chloride 50 ml @ 100 mls/hr Q6HRS 08/24/18 06:00 08/24/18 11:03 100 MLS/HR Piperacillin Sod/ Tazobactam Sod 4.5 gm/Sodium Chloride 100 ml @ 200 mls/hr 1X ONCE 08/23/18 20:15 08/23/18 20:44 DC 08/23/18 20:22 200 MLS/HR Potassium Chloride (Klor-Con) 20 meq [id number] 08/25/18 08:00 Prednisone (Prednisone) 40 mg DAILY 08/24/18 14:00 08/24/18 13:33 40 MG Tramadol HCl (Ultram) 50 mg PRN Q6HRS PRN 08/24/18 12:45 Allergies Allergies Allergies Coded Allergies Type Severity Reaction Last Updated Verified lorazepam Adverse Reaction Intermediate 08/23/18 Yes ROS Review of System CONSTITUTIONAL: No fever or chills EYES: No recent changes SKIN: No rash or itching CARDIOVASCULAR: No chest pain, syncope, palpitations, or edema RESPIRATORY: No SOB or cough GASTROINTESTINAL: No nausea, vomiting or abdominal pain NEUROLOGICAL: No headaches or weakness ENDOCRINE: No cold or heat intolerance GENITOURINARY: No urgency or frequency of urination MUSCULOSKELETAL: No back pain or joint pain LYMPHATICS: No enlarged lymph nodes PSYCHIATRIC: No anxiety or depression Physical Exam Physical Exam GEN.: No apparent distress. Alert and oriented x1 to person HEENT: Head is normocephalic, atraumatic NECK: Supple. LUNGS: bl severe decreased bs. HEART: RRR, S1, S2 present. Peripheral pulses intact ABDOMEN: Soft, nontender. Positive bowel sounds. EXTREMITIES: Without any cyanosis. NEUROLOGIC: Normal speech, normal tone PSYCHIATRIC: Normal affect, normal mood. SKIN: No ulcerations Vitals Vitals Vital Signs Date Time Temp Pulse Resp B/P (MAP) Pulse Ox O2 Delivery O2 Flow Rate FiO2 08/24/18 14:50 98.4 88 26 109/46 (67) 93 Nasal Cannula 3.0 98.4 Labs Labs Laboratory Tests Test 08/23/18 19:36 08/23/18 19:45 08/23/18 20:30 08/24/18 07:00 White Blood Count 8.3 x10^3/uL (4.0-11.0) Red Blood Count 3.69 x10^6/uL (3.50-5.40) Hemoglobin 12.0 g/dL (12.0-15.5) Hematocrit 36.4 % (36.0-47.0) Mean Corpuscular Volume 99 fL (79-100) Mean Corpuscular Hemoglobin 33 pg (25-35) Mean Corpuscular Hemoglobin Concent 33 g/dL (31-37) Red Cell Distribution Width 12.9 % (11.5-14.5) Platelet Count 134 x10^3/uL (140-400) Neutrophils (%) (Auto) 83 % (31-73) Lymphocytes (%) (Auto) 9 % (24-48) Monocytes (%) (Auto) 8 % (0-9) Eosinophils (%) (Auto) 0 % (0-3) Basophils (%) (Auto) 0 % (0-3) Neutrophils # (Auto) 6.9 x10^3uL (1.8-7.7) Lymphocytes # (Auto) 0.7 x10^3/uL (1.0-4.8) Monocytes # (Auto) 0.7 x10^3/uL (0.0-1.1) Eosinophils # (Auto) 0.0 x10^3/uL (0.0-0.7) Basophils # (Auto) 0.0 x10^3/uL (0.0-0.2) Prothrombin Time 12.1 SEC (11.7-14.0) Prothromb Time International Ratio 0.9 (0.8-1.1) Lactic Acid Level 0.6 mmol/L (0.4-2.0) O2 Saturation 99 % (92-99) 90 % (92-99) Arterial Blood pH 7.08 (7.35-7.45) 7.22 (7.35-7.45) Arterial Blood pCO2 at Patient Temp 164 mmHg (35-46) 117 mmHg (35-46) Arterial Blood pO2 at Patient Temp 255 mmHg (65-108) 60 mmHg (65-108) Arterial Blood HCO3 47 mmol/L (21-28) 47 mmol/L (21-28) FiO2 80 40% 5l nc Sodium Level 146 mmol/L (136-145) Potassium Level 5.0 mmol/L (3.5-5.1) Chloride Level 100 mmol/L (98-107) Carbon Dioxide Level > 45 mmol/L (21-32) Anion Gap (6-14) Blood Urea Nitrogen 18 mg/dL (7-20) Creatinine 0.7 mg/dL (0.6-1.0) Estimated GFR (Cockcroft-Gault) 84.2 BUN/Creatinine Ratio 26 (6-20) Glucose Level 151 mg/dL (70-99) Calcium Level 10.1 mg/dL (8.5-10.1) Total Bilirubin 0.3 mg/dL (0.2-1.0) Aspartate Amino Transf (AST/SGOT) 13 U/L (15-37) Alanine Aminotransferase (ALT/SGPT) 18 U/L (14-59) Alkaline Phosphatase 63 U/L (46-116) Troponin I Quantitative 0.047 ng/mL (0.000-0.055) UQ-Jph-J-Type Natriuretic Peptide 778 pg/mL (0-124) Total Protein 7.9 g/dL (6.4-8.2) Albumin 3.5 g/dL (3.4-5.0) Albumin/Globulin Ratio 0.8 (1.0-1.7) Arterial Blood Base Excess 15 mmol/L (-3-3) Laboratory Tests Test 08/23/18 19:36 08/23/18 19:45 9/30/18 20:30 08/24/18 07:00 White Blood Count 8.3 x10^3/uL (4.0-11.0) Red Blood Count 3.69 x10^6/uL (3.50-5.40) Hemoglobin 12.0 g/dL (12.0-15.5) Hematocrit 36.4 % (36.0-47.0) Mean Corpuscular Volume 99 fL (79-100) Mean Corpuscular Hemoglobin 33 pg (25-35) Mean Corpuscular Hemoglobin Concent 33 g/dL (31-37) Red Cell Distribution Width 12.9 % (11.5-14.5) Platelet Count 134 x10^3/uL (140-400) Neutrophils (%) (Auto) 83 % (31-73) Lymphocytes (%) (Auto) 9 % (24-48) Monocytes (%) (Auto) 8 % (0-9) Eosinophils (%) (Auto) 0 % (0-3) Basophils (%) (Auto) 0 % (0-3) Neutrophils # (Auto) 6.9 x10^3uL (1.8-7.7) Lymphocytes # (Auto) 0.7 x10^3/uL (1.0-4.8) Monocytes # (Auto) 0.7 x10^3/uL (0.0-1.1) Eosinophils # (Auto) 0.0 x10^3/uL (0.0-0.7) Basophils # (Auto) 0.0 x10^3/uL (0.0-0.2) Prothrombin Time 12.1 SEC (11.7-14.0) Prothromb Time International Ratio 0.9 (0.8-1.1) Lactic Acid Level 0.6 mmol/L (0.4-2.0) O2 Saturation 99 % (92-99) 90 % (92-99) Arterial Blood pH 7.08 (7.35-7.45) 7.22 (7.35-7.45) Arterial Blood pCO2 at Patient Temp 164 mmHg (35-46) 117 mmHg (35-46) Arterial Blood pO2 at Patient Temp 255 mmHg (65-108) 60 mmHg (65-108) Arterial Blood HCO3 47 mmol/L (21-28) 47 mmol/L (21-28) FiO2 80 40% 5l nc Sodium Level 146 mmol/L (136-145) Potassium Level 5.0 mmol/L (3.5-5.1) Chloride Level 100 mmol/L (98-107) Carbon Dioxide Level > 45 mmol/L (21-32) Anion Gap (6-14) Blood Urea Nitrogen 18 mg/dL (7-20) Creatinine 0.7 mg/dL (0.6-1.0) Estimated GFR (Cockcroft-Gault) 84.2 BUN/Creatinine Ratio 26 (6-20) Glucose Level 151 mg/dL (70-99) Calcium Level 10.1 mg/dL (8.5-10.1) Total Bilirubin 0.3 mg/dL (0.2-1.0) Aspartate Amino Transf (AST/SGOT) 13 U/L (15-37) Alanine Aminotransferase (ALT/SGPT) 18 U/L (14-59) Alkaline Phosphatase 63 U/L (46-116) Troponin I Quantitative 0.047 ng/mL (0.000-0.055) WS-Vdf-T-Type Natriuretic Peptide 778 pg/mL (0-124) Total Protein 7.9 g/dL (6.4-8.2) Albumin 3.5 g/dL (3.4-5.0) Albumin/Globulin Ratio 0.8 (1.0-1.7) Arterial Blood Base Excess 15 mmol/L (-3-3) VTE Prophylaxis Ordered VTE Prophylaxis Devices: Yes VTE Pharmacological Prophylaxi: Yes Assessment/Plan Assessment/Plan AMS ,metabolic encephalopathy, hypercapnia acute on chronic hypoxic and hypercapnic resp failure copd exacerbation chf anxiety non compliance smoker hospice plan: cont home meds add duoneb dc zosyn, add doxy NC keep sat 90%, need bipap, but pt refuse add steroid, cough meds PAT consult, pt needs to go to a hospice place if family cannot handle at home dvt ppx ORALIA HERNANDEZ MD Aug 24, 2018 15:24
--- NOTE | 2018-08-24 15:40 | PDOC2 ---
PALLIATIVE CARE Palliative Care Note Palliative Care Consult requested by Dr. Cheng to address discharge plan. Patient alert/confused. Was eating lunch earlier- sitting up in chair. Refusing to wear BiPap Medical Assessment per medical record 1.AMS ,metabolic encephalopathy, hypercapnia 2.acute on chronic hypoxic and hypercapnic resp failure 3. copd exacerbation 4.chf 5.anxiety Patient being followed at home by [facility]. Spoke with son Mark along with Mehran from [facility]. Patient on Hospice Services since May. Followed frequently. was seen both Friday and Friday. Advised family that she was needing more help especially while they are at work (home alone during the day) Son stated patient had taken NyQuil prior to dropping oxygen saturations. Patient had started on oral antibiotic for "a cold" Prior to this Mark stated she was doing "fine" at home. Encouraged son to start to start Medicaid application. She may not be able to go home alone during the day. Son feels that she will get better if she is able to stay 2-3 more days. Patient does not have financial resources for alf. Encouraged Mark to seek additional help at home. Spoke with Dr. Lynch after meeting. Reviewed labs. Patient will be placed on BiPap tonight in attempt to bring CO2 levels down. 1:1 care and plan home tomorrow. Oral antibiotics to be continued at home. Plan: DNR/DNI BiPap tonight. 1:1 care. Return Home with Hospice tomorrow per PERI Zapata Aug 24, 2018 15:40
[2018-08-24] MEDS: ENOXAPARIN 40 MG/0.4 ML SYRINGE. SQ SCH (17:57)
[2018-08-24 19:02] VITALS: BP 135/55
[2018-08-24] MEDS: DOXYCYCLINE HYCLATE 100 MG TABLET PO SCH (20:34)
[2018-08-24 23:01] VITALS: BP 104/54
[2018-08-25 02:48] VITALS: BP 141/68
[2018-08-25 04:30] LABS: BASO % 0 % (0-3); EOS % 0 % (0-3); HEMATOCRIT 30.3 % (36.0-47.0); HEMOGLOBIN 10.1 g/dL (12.0-15.5); LYMPH # 1.3 x10^3/uL (1.0-4.8); LYMPH % 23 % (24-48); MEAN CORPUSCULAR HEMOGLOBIN 32 pg (25-35); MEAN CORPUSCULAR HGB CONC 34 g/dL (31-37); MEAN CORPUSCULAR VOLUME 96 fL (79-100); MONO # 0.5 x10^3/uL (0.0-1.1); MONO % 9 % (0-9); NEUT # 3.8 x10^3uL (1.8-7.7); NEUT % 69 % (31-73); PLATELET COUNT 156 x10^3/uL (140-400); RED BLOOD COUNT 3.15 x10^6/uL (3.50-5.40); RED CELL DISTRIBUTION WIDTH 12.7 % (11.5-14.5); WHITE BLOOD COUNT 5.6 x10^3/uL (4.0-11.0)
[2018-08-25 04:46] LABS: CALCIUM 9.4 mg/dL (8.5-10.1); CREATININE 0.7 mg/dL (0.6-1.0); GFR 84.2; POTASSIUM 3.4 mmol/L (3.5-5.1)
[2018-08-25 07:00] VITALS: BP 121/56
[2018-08-25] MEDS: IPRATRPIUM/ALBUTEROL 0.5/2.5MG 3 ML NEBU. NEB SCH ×3 (07:34→15:20)
[2018-08-25] MEDS ORDERED: POTASSIUM CHLORIDE 20 MEQ TABLET.ER. PO SCH (08:00)
[2018-08-25 08:20] LABS: BASE EXCESS ABG 16 mmol/L (-3-3); HCO3 ABG 43 mmol/L (21-28); PO2 ABG 84 mmHg (65-108); SAT O2 ABG 96 % (92-99)
[2018-08-25 08:25] LABS: PCO2 ABG 69 mmHg (35-46)
[2018-08-25] MEDS: ALPRAZolam 0.25 MG TABLET PO SCH ×2 (08:35→14:26)
[2018-08-25] MEDS: FUROSEMIDE 40 MG TABLET. PO SCH (08:36)
[2018-08-25] MEDS: LACTOBACILLUS RHAMNOSUS GG 1 CAPSULE. PO SCH (08:36)
[2018-08-25] MEDS: DOXYCYCLINE HYCLATE 100 MG TABLET PO SCH (08:36)
[2018-08-25] MEDS: predniSONE 20 MG TABLET PO SCH (08:36)
--- NOTE | 2018-08-25 10:22 | PDOC ---
PULMONARY PROGRESS NOTES Subjective no soa fully awake. used BIPAP last night Vitals Vital Signs Date Time Temp Pulse Resp B/P (MAP) Pulse Ox O2 Delivery O2 Flow Rate FiO2 08/25/18 08:56 Nasal Cannula 3.0 08/25/18 07:00 98.7 82 22 121/56 (77) 95 98.7 General: Alert, No acute distress HEENT: Other Lungs: Clear Cardiovascular: S1 Abdomen: Soft, Other (obese) Extremities: No Edema Labs Laboratory Tests Test 08/23/18 19:36 08/23/18 19:45 08/23/18 20:30 08/24/18 07:00 White Blood Count 8.3 x10^3/uL (4.0-11.0) Red Blood Count 3.69 x10^6/uL (3.50-5.40) Hemoglobin 12.0 g/dL (12.0-15.5) Hematocrit 36.4 % (36.0-47.0) Mean Corpuscular Volume 99 fL (79-100) Mean Corpuscular Hemoglobin 33 pg (25-35) Mean Corpuscular Hemoglobin Concent 33 g/dL (31-37) Red Cell Distribution Width 12.9 % (11.5-14.5) Platelet Count 134 x10^3/uL (140-400) Neutrophils (%) (Auto) 83 % (31-73) Lymphocytes (%) (Auto) 9 % (24-48) Monocytes (%) (Auto) 8 % (0-9) Eosinophils (%) (Auto) 0 % (0-3) Basophils (%) (Auto) 0 % (0-3) Neutrophils # (Auto) 6.9 x10^3uL (1.8-7.7) Lymphocytes # (Auto) 0.7 x10^3/uL (1.0-4.8) Monocytes # (Auto) 0.7 x10^3/uL (0.0-1.1) Eosinophils # (Auto) 0.0 x10^3/uL (0.0-0.7) Basophils # (Auto) 0.0 x10^3/uL (0.0-0.2) Prothrombin Time 12.1 SEC (11.7-14.0) Prothromb Time International Ratio 0.9 (0.8-1.1) Lactic Acid Level 0.6 mmol/L (0.4-2.0) O2 Saturation 99 % (92-99) 90 % (92-99) Arterial Blood pH 7.08 (7.35-7.45) 7.22 (7.35-7.45) Arterial Blood pCO2 at Patient Temp 164 mmHg (35-46) 117 mmHg (35-46) Arterial Blood pO2 at Patient Temp 255 mmHg (65-108) 60 mmHg (65-108) Arterial Blood HCO3 47 mmol/L (21-28) 47 mmol/L (21-28) FiO2 80 40% 5l nc Sodium Level 146 mmol/L (136-145) Potassium Level 5.0 mmol/L (3.5-5.1) Chloride Level 100 mmol/L (98-107) Carbon Dioxide Level > 45 mmol/L (21-32) Anion Gap (6-14) Blood Urea Nitrogen 18 mg/dL (7-20) Creatinine 0.7 mg/dL (0.6-1.0) Estimated GFR (Cockcroft-Gault) 84.2 BUN/Creatinine Ratio 26 (6-20) Glucose Level 151 mg/dL (70-99) Calcium Level 10.1 mg/dL (8.5-10.1) Total Bilirubin 0.3 mg/dL (0.2-1.0) Aspartate Amino Transf (AST/SGOT) 13 U/L (15-37) Alanine Aminotransferase (ALT/SGPT) 18 U/L (14-59) Alkaline Phosphatase 63 U/L (46-116) Troponin I Quantitative 0.047 ng/mL (0.000-0.055) ZJ-Ffm-M-Type Natriuretic Peptide 778 pg/mL (0-124) Total Protein 7.9 g/dL (6.4-8.2) Albumin 3.5 g/dL (3.4-5.0) Albumin/Globulin Ratio 0.8 (1.0-1.7) Arterial Blood Base Excess 15 mmol/L (-3-3) Test 08/24/18 16:42 08/25/18 04:05 08/25/18 08:00 Glucose (Fingerstick) 93 mg/dL (70-99) White Blood Count 5.6 x10^3/uL (4.0-11.0) Red Blood Count 3.15 x10^6/uL (3.50-5.40) Hemoglobin 10.1 g/dL (12.0-15.5) Hematocrit 30.3 % (36.0-47.0) Mean Corpuscular Volume 96 fL (79-100) Mean Corpuscular Hemoglobin 32 pg (25-35) Mean Corpuscular Hemoglobin Concent 34 g/dL (31-37) Red Cell Distribution Width 12.7 % (11.5-14.5) Platelet Count 156 x10^3/uL (140-400) Neutrophils (%) (Auto) 69 % (31-73) Lymphocytes (%) (Auto) 23 % (24-48) Monocytes (%) (Auto) 9 % (0-9) Eosinophils (%) (Auto) 0 % (0-3) Basophils (%) (Auto) 0 % (0-3) Neutrophils # (Auto) 3.8 x10^3uL (1.8-7.7) Lymphocytes # (Auto) 1.3 x10^3/uL (1.0-4.8) Monocytes # (Auto) 0.5 x10^3/uL (0.0-1.1) Eosinophils # (Auto) 0.0 x10^3/uL (0.0-0.7) Basophils # (Auto) 0.0 x10^3/uL (0.0-0.2) Sodium Level 143 mmol/L (136-145) Potassium Level 3.4 mmol/L (3.5-5.1) Chloride Level 99 mmol/L (98-107) Carbon Dioxide Level 42 mmol/L (21-32) Anion Gap 2 (6-14) Blood Urea Nitrogen 21 mg/dL (7-20) Creatinine 0.7 mg/dL (0.6-1.0) Estimated GFR (Cockcroft-Gault) 84.2 Glucose Level 121 mg/dL (70-99) Calcium Level 9.4 mg/dL (8.5-10.1) O2 Saturation 96 % (92-99) Arterial Blood pH 7.42 (7.35-7.45) Arterial Blood pCO2 at Patient Temp 69 mmHg (35-46) Arterial Blood pO2 at Patient Temp 84 mmHg (65-108) Arterial Blood HCO3 43 mmol/L (21-28) Arterial Blood Base Excess 16 mmol/L (-3-3) Laboratory Tests Test 08/24/18 16:42 08/25/18 04:05 08/25/18 08:00 Glucose (Fingerstick) 93 mg/dL (70-99) White Blood Count 5.6 x10^3/uL (4.0-11.0) Red Blood Count 3.15 x10^6/uL (3.50-5.40) Hemoglobin 10.1 g/dL (12.0-15.5) Hematocrit 30.3 % (36.0-47.0) Mean Corpuscular Volume 96 fL (79-100) Mean Corpuscular Hemoglobin 32 pg (25-35) Mean Corpuscular Hemoglobin Concent 34 g/dL (31-37) Red Cell Distribution Width 12.7 % (11.5-14.5) Platelet Count 156 x10^3/uL (140-400) Neutrophils (%) (Auto) 69 % (31-73) Lymphocytes (%) (Auto) 23 % (24-48) Monocytes (%) (Auto) 9 % (0-9) Eosinophils (%) (Auto) 0 % (0-3) Basophils (%) (Auto) 0 % (0-3) Neutrophils # (Auto) 3.8 x10^3uL (1.8-7.7) Lymphocytes # (Auto) 1.3 x10^3/uL (1.0-4.8) Monocytes # (Auto) 0.5 x10^3/uL (0.0-1.1) Eosinophils # (Auto) 0.0 x10^3/uL (0.0-0.7) Basophils # (Auto) 0.0 x10^3/uL (0.0-0.2) Sodium Level 143 mmol/L (136-145) Potassium Level 3.4 mmol/L (3.5-5.1) Chloride Level 99 mmol/L (98-107) Carbon Dioxide Level 42 mmol/L (21-32) Anion Gap 2 (6-14) Blood Urea Nitrogen 21 mg/dL (7-20) Creatinine 0.7 mg/dL (0.6-1.0) Estimated GFR (Cockcroft-Gault) 84.2 Glucose Level 121 mg/dL (70-99) Calcium Level 9.4 mg/dL (8.5-10.1) O2 Saturation 96 % (92-99) Arterial Blood pH 7.42 (7.35-7.45) Arterial Blood pCO2 at Patient Temp 69 mmHg (35-46) Arterial Blood pO2 at Patient Temp 84 mmHg (65-108) Arterial Blood HCO3 43 mmol/L (21-28) Arterial Blood Base Excess 16 mmol/L (-3-3) Medications Active Scripts Medications Dose Route/Sig Max Daily Dose Days Date Category Ventolin Hfa Inhaler (Albuterol Sulfate) 18 Gm Hfa.aer.ad 2 Puff INH QID 08/24/18 Reported Potassium Chloride 20 Meq Tablet.er 20 Meq PO DAILY 08/24/18 Reported Medrol (Methylprednisolone) 4 Mg Tab.ds.pk 4 Mg PO DAILY 08/24/18 Reported Levaquin (Levofloxacin) 500 Mg Tablet 500 Mg PO DAILY 7 08/24/18 Reported Lasix (Furosemide) 40 Mg Tablet 40 Mg PO DAILY 08/24/18 Reported Haloperidol 5 Mg Tablet 5 Mg PO Q6HRS PRN 08/24/18 Reported Mucinex (Guaifenesin) 600 Mg Tablet.er 600 Mg PO BID 08/24/18 Reported Duoneb 0.5-3(2.5) Mg/3 Ml (Albuterol/Ipratropium) 3 Ml Ampul.neb 3 Ml NEB QID 08/24/18 Reported Alprazolam 0.25 Mg Tablet 0.25 Mg PO TID 08/24/18 Reported Impression . . Ngoaq-ki-xiqmtyi hypercapnic respiratory failure secondary to acute exacerbation of chronic obstructive pulmonary disease and possible effect of medications. In addition, suspected left lower lobe pneumonia. 2. Abnormal chest x-ray with suspected left lower lobe pneumonia. 3. Underlying chronic obstructive pulmonary disease with chronic respiratory failure and obesity hypoventilation syndrome. 4. Obesity. Plan . 1. ABG sig improved/ MS baseline now 2. In the meantime, continue present antibiotics, which could be switched to p.o. at the time of discharge. 3. Oral prednisone with taper. 4. Minimize narcotics and benzodiazepines. 5. Bronchodilators. 6. Discussed with RN. and aPt. Agrees to go back to home hospice JONATHAN BALDERRAMA MD Aug 25, 2018 10:22
[2018-08-25] MEDS ORDERED: DOXY100T PO (10:52)
[2018-08-25] MEDS ORDERED: PRED20TA PO (10:52)
[2018-08-25 11:00] VITALS: BP 118/58
[2018-08-25] MEDS ORDERED: POTASSIUM CHLORIDE 20 MEQ TABLET.ER. PO ONE (11:00)
[2018-08-25] MEDS ORDERED: LEVO500T59 PO (11:03)
--- NOTE | 2018-08-25 11:55 | PDOC2 ---
PALLIATIVE CARE Palliative Care Note Palliative Care Patient awake and oriented. Used BiPap PCO2 this am 69. Back to baseline. Plan Home with [facility] today. Son has been notified per staff. PERI HUANG Aug 25, 2018 11:55
--- NOTE | 2018-08-25 13:09 | DISCH ---
DISCHARGE WITH HOME HEALTH DISCHARGE INFORMATION: Discharge Date: Aug 25, 2018 Final Diagnosis: Problems Medical Problems: (1) COPD (chronic obstructive pulmonary disease) Status: Acute Condition on Discharge: Stable CODE STATUS: Code Status: DNR/DNI HOME HEALTH: Face to Face: I certify this patient is under my care and that I, or a nurse practitioner or physician's preschool assistant teacher working with me, had a face to face encounter that meets the physician face to face encounter requirements with this patient on []. Medical Complications: COPD POST DISCHARGE ORDERS: Activity Instructions for Disc: Activity as tolerated Weight Bearing Status after Di: As tolerated DIET AFTER DISCHARGE: Regular FOLLOW-UP: Follow Up With: Hospice company TREATMENT/EQUIPMENT ORDERS: Adaptive Equipment Issued: None Discharge Respiratory Equipmen: Oxygen, BiPAP CERTIFICATION STATEMENT: Certification Statement: Certification Statement: Based on the above finding, I certify that this patient is confined to the home and needs intermittent retirement care, physical therapy and/or speech therapy, or continues to need occupational therapy.~ This patient is under my care, and I have initiated the establishment of the plan of care.~ This patient will be followed by myself or a community physician who will periodically review the plan of care. Home Meds Active Scripts Prednisone (PREDNISONE) 20 Mg Tablet, 40 MG PO DAILY, #20 TAB Prov:ORALIA HERNANDEZ MD 08/25/18 Doxycycline Hyclate (DOXYCYCLINE HYCLATE) 100 Mg Tablet, 100 MG PO BID for 7 Days, #14 TAB Prov:ORALIA HERNANDEZ MD 08/25/18 Reported Medications Levofloxacin (LEVAQUIN) 500 Mg Tablet, 500 MG PO DAILY for 7 Days, #7 TAB Antibiotic Not given this admission 08/25/18 Albuterol Sulfate (VENTOLIN HFA INHALER) 18 Gm Hfa.aer.ad, 2 PUFF INH QID for FOR ASTHMA, INHALER 0 Refills Shortness of air Last dose given: 08/23/18200108/24/18 Potassium Chloride (POTASSIUM CHLORIDE) 20 Meq Tablet.er, 20 MEQ PO DAILY, TAB.SR Supplement Last dose given: 08/25/1883408/24/18 Furosemide (LASIX) 40 Mg Tablet, 40 MG PO DAILY, TAB Diuretic Last dose given: 08/25/1883508/24/18 Haloperidol (HALOPERIDOL) 5 Mg Tablet, 5 MG PO Q6HRS PRN for AGITATION, TAB Anxiety Last dose given: 08/25/1820308/24/18 Guaifenesin (MUCINEX) 600 Mg Tablet.er, 600 MG PO BID, TAB.SR Chest congestion Last dose given: 08/25/1883508/24/18 Ipratropium/Albuterol Sulfate (DUONEB 0.5-3(2.5) MG/3 ML) 3 Ml Ampul.neb, 3 ML NEB QID, EACH Shortness of breath Last dose given: 08/24/1820408/24/18 Alprazolam (ALPRAZOLAM) 0.25 Mg Tablet, 0.25 MG PO TID, TAB 0 Refills Anxiety Last dose given: 08/25/1883408/24/18 Discontinued Reported Medications Methylprednisolone (MEDROL) 4 Mg Tab.ds.pk, 4 MG PO DAILY, TAB 08/24/18 ORALIA HERNANDEZ MD Aug 25, 2018 13:09
--- NOTE | 2018-08-25 13:35 | PDOC3 ---
Discharge Summary [facility] Date of Admission: Aug 23, 2018 Discharge Date: Aug 25, 2018 Admitting Diagnosis AMS ,metabolic encephalopathy, hypercapnia acute on chronic hypoxic and hypercapnic resp failure copd exacerbation chf anxiety non compliance smoker hospice Final Diagnosis CONSULTS pulm Brief Hospital Course Patient is a 62 year old F, smoker, frequent hosp visitor for copd, high co2, AMS, was dced home with hospice for 3 months. However, pt has sob and family could not reach hospice last night and sent pt here. Pt has AMS now, mild confused, wants to go home, looks calm ,but said sob, on NC5L, but told me at home on NC 10L, and lives with grandson , as per nurse she lives with son instead. Pt was found low o2, and high co2 in ER, but pt refused Bipap. as per ERP, pt had started abx yestrday for some mucus. pt is on hospice usually seen there twice /week. they thought she was going to tonight at home and son has two little kids at home. Pt improved with bipap here. was found hypercapnia. however, pt refuse bipap sometimes. Pt mental is back to normal today, said she is not smoking, has bipap at home, on NC3L. DC home with steroid taper , doxy, home hospice. PAT consulted. dc time 35min. GEN.: No apparent distress. Alert and oriented x1 to person HEENT: Head is normocephalic, atraumatic NECK: Supple. LUNGS: bl severe decreased bs. HEART: RRR, S1, S2 present. Peripheral pulses intact ABDOMEN: Soft, nontender. Positive bowel sounds. EXTREMITIES: Without any cyanosis. NEUROLOGIC: Normal speech, normal tone PSYCHIATRIC: Normal affect, normal mood. 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 Disposition home hospice CONDITION AT DISCHARGE: Stable Scheduled Albuterol Sulfate (Ventolin Hfa Inhaler), 2 PUFF INH QID, (Reported) Alprazolam (Alprazolam), 0.25 MG PO TID, (Reported) Doxycycline Hyclate (Doxycycline Hyclate), 100 MG PO BID Furosemide (Lasix), 40 MG PO DAILY, (Reported) Guaifenesin (Mucinex), 600 MG PO BID, (Reported) Ipratropium/Albuterol Sulfate (Duoneb 0.5-3(2.5) Mg/3 Ml), 3 ML NEB QID, ( Reported) Levofloxacin (Levaquin), 500 MG PO DAILY, (Reported) Potassium Chloride (Potassium Chloride), 20 MEQ PO DAILY, (Reported) Prednisone (Prednisone), 40 MG PO DAILY Scheduled PRN Haloperidol (Haloperidol), 5 MG PO Q6HRS PRN for AGITATION, (Reported) Discontinued Medications Methylprednisolone (Medrol), 4 MG PO DAILY, (Reported) ORALIA HERNANDEZ MD Aug 25, 2018 13:35
[2018-08-25] MEDS: ENOXAPARIN 40 MG/0.4 ML SYRINGE. SQ SCH (14:30)
[2018-08-25 15:00] VITALS: BP 133/64
== END 2018-08-25 18:40 | disposition hospice, home (50) | DRG 189 ==
LOC: ER 19:20 → 2 SOUTH 20:00
PROVIDERS: ADMIT Internal Medicine; ATTEND Internal Medicine
PROC: 5A09357 Assistance with Respiratory Ventilation, Less than 24 Consecutive Hours, Continuous Positive Airway Pressure (ICD-10-PCS; principal; 2018-08-23)
PROC: 5A09357 Assistance with Respiratory Ventilation, Less than 24 Consecutive Hours, Continuous Positive Airway Pressure (ICD-10-PCS; 2018-08-24)
PROC: 5A09357 Assistance with Respiratory Ventilation, Less than 24 Consecutive Hours, Continuous Positive Airway Pressure (ICD-10-PCS; 2018-08-25)
DX: J96.21 Acute and chronic respiratory failure with hypoxia (principal); G93.41 Metabolic encephalopathy; J44.1 Chronic obstructive pulmonary disease with (acute) exacerbation; J96.22 Acute and chronic respiratory failure with hypercapnia; F17.200 Nicotine dependence, unspecified, uncomplicated; F41.9 Anxiety disorder, unspecified; G47.33 Obstructive sleep apnea (adult) (pediatric); I50.9 Heart failure, unspecified; Z53.20 Procedure and treatment not carried out because of patient's decision for unspecified reasons; Z96.649 Presence of unspecified artificial hip joint; Z51.5 Encounter for palliative care; Z66 Do not resuscitate; E66.9 Obesity, unspecified; Z83.3 Family history of diabetes mellitus; Z91.19 Patient's noncompliance with other medical treatment and regimen; Z99.81 Dependence on supplemental oxygen; Z98.51 Tubal ligation status; Z88.8 Allergy status to other drugs, medicaments and biological substances; Z68.31 Body mass index [BMI] 31.0-31.9, adult
CPT/HCPCS: 36415; 36600; 71045; 80048; 80053; 82805; 82962; 83605; 83880; 84484; 85025; 85610; 87040; 93005; 94003; 94640; 94644; 94660; 94760; 96365; 96375; 99291; J1650; J2270; J2543; J2930; J7512; J7613; J7620

== ENCOUNTER 2018-09-18 05:59 | Inpatient (IN) | payer MEDICARE, BC ==
[2018-09-18] VITALS (7 sets, daily range): BP systolic 115–156; BP diastolic 60–95
[~2018-09-18] VITALS: Ht 160 cm; Wt 39.0 kg
[~2018-09-18 05:59] MED LIST changes: +ALPR0.254 PO; +DOXY100T PO; +FURO-68 PO; +GUAI600T47 PO; +HALO5TAB PO; +METH4TAB2 PO; +POTA20TA82 PO; +PRED20TA PO; +VENTOLIN HFA18 GM INH
--- NOTE | 2018-09-18 06:32 | PHYS DOC ---
Past Medical History Past Medical History: Anxiety, CHF, COPD Past Surgical History: Hip Replacement, Tubal ligation Alcohol Use: Sober Drug Use: None Adult General Chief Complaint Chief Complaint: ALTERED MENTAL STATUS HPI HPI This is a 62-year-old female presenting to the emergency department today who presents altered and with decreased level of consciousness. She comes in by EMS. EMS reports the patient has been run for this many times. She has end- stage COPD and is currently on hospice. The patient is DNR. There is no family available initially on presentation. I reviewed the patient's previous medical chart which shows the patient typically improves with BiPAP. The patient opens her eyes to painful stimuli and withdrawals from painful stimuli in all extremities. She moves all extremities. Corneal reflexes intact. Pupils are equal 3 mm and reactive. Review of systems was unable to be obtained because the patient's mental status. ED course: 62-year-old female presenting to the emergency department today with decreased mental status. On arrival she is afebrile satting well on 6 L by nasal cannula. She does not have any focal neurologic deficits. Given the patient's history we initiated her on BiPAP. ABG ordered. Blood work ordered. EKG obtained and reviewed by myself shows sinus rhythm with a regular rate. Variable baseline present. Not suggestive of ACS. ST segments are congruent. cxr and head ct ordered. bg wnl. Head CT unremarkable. Chest x-ray unremarkable. ABG shows hypercapnia with a CO2 of 127. Mild acidosis present as well. Remainder the workup is unremarkable. We will admit the patient to the intensive care unit for ventilation, further treatment and care. Basic bridge orders placed. I spoke with Dr. Green who accepts the patient for admission. Current Medications Current Medications Current Medications Medications (Trade) Dose Ordered Sig/Dia Start Time Stop Time Status Last Admin Dose Admin Albuterol/ Ipratropium (Duoneb) 3 ml 1X ONCE 09/18/18 07:00 09/18/18 07:01 DC 09/18/18 07:29 3 ML Methylprednisolone Sodium Succinate (SOLU-Medrol 125MG VIAL) 125 mg 1X ONCE 09/18/18 07:00 09/18/18 07:01 DC 09/18/18 06:44 125 MG Allergies Allergies Allergies Coded Allergies Type Severity Reaction Last Updated Verified lorazepam Adverse Reaction Intermediate 08/23/18 Yes Physical Exam Physical Exam Constitutional: Well developed, well nourished, no acute distress, non-toxic appearance. [] HENT: Normocephalic, atraumatic, bilateral external ears normal, oropharynx moist, no oral exudates, nose normal. [] Eyes: PERRLA, EOMI, conjunctiva normal, no discharge. Neck: Normal range of motion, no tenderness, supple, no stridor. Cardiovascular:Heart rate regular rhythm, no murmur [] Lungs & Thorax: wheezing bilaterally. Abdomen: Bowel sounds normal, soft, no tenderness, no masses, no pulsatile masses. [] Skin: Warm, dry, no erythema, no rash. [] Back: No tenderness, no CVA tenderness. [] Extremities: No tenderness, no cyanosis, no clubbing, ROM intact, no edema. [] Neurologic: Mental status: Somnolent. Does not answer my questions. Cranial nerves: Extraocular movements difficult to assess, eyebrows and upper face close without signs of weakness on corneal reflex testing, uvula elevation nl DTRs: 2+ Sensation: Patient withdraws to painful stimuli on all 4 extremities. Strength: Patient demonstrates ability to move all 4 extremities. Psychologic: Affect normal, judgement normal, mood normal. Current Patient Data Vital Signs Vital Signs Date Time Temp Pulse Resp B/P (MAP) Pulse Ox O2 Delivery O2 Flow Rate FiO2 09/18/18 07:30 98 09/18/18 07:09 80 24 09/18/18 06:00 97.6 149/69 (95) Nasal Cannula 4.0 97.6 Lab Values Laboratory Tests Test 09/18/18 06:14 09/18/18 06:20 09/18/18 06:23 09/18/18 07:17 White Blood Count 5.2 x10^3/uL (4.0-11.0) Red Blood Count 3.66 x10^6/uL (3.50-5.40) Hemoglobin 11.8 g/dL (12.0-15.5) L Hematocrit 35.7 % (36.0-47.0) L Mean Corpuscular Volume 98 fL (79-100) Mean Corpuscular Hemoglobin 32 pg (25-35) Mean Corpuscular Hemoglobin Concent 33 g/dL (31-37) Red Cell Distribution Width 13.1 % (11.5-14.5) Platelet Count 116 x10^3/uL (140-400) L Neutrophils (%) (Auto) 83 % (31-73) H Lymphocytes (%) (Auto) 11 % (24-48) L Monocytes (%) (Auto) 5 % (0-9) Eosinophils (%) (Auto) 0 % (0-3) Basophils (%) (Auto) 0 % (0-3) Neutrophils # (Auto) 4.3 x10^3uL (1.8-7.7) Lymphocytes # (Auto) 0.6 x10^3/uL (1.0-4.8) L Monocytes # (Auto) 0.3 x10^3/uL (0.0-1.1) Eosinophils # (Auto) 0.0 x10^3/uL (0.0-0.7) Basophils # (Auto) 0.0 x10^3/uL (0.0-0.2) Sodium Level 143 mmol/L (136-145) Potassium Level 4.5 mmol/L (3.5-5.1) Chloride Level 100 mmol/L (98-107) Carbon Dioxide Level 45 mmol/L (21-32) H Anion Gap -2 (6-14) L Blood Urea Nitrogen 17 mg/dL (7-20) Creatinine 0.6 mg/dL (0.6-1.0) Estimated GFR (Cockcroft-Gault) 100.6 Glucose Level 138 mg/dL (70-99) H Calcium Level 9.3 mg/dL (8.5-10.1) Total Bilirubin 0.4 mg/dL (0.2-1.0) Direct Bilirubin 0.1 mg/dL (0.0-0.2) Aspartate Amino Transferase (AST) 18 U/L (15-37) Alanine Aminotransferase (ALT) 26 U/L (14-59) Alkaline Phosphatase 49 U/L (46-116) Troponin I Quantitative < 0.017 ng/mL (0.000-0.055) Total Protein 7.3 g/dL (6.4-8.2) Albumin 3.6 g/dL (3.4-5.0) Lipase 180 U/L (73-393) Glucose (Fingerstick) 124 mg/dL (70-99) H O2 Saturation 90 % (92-99) L Arterial Blood pH 7.15 (7.35-7.45) *L Arterial Blood pCO2 at Patient Temp 128 mmHg (35-46) *H Arterial Blood pO2 at Patient Temp 60 mmHg (65-108) L Arterial Blood HCO3 44 mmol/L (21-28) H Arterial Blood Base Excess 10 mmol/L (-3-3) H FiO2 25 Urine Collection Type U cath Urine Color Yellow Urine Clarity Cloudy Urine pH 6.0 Urine Specific [place] 1.020 Urine Protein Negative mg/dL (NEG-TRACE) Urine Glucose (UA) Negative mg/dL (NEG) Urine Ketones (Stick) Negative mg/dL (NEG) Urine Blood Negative (NEG) Urine Nitrite Negative (NEG) Urine Bilirubin Negative (NEG) Urine Urobilinogen Dipstick 0.2 mg/dL (0.2 mg/dL) Urine Leukocyte Esterase Negative (NEG) Urine RBC 0 /HPF (0-2) Urine WBC 0 /HPF (0-4) Urine Bacteria 0 /HPF (0-FEW) Urine Hyaline Casts Moderate /HPF Urine Mucus Marked /LPF Laboratory Tests 09/18/18 06:14 Laboratory Tests 09/18/18 06:14 EKG EKG [] Radiology/Procedures Radiology/Procedures [] Course & Med Decision Making Course & Med Decision Making Pertinent Labs and Imaging studies reviewed. (See chart for details) [] Dragon Disclaimer Dragon Disclaimer This electronic medical record was generated, in whole or in part, using a voice recognition dictation system. Departure Departure Impression: Primary Impression: Hypercapnic respiratory failure Additional Impression: Metabolic encephalopathy Disposition: 09 ADMITTED INPATIENT Admitting Physician: Santo Green Condition: STABLE Referrals: ARLIN FONSECA MD (PCP) Problem Qualifiers BA UNGER MD Sep 18, 2018 06:32
[2018-09-18 06:49] LABS: BASO % 0 % (0-3); CALCIUM 9.3 mg/dL (8.5-10.1); CREATININE 0.6 mg/dL (0.6-1.0); EOS % 0 % (0-3); GFR 100.6; HEMATOCRIT 35.7 % (36.0-47.0); HEMOGLOBIN 11.8 g/dL (12.0-15.5); LYMPH # 0.6 x10^3/uL (1.0-4.8); LYMPH % 11 % (24-48); MEAN CORPUSCULAR HEMOGLOBIN 32 pg (25-35); MEAN CORPUSCULAR HGB CONC 33 g/dL (31-37); MEAN CORPUSCULAR VOLUME 98 fL (79-100); MONO # 0.3 x10^3/uL (0.0-1.1); MONO % 5 % (0-9); NEUT # 4.3 x10^3uL (1.8-7.7); NEUT % 83 % (31-73); PLATELET COUNT 116 x10^3/uL (140-400); POTASSIUM 4.5 mmol/L (3.5-5.1); RED BLOOD COUNT 3.66 x10^6/uL (3.50-5.40); RED CELL DISTRIBUTION WIDTH 13.1 % (11.5-14.5); WHITE BLOOD COUNT 5.2 x10^3/uL (4.0-11.0)
[2018-09-18 06:55] LABS: ALBUMIN 3.6 g/dL (3.4-5.0); DIRECT BILIRUBIN 0.1 mg/dL (0.0-0.2); TOTAL BILIRUBIN 0.4 mg/dL (0.2-1.0); TOTAL PROTEIN 7.3 g/dL (6.4-8.2)
[2018-09-18] MEDS ORDERED: methylPREDNISolone SOD SUCC PF 125 MG/2 ML VIAL. IV ONE (07:00)
[2018-09-18] MEDS ORDERED: IPRATRPIUM/ALBUTEROL 0.5/2.5MG 3 ML NEBU. NEB ONE (07:00)
--- NOTE | 2018-09-18 07:12 | EKG ---
[facility] [address] [place] [address] Test Date: 2018-09-18 Test Time: 06:03:26 Pat Name: SHAUN BROWN Department: Room: Gender: F Utilization Review Nurse: : 1955 Requested By: BA UNGER Order Number: [id number] Reading MD: Micky Blanca MD Measurements Intervals [place] Rate: 92 P: 75 TN: 160 QRS: 69 QRSD: 74 T: 62 QT: 360 QTc: 450 Interpretive Statements SINUS RHYTHM BASELINE ARTIFACT Electronically Signed On 09-21-2018 11:20:48 CDT by iMcky Blanca MD
[2018-09-18 07:28] LABS: BILIRUBIN,URINE NEGATIVE (NEG); CLARITY,URINE CLOUDY; COLOR,URINE YELLOW; NITRITE,URINE NEGATIVE (NEG); PROTEIN,URINE NEGATIVE (NEG-TRACE); UROBILINOGEN,URINE 0.2 mg/dL (0.2 mg/dL)
[2018-09-18 07:35] LABS: BACTERIA,URINE 0 /HPF (0-FEW); RBC,URINE 0 /HPF (0-2); WBC,URINE 0 /HPF (0-4)
[2018-09-18 07:36] LABS: HYALINE CASTS, URINE MODERATE /HPF
--- NOTE | 2018-09-18 07:41 | RAD ---
CT of the head without contrast, 09/18/2018: HISTORY: Confusion Comparison is made to a study from 06/02/2018. The ventricles are within normal limits in size. There is no shift of the midline structures. There is no evidence of acute intracranial hemorrhage or mass effect. IMPRESSION: No acute intracranial abnormality is detected. Electronically signed by: John Butt MD (09/18/2018 7:38 AM) [facility]
--- NOTE | 2018-09-18 07:42 | RAD ---
Portable chest, 09/18/2018: HISTORY: Altered mental status Comparison is made to a study from 08/23/2018. The heart is mildly enlarged. There is calcific plaquing of the aorta. No pulmonary infiltrate is seen. There is no evidence of pleural fluid. IMPRESSION: 1. Mild cardiomegaly and aortic atherosclerosis. 2. No acute abnormality is detected. Electronically signed by: John Butt MD (09/18/2018 7:39 AM) [facility]
[2018-09-18 08:00] LABS: PCO2 COOX 128 mmHg (35-46); PO2 COOX 60 mmHg (65-108)
[2018-09-18] MEDS ORDERED: MORPHINE SULFATE 2 MG/ML VIAL. IV PRN (08:00)
[2018-09-18] MEDS ORDERED: ONDANSETRON PF 4 MG/2 ML VIAL. IV PRN (08:00)
[2018-09-18 08:01] LABS: BASE EXCESS COOX 10 mmol/L (-3-3); HCO3 COOX 44 mmol/L (21-28); SAT O2 COOX 90 % (92-99)
--- NOTE | 2018-09-18 13:12 | PDOC ---
PULMONARY PROGRESS NOTES Vitals Vital Signs Date Time Temp Pulse Resp B/P (MAP) Pulse Ox O2 Delivery O2 Flow Rate FiO2 09/18/18 12:00 Bi-pap 09/18/18 12:00 72 31 139/65 (89) 95 09/18/18 09:00 98.1 98.1 09/18/18 06:00 4.0 General: Alert, No acute distress HEENT: Other Lungs: Clear Cardiovascular: S1 Abdomen: Soft, Other Extremities: No Edema Labs Laboratory Tests Test 09/18/18 06:14 09/18/18 06:20 09/18/18 06:23 09/18/18 07:17 White Blood Count 5.2 x10^3/uL (4.0-11.0) Red Blood Count 3.66 x10^6/uL (3.50-5.40) Hemoglobin 11.8 g/dL (12.0-15.5) Hematocrit 35.7 % (36.0-47.0) Mean Corpuscular Volume 98 fL (79-100) Mean Corpuscular Hemoglobin 32 pg (25-35) Mean Corpuscular Hemoglobin Concent 33 g/dL (31-37) Red Cell Distribution Width 13.1 % (11.5-14.5) Platelet Count 116 x10^3/uL (140-400) Neutrophils (%) (Auto) 83 % (31-73) Lymphocytes (%) (Auto) 11 % (24-48) Monocytes (%) (Auto) 5 % (0-9) Eosinophils (%) (Auto) 0 % (0-3) Basophils (%) (Auto) 0 % (0-3) Neutrophils # (Auto) 4.3 x10^3uL (1.8-7.7) Lymphocytes # (Auto) 0.6 x10^3/uL (1.0-4.8) Monocytes # (Auto) 0.3 x10^3/uL (0.0-1.1) Eosinophils # (Auto) 0.0 x10^3/uL (0.0-0.7) Basophils # (Auto) 0.0 x10^3/uL (0.0-0.2) Sodium Level 143 mmol/L (136-145) Potassium Level 4.5 mmol/L (3.5-5.1) Chloride Level 100 mmol/L (98-107) Carbon Dioxide Level 45 mmol/L (21-32) Anion Gap -2 (6-14) Blood Urea Nitrogen 17 mg/dL (7-20) Creatinine 0.6 mg/dL (0.6-1.0) Estimated GFR (Cockcroft-Gault) 100.6 Glucose Level 138 mg/dL (70-99) Calcium Level 9.3 mg/dL (8.5-10.1) Total Bilirubin 0.4 mg/dL (0.2-1.0) Direct Bilirubin 0.1 mg/dL (0.0-0.2) Aspartate Amino Transf (AST/SGOT) 18 U/L (15-37) Alanine Aminotransferase (ALT/SGPT) 26 U/L (14-59) Alkaline Phosphatase 49 U/L (46-116) Troponin I Quantitative < 0.017 ng/mL (0.000-0.055) Total Protein 7.3 g/dL (6.4-8.2) Albumin 3.6 g/dL (3.4-5.0) Lipase 180 U/L (73-393) Glucose (Fingerstick) 124 mg/dL (70-99) O2 Saturation 90 % (92-99) Arterial Blood pH 7.15 (7.35-7.45) Arterial Blood pCO2 at Patient Temp 128 mmHg (35-46) Arterial Blood pO2 at Patient Temp 60 mmHg (65-108) Arterial Blood HCO3 44 mmol/L (21-28) Arterial Blood Base Excess 10 mmol/L (-3-3) FiO2 25 Urine Collection Type U cath Urine Color Yellow Urine Clarity Cloudy Urine pH 6.0 Urine Specific [place] 1.020 Urine Protein Negative mg/dL (NEG-TRACE) Urine Glucose (UA) Negative mg/dL (NEG) Urine Ketones (Stick) Negative mg/dL (NEG) Urine Blood Negative (NEG) Urine Nitrite Negative (NEG) Urine Bilirubin Negative (NEG) Urine Urobilinogen Dipstick 0.2 mg/dL (0.2 mg/dL) Urine Leukocyte Esterase Negative (NEG) Urine RBC 0 /HPF (0-2) Urine WBC 0 /HPF (0-4) Urine Bacteria 0 /HPF (0-FEW) Urine Hyaline Casts Moderate /HPF Urine Mucus Marked /LPF Laboratory Tests Test 09/18/18 06:14 09/18/18 06:20 09/18/18 06:23 09/18/18 07:17 White Blood Count 5.2 x10^3/uL (4.0-11.0) Red Blood Count 3.66 x10^6/uL (3.50-5.40) Hemoglobin 11.8 g/dL (12.0-15.5) Hematocrit 35.7 % (36.0-47.0) Mean Corpuscular Volume 98 fL (79-100) Mean Corpuscular Hemoglobin 32 pg (25-35) Mean Corpuscular Hemoglobin Concent 33 g/dL (31-37) Red Cell Distribution Width 13.1 % (11.5-14.5) Platelet Count 116 x10^3/uL (140-400) Neutrophils (%) (Auto) 83 % (31-73) Lymphocytes (%) (Auto) 11 % (24-48) Monocytes (%) (Auto) 5 % (0-9) Eosinophils (%) (Auto) 0 % (0-3) Basophils (%) (Auto) 0 % (0-3) Neutrophils # (Auto) 4.3 x10^3uL (1.8-7.7) Lymphocytes # (Auto) 0.6 x10^3/uL (1.0-4.8) Monocytes # (Auto) 0.3 x10^3/uL (0.0-1.1) Eosinophils # (Auto) 0.0 x10^3/uL (0.0-0.7) Basophils # (Auto) 0.0 x10^3/uL (0.0-0.2) Sodium Level 143 mmol/L (136-145) Potassium Level 4.5 mmol/L (3.5-5.1) Chloride Level 100 mmol/L (98-107) Carbon Dioxide Level 45 mmol/L (21-32) Anion Gap -2 (6-14) Blood Urea Nitrogen 17 mg/dL (7-20) Creatinine 0.6 mg/dL (0.6-1.0) Estimated GFR (Cockcroft-Gault) 100.6 Glucose Level 138 mg/dL (70-99) Calcium Level 9.3 mg/dL (8.5-10.1) Total Bilirubin 0.4 mg/dL (0.2-1.0) Direct Bilirubin 0.1 mg/dL (0.0-0.2) Aspartate Amino Transf (AST/SGOT) 18 U/L (15-37) Alanine Aminotransferase (ALT/SGPT) 26 U/L (14-59) Alkaline Phosphatase 49 U/L (46-116) Troponin I Quantitative < 0.017 ng/mL (0.000-0.055) Total Protein 7.3 g/dL (6.4-8.2) Albumin 3.6 g/dL (3.4-5.0) Lipase 180 U/L (73-393) Glucose (Fingerstick) 124 mg/dL (70-99) O2 Saturation 90 % (92-99) Arterial Blood pH 7.15 (7.35-7.45) Arterial Blood pCO2 at Patient Temp 128 mmHg (35-46) Arterial Blood pO2 at Patient Temp 60 mmHg (65-108) Arterial Blood HCO3 44 mmol/L (21-28) Arterial Blood Base Excess 10 mmol/L (-3-3) FiO2 25 Urine Collection Type U cath Urine Color Yellow Urine Clarity Cloudy Urine pH 6.0 Urine Specific [place] 1.020 Urine Protein Negative mg/dL (NEG-TRACE) Urine Glucose (UA) Negative mg/dL (NEG) Urine Ketones (Stick) Negative mg/dL (NEG) Urine Blood Negative (NEG) Urine Nitrite Negative (NEG) Urine Bilirubin Negative (NEG) Urine Urobilinogen Dipstick 0.2 mg/dL (0.2 mg/dL) Urine Leukocyte Esterase Negative (NEG) Urine RBC 0 /HPF (0-2) Urine WBC 0 /HPF (0-4) Urine Bacteria 0 /HPF (0-FEW) Urine Hyaline Casts Moderate /HPF Urine Mucus Marked /LPF Medications Active Scripts Medications Dose Route/Sig Max Daily Dose Days Date Category Dose Instructions Levaquin (Levofloxacin) 500 Mg Tablet 500 Mg PO DAILY 7 08/25/18 Reported Antibiotic Not given this admission Prednisone 20 Mg Tablet 40 Mg PO DAILY 08/25/18 Rx Ventolin Hfa Inhaler (Albuterol Sulfate) 18 Gm Hfa.aer.ad 2 Puff INH QID 08/24/18 Reported Shortness of air Last dose given: 08/23/182001 Potassium Chloride 20 Meq Tablet.er 20 Meq PO DAILY 08/24/18 Reported Supplement Last dose given: 08/25/18 0835 Lasix (Furosemide) 40 Mg Tablet 40 Mg PO DAILY 08/24/18 Reported Diuretic Last dose given: 08/25/18 0836 Haloperidol 5 Mg Tablet 5 Mg PO Q6HRS PRN 08/24/18 Reported Anxiety Last dose given: 08/25/18 0204 Mucinex (Guaifenesin) 600 Mg Tablet.er 600 Mg PO BID 08/24/18 Reported Chest congestion Last dose given: 08/25/18 0836 Duoneb 0.5-3(2.5) Mg/3 Ml (Albuterol/Ipratropium) 3 Ml Ampul.neb 3 Ml NEB QID 08/24/18 Reported Shortness of breath Last dose given: 08/24/18 0205 Alprazolam 0.25 Mg Tablet 0.25 Mg PO TID 08/24/18 Reported Anxiety Last dose given: 08/25/18 0835 Impression . DICTATED A/C RESP FAILURE TRANSFER TO FLOOR PT DNR/PALLIATIVE CARE AYAKA CHAPARRO MD Sep 18, 2018 13:12
[2018-09-18] MEDS ORDERED: ALBUTEROL SULFATE 2.5 MG/3 ML NEBU. NEB PRN (13:15)
[2018-09-18 13:55] LABS: BASE EXCESS ABG 10 mmol/L (-3-3); HCO3 ABG 40 mmol/L (21-28); PO2 ABG 97 mmHg (65-108); SAT O2 ABG 97 % (92-99)
[2018-09-18 13:56] LABS: FIO2 ABG 40; PCO2 ABG 84 mmHg (35-46)
[2018-09-18] MEDS: methylPREDNISolone SOD SUCC PF 125 MG/2 ML VIAL. IV SCH ×2 (14:30→21:51)
--- NOTE | 2018-09-18 15:27 | HP ---
ADMIT DATE: 09/18/2018 CHIEF COMPLAINT: Respiratory failure, mental status change. HISTORY OF PRESENT ILLNESS: The patient is a pleasant 62-year-old female who has end-stage COPD. She is actually on hospice at home, but for some reason, the family called the EMS. They have "ran her many times." They presented to the ER for evaluation of respiratory failure. Indeed, she is hypercapnic. She is obtunded, can barely even open her eyes, will be placed on BiPAP. The patient basically only opens her eyes to painful stimulation. We are going to admit the patient to the ICU and consult Dr. Deleon. PAST MEDICAL HISTORY: End-stage COPD, heart failure, anxiety, hip replacement, tubal ligation. ALLERGIES: LORAZEPAM. FAMILY HISTORY: Coronary artery disease. SOCIAL HISTORY: I think she quit smoking, no drinking or drugs. She lives at home on a hospice. MEDICATIONS: Reviewed, please refer to the MRAD. She is on home oxygen. She apparently has turned it up lately, which may have contributed to her hypercapnia. She is on 9 of the medicines including Levaquin, DuoNebs, Ventolin, Haldol, alprazolam, potassium, Lasix, Mucinex, and prednisone. REVIEW OF SYSTEMS: Unable to obtain. The patient is obtunded. PHYSICAL EXAMINATION: VITAL SIGNS: Temperature is afebrile, pulse 100, respirations 34, blood pressure is 120/60, O2 sat is 89% on BiPAP. GENERAL: She is on BiPAP in the ER. HEART: Distant S1, S2, tachycardic, soft S3. LUNGS: Coarse. ABDOMEN: Soft, positive bowel sounds, no organomegaly. EXTREMITIES: 2+ edema. SKIN: No rashes, but is frail with some slight bruising. ENDOCRINE: No thyromegaly. LYMPHATICS: No cervical nodes. HEMATOPOIETIC: She has some chronic bruising. LABORATORY DATA: White count 5, hemoglobin 12, platelets 116. Electrolytes are normal other than a CO2 of 45 and a anion gap of -2, glucose is 138. Troponin is 0. Chest x-ray shows cardiomegaly and aortic atherosclerosis. ASSESSMENT AND PLAN: Respiratory failure in an elderly female who is on hospice with end-stage chronic obstructive pulmonary disease. She does have significant hypercapnia. We will go ahead and put her on BiPAP, which we have done and blow off some CO2. Get her back to her baseline. We hope to discharge back to home with hospice tomorrow. Consult Pulmonary. ICU monitoring for now. PROGNOSIS: Long-term is terminal. JENNIFER CABRERA DO DR: TIARA/wesley JOB#: [id number] / [id number]
[2018-09-18] MEDS: ALBUTEROL SULFATE 2.5 MG/3 ML NEBU. NEB SCH ×2 (16:05→20:43)
--- NOTE | 2018-09-18 18:04 | PDOC2 ---
PALLIATIVE CARE Palliative Care Note Palliative Care Consult requested by Dr. Rossi to address goals of care. Medical Assessment per medical record Respiratory failure in an elderly female who is on hospice with end-stage chronic obstructive pulmonary disease. Spoke with patient and son and daughter in law. Confirmed Code Status; DNR/DNI. Patient has form that has been completed. Discussed options of care. Patient and family would like to proceed with Snf with hospice. Patient is Medicaid pending. Family not sure if patient is wearing BiPap at home. Concur that patient needs more observation --16/06. Patient is followed by [facility]. Plan: Snf with Medicaid Pending with Hospice If this can not be arranged at discharge, family and patient agreed to home until arrangements can be made. PERI HUANG Sep 18, 2018 18:04
--- NOTE | 2018-09-18 22:31 | CONS ---
DATE OF CONSULTATION: 09/18/2018 ATTENDING PHYSICIAN: Dr. Green. REASON FOR CONSULTATION: The patient seen in pulmonary consultation at the request of Dr. Green for acute on chronic hypercapnic hypoxemic respiratory failure. Initial arterial blood gas pH of 7.15, paCO2 of 128, pO2 of 60. The patient is a 62-year-old well known to us with chronic respiratory failure. Apparently, she is on hospice at home, presented with increasing mental status to the Emergency Department. Arterial blood gas was obtained as indicated above. She has significant hypercapnia. She is on BiPAP. She is in the intensive care unit. I was asked to see her in consultation. The patient does not follow any commands now. She does respond to painful stimuli. Vital signs have been stable. Chest x-ray reviewed, no acute cardiopulmonary process. PAST MEDICAL HISTORY: 1. Chronic hypercapnic hypoxemic respiratory failure secondary to severe COPD. 2. Obesity hypoventilation syndrome. 3. Obstructive sleep apnea. 4. Anxiety. 5. Chronic heart failure. PAST SURGICAL HISTORY: Status post hip replacement, tubal ligation. SOCIAL HISTORY: History of tobacco use. ALLERGIES: LISTED TO LORAZEPAM. REVIEW OF SYSTEMS: Unobtainable secondary to the patient's condition. PHYSICAL EXAMINATION: GENERAL: The patient was in the Intensive Care Unit. VITAL SIGNS: She has been afebrile. O2 saturation greater than 92%. HEENT: Eyes, the sclerae were nonicteric. NECK: Jugular venous distention was not elevated. No lymphadenopathy. CHEST: Full expansion. LUNGS: Poor airway flow, no wheezes. CARDIOVASCULAR: Regular rate and rhythm with S1, S2, no S3. ABDOMEN: Soft, nontender, nondistended. EXTREMITIES: No clubbing, cyanosis, some edema. NEUROLOGIC: The patient was sleepy, responded to painful stimuli. Arterial blood gas as indicated above. White count was normal. Normal hemoglobin and hematocrit were noted. BUN and creatinine were noted. IMPRESSION: 1. Acute on chronic hypoxemic hypercapnic respiratory failure. 2. 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 3. Obstructive sleep apnea, hypoventilation syndrome. 4. Morbid obesity. 5. Chronic heart failure. PLAN: 1. We will continue BiPAP. 2. Noticed that the patient is on anxiolytics at home. This may be contributing to her hypercapnia. 3. Steroids. 4. Nebulized treatments. 5. Transfer out of the intensive care unit. I do appreciate the privilege in sharing this patient's care. The patient is DNR and is on hospice. AYAKA CHAPARRO MD DR: MARCUS/wesley JOB#: [id number] / [id number]
[2018-09-19 03:59] VITALS: BP 134/61
[2018-09-19] MEDS: ALBUTEROL SULFATE 2.5 MG/3 ML NEBU. NEB SCH (06:20)
[2018-09-19 07:00] VITALS: BP 145/67
[2018-09-19] MEDS: methylPREDNISolone SOD SUCC PF 125 MG/2 ML VIAL. IV SCH (07:00)
[2018-09-19 07:27] LABS: BASO % 0 % (0-3); EOS % 0 % (0-3); HEMATOCRIT 32.4 % (36.0-47.0); LYMPH # 0.7 x10^3/uL (1.0-4.8); LYMPH % 20 % (24-48); MEAN CORPUSCULAR HEMOGLOBIN 33 pg (25-35); MEAN CORPUSCULAR HGB CONC 34 g/dL (31-37); MEAN CORPUSCULAR VOLUME 96 fL (79-100); MONO # 0.1 x10^3/uL (0.0-1.1); MONO % 4 % (0-9); NEUT # 2.6 x10^3uL (1.8-7.7); NEUT % 76 % (31-73); PLATELET COUNT 123 x10^3/uL (140-400); RED BLOOD COUNT 3.39 x10^6/uL (3.50-5.40); RED CELL DISTRIBUTION WIDTH 13.2 % (11.5-14.5); WHITE BLOOD COUNT 3.4 x10^3/uL (4.0-11.0)
[2018-09-19 07:44] LABS: CALCIUM 9.8 mg/dL (8.5-10.1); CREATININE 0.8 mg/dL (0.6-1.0); GFR 72.2; POTASSIUM 3.6 mmol/L (3.5-5.1)
--- NOTE | 2018-09-19 08:01 | PDOC ---
PULMONARY PROGRESS NOTES Subjective PT AWAKE AND ALERT NO RESP COMPLAINTS Vitals Vital Signs Date Time Temp Pulse Resp B/P (MAP) Pulse Ox O2 Delivery O2 Flow Rate FiO2 09/19/18 06:20 92 Nasal Cannula 4.0 09/19/18 03:59 97.8 73 22 134/61 (85) 97.8 General: Alert, No acute distress HEENT: Other Lungs: Clear Cardiovascular: S1 Abdomen: Soft, Other Extremities: No Edema Labs Laboratory Tests Test 09/18/18 06:14 09/18/18 06:20 09/18/18 06:23 09/18/18 07:00 White Blood Count 5.2 x10^3/uL (4.0-11.0) Red Blood Count 3.66 x10^6/uL (3.50-5.40) Hemoglobin 11.8 g/dL (12.0-15.5) Hematocrit 35.7 % (36.0-47.0) Mean Corpuscular Volume 98 fL (79-100) Mean Corpuscular Hemoglobin 32 pg (25-35) Mean Corpuscular Hemoglobin Concent 33 g/dL (31-37) Red Cell Distribution Width 13.1 % (11.5-14.5) Platelet Count 116 x10^3/uL (140-400) Neutrophils (%) (Auto) 83 % (31-73) Lymphocytes (%) (Auto) 11 % (24-48) Monocytes (%) (Auto) 5 % (0-9) Eosinophils (%) (Auto) 0 % (0-3) Basophils (%) (Auto) 0 % (0-3) Neutrophils # (Auto) 4.3 x10^3uL (1.8-7.7) Lymphocytes # (Auto) 0.6 x10^3/uL (1.0-4.8) Monocytes # (Auto) 0.3 x10^3/uL (0.0-1.1) Eosinophils # (Auto) 0.0 x10^3/uL (0.0-0.7) Basophils # (Auto) 0.0 x10^3/uL (0.0-0.2) Sodium Level 143 mmol/L (136-145) Potassium Level 4.5 mmol/L (3.5-5.1) Chloride Level 100 mmol/L (98-107) Carbon Dioxide Level 45 mmol/L (21-32) Anion Gap -2 (6-14) Blood Urea Nitrogen 17 mg/dL (7-20) Creatinine 0.6 mg/dL (0.6-1.0) Estimated GFR (Cockcroft-Gault) 100.6 Glucose Level 138 mg/dL (70-99) Calcium Level 9.3 mg/dL (8.5-10.1) Total Bilirubin 0.4 mg/dL (0.2-1.0) Direct Bilirubin 0.1 mg/dL (0.0-0.2) Aspartate Amino Transf (AST/SGOT) 18 U/L (15-37) Alanine Aminotransferase (ALT/SGPT) 26 U/L (14-59) Alkaline Phosphatase 49 U/L (46-116) Troponin I Quantitative < 0.017 ng/mL (0.000-0.055) Total Protein 7.3 g/dL (6.4-8.2) Albumin 3.6 g/dL (3.4-5.0) Lipase 180 U/L (73-393) Glucose (Fingerstick) 124 mg/dL (70-99) O2 Saturation 90 % (92-99) Arterial Blood pH 7.15 (7.35-7.45) Arterial Blood pCO2 at Patient Temp 128 mmHg (35-46) Arterial Blood pO2 at Patient Temp 60 mmHg (65-108) Arterial Blood HCO3 44 mmol/L (21-28) Arterial Blood Base Excess 10 mmol/L (-3-3) FiO2 25 Nasal Screen MRSA (PCR) Negative (Negative) Test 09/18/18 07:17 09/18/18 13:30 09/19/18 06:00 Urine Collection Type U cath Urine Color Yellow Urine Clarity Cloudy Urine pH 6.0 Urine Specific [place] 1.020 Urine Protein Negative mg/dL (NEG-TRACE) Urine Glucose (UA) Negative mg/dL (NEG) Urine Ketones (Stick) Negative mg/dL (NEG) Urine Blood Negative (NEG) Urine Nitrite Negative (NEG) Urine Bilirubin Negative (NEG) Urine Urobilinogen Dipstick 0.2 mg/dL (0.2 mg/dL) Urine Leukocyte Esterase Negative (NEG) Urine RBC 0 /HPF (0-2) Urine WBC 0 /HPF (0-4) Urine Bacteria 0 /HPF (0-FEW) Urine Hyaline Casts Moderate /HPF Urine Mucus Marked /LPF O2 Saturation 97 % (92-99) Arterial Blood pH 7.29 (7.35-7.45) Arterial Blood pCO2 at Patient Temp 84 mmHg (35-46) Arterial Blood pO2 at Patient Temp 97 mmHg (65-108) Arterial Blood HCO3 40 mmol/L (21-28) Arterial Blood Base Excess 10 mmol/L (-3-3) FiO2 40 White Blood Count 3.4 x10^3/uL (4.0-11.0) Red Blood Count 3.39 x10^6/uL (3.50-5.40) Hemoglobin 11.0 g/dL (12.0-15.5) Hematocrit 32.4 % (36.0-47.0) Mean Corpuscular Volume 96 fL (79-100) Mean Corpuscular Hemoglobin 33 pg (25-35) Mean Corpuscular Hemoglobin Concent 34 g/dL (31-37) Red Cell Distribution Width 13.2 % (11.5-14.5) Platelet Count 123 x10^3/uL (140-400) Neutrophils (%) (Auto) 76 % (31-73) Lymphocytes (%) (Auto) 20 % (24-48) Monocytes (%) (Auto) 4 % (0-9) Eosinophils (%) (Auto) 0 % (0-3) Basophils (%) (Auto) 0 % (0-3) Neutrophils # (Auto) 2.6 x10^3uL (1.8-7.7) Lymphocytes # (Auto) 0.7 x10^3/uL (1.0-4.8) Monocytes # (Auto) 0.1 x10^3/uL (0.0-1.1) Eosinophils # (Auto) 0.0 x10^3/uL (0.0-0.7) Basophils # (Auto) 0.0 x10^3/uL (0.0-0.2) Sodium Level 142 mmol/L (136-145) Potassium Level 3.6 mmol/L (3.5-5.1) Chloride Level 98 mmol/L (98-107) Carbon Dioxide Level 40 mmol/L (21-32) Anion Gap 4 (6-14) Blood Urea Nitrogen 28 mg/dL (7-20) Creatinine 0.8 mg/dL (0.6-1.0) Estimated GFR (Cockcroft-Gault) 72.2 Glucose Level 141 mg/dL (70-99) Calcium Level 9.8 mg/dL (8.5-10.1) Laboratory Tests Test 09/18/18 13:30 09/19/18 06:00 O2 Saturation 97 % (92-99) Arterial Blood pH 7.29 (7.35-7.45) Arterial Blood pCO2 at Patient Temp 84 mmHg (35-46) Arterial Blood pO2 at Patient Temp 97 mmHg (65-108) Arterial Blood HCO3 40 mmol/L (21-28) Arterial Blood Base Excess 10 mmol/L (-3-3) FiO2 40 White Blood Count 3.4 x10^3/uL (4.0-11.0) Red Blood Count 3.39 x10^6/uL (3.50-5.40) Hemoglobin 11.0 g/dL (12.0-15.5) Hematocrit 32.4 % (36.0-47.0) Mean Corpuscular Volume 96 fL (79-100) Mean Corpuscular Hemoglobin 33 pg (25-35) Mean Corpuscular Hemoglobin Concent 34 g/dL (31-37) Red Cell Distribution Width 13.2 % (11.5-14.5) Platelet Count 123 x10^3/uL (140-400) Neutrophils (%) (Auto) 76 % (31-73) Lymphocytes (%) (Auto) 20 % (24-48) Monocytes (%) (Auto) 4 % (0-9) Eosinophils (%) (Auto) 0 % (0-3) Basophils (%) (Auto) 0 % (0-3) Neutrophils # (Auto) 2.6 x10^3uL (1.8-7.7) Lymphocytes # (Auto) 0.7 x10^3/uL (1.0-4.8) Monocytes # (Auto) 0.1 x10^3/uL (0.0-1.1) Eosinophils # (Auto) 0.0 x10^3/uL (0.0-0.7) Basophils # (Auto) 0.0 x10^3/uL (0.0-0.2) Sodium Level 142 mmol/L (136-145) Potassium Level 3.6 mmol/L (3.5-5.1) Chloride Level 98 mmol/L (98-107) Carbon Dioxide Level 40 mmol/L (21-32) Anion Gap 4 (6-14) Blood Urea Nitrogen 28 mg/dL (7-20) Creatinine 0.8 mg/dL (0.6-1.0) Estimated GFR (Cockcroft-Gault) 72.2 Glucose Level 141 mg/dL (70-99) Calcium Level 9.8 mg/dL (8.5-10.1) Medications Active Scripts Medications Dose Route/Sig Max Daily Dose Days Date Category Dose Instructions Levaquin (Levofloxacin) 500 Mg Tablet 500 Mg PO DAILY 7 08/25/18 Reported Antibiotic Not given this admission Prednisone 20 Mg Tablet 40 Mg PO DAILY 08/25/18 Rx Ventolin Hfa Inhaler (Albuterol Sulfate) 18 Gm Hfa.aer.ad 2 Puff INH QID 08/24/18 Reported Shortness of air Last dose given: 08/23/182001 Potassium Chloride 20 Meq Tablet.er 20 Meq PO DAILY 08/24/18 Reported Supplement Last dose given: 08/25/18 0835 Lasix (Furosemide) 40 Mg Tablet 40 Mg PO DAILY 08/24/18 Reported Diuretic Last dose given: 08/25/18 0836 Haloperidol 5 Mg Tablet 5 Mg PO Q6HRS PRN 08/24/18 Reported Anxiety Last dose given: 08/25/18 0204 Mucinex (Guaifenesin) 600 Mg Tablet.er 600 Mg PO BID 08/24/18 Reported Chest congestion Last dose given: 08/25/18 0836 Duoneb 0.5-3(2.5) Mg/3 Ml (Albuterol/Ipratropium) 3 Ml Ampul.neb 3 Ml NEB QID 08/24/18 Reported Shortness of breath Last dose given: 08/24/18 0205 Alprazolam 0.25 Mg Tablet 0.25 Mg PO TID 08/24/18 Reported Anxiety Last dose given: 08/25/18 0835 Impression . IMPRESSION: 1. Acute on chronic hypoxemic hypercapnic respiratory failure. 2. 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 3. Obstructive sleep apnea, hypoventilation syndrome. 4. Morbid obesity. 5. Chronic heart failure. Plan . OK TO D/C IN AM FRIDAY INFORMED PT THAT SHE NEEDS TO AVOID SEDATING MEDICATION DECREASE XANAX INTAKE AYAKA CHAPARRO MD Sep 19, 2018 08:01
[2018-09-19 08:04] VITALS: BP 145/67
[2018-09-19] MEDS ORDERED: HALOPERIDOL 5 MG TABLET. PO PRN (09:30)
[2018-09-19] MEDS ORDERED: FUROSEMIDE 40 MG TABLET. PO SCH (10:00)
[2018-09-19 11:00] VITALS: BP 142/66
[2018-09-19] MEDS: IPRATRPIUM/ALBUTEROL 0.5/2.5MG 3 ML NEBU. NEB SCH ×4 (11:07→15:21)
--- NOTE | 2018-09-19 11:16 | PDOC ---
PROGRESS NOTES Chief Complaint Chief Complaint 1. Acute on chronic hypoxemic hypercapnic respiratory failure. 2. 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 3. Obstructive sleep apnea, hypoventilation syndrome. 4. Morbid obesity. 5. Chronic heart failure. History of Present Illness History of Present Illness She wants to go home Very diminished breath sounds but no wheezing appreciable On very high doses steroids 125 IV every 8 On home O2 / Family apparently wants her to SNU There is a mention of hospice/home health Plan: Start tapering steroids down to 60 IV every 8 Add PTOT Need to verify if this is going to be SNU or home hospice etc. Discussed with RN Vitals Vitals Vital Signs Date Time Temp Pulse Resp B/P (MAP) Pulse Ox O2 Delivery O2 Flow Rate FiO2 09/19/18 11:09 95 Nasal Cannula 4.0 09/19/18 08:04 98.3 74 16 145/67 (93) 98.3 Physical Exam General: Alert Heart: Regular rate, Normal S1, Normal S2 Lungs: Other (very diminished breath sounds) Abdomen: Normal bowel sounds, Soft, No tenderness Extremities: No clubbing, No cyanosis, No edema, Normal pulses Skin: No rashes, No breakdown, No significant lesion Labs LABS Laboratory Tests Test 09/18/18 13:30 09/19/18 06:00 O2 Saturation 97 % (92-99) Arterial Blood pH 7.29 (7.35-7.45) Arterial Blood pCO2 at Patient Temp 84 mmHg (35-46) Arterial Blood pO2 at Patient Temp 97 mmHg (65-108) Arterial Blood HCO3 40 mmol/L (21-28) Arterial Blood Base Excess 10 mmol/L (-3-3) FiO2 40 White Blood Count 3.4 x10^3/uL (4.0-11.0) Red Blood Count 3.39 x10^6/uL (3.50-5.40) Hemoglobin 11.0 g/dL (12.0-15.5) Hematocrit 32.4 % (36.0-47.0) Mean Corpuscular Volume 96 fL (79-100) Mean Corpuscular Hemoglobin 33 pg (25-35) Mean Corpuscular Hemoglobin Concent 34 g/dL (31-37) Red Cell Distribution Width 13.2 % (11.5-14.5) Platelet Count 123 x10^3/uL (140-400) Neutrophils (%) (Auto) 76 % (31-73) Lymphocytes (%) (Auto) 20 % (24-48) Monocytes (%) (Auto) 4 % (0-9) Eosinophils (%) (Auto) 0 % (0-3) Basophils (%) (Auto) 0 % (0-3) Neutrophils # (Auto) 2.6 x10^3uL (1.8-7.7) Lymphocytes # (Auto) 0.7 x10^3/uL (1.0-4.8) Monocytes # (Auto) 0.1 x10^3/uL (0.0-1.1) Eosinophils # (Auto) 0.0 x10^3/uL (0.0-0.7) Basophils # (Auto) 0.0 x10^3/uL (0.0-0.2) Sodium Level 142 mmol/L (136-145) Potassium Level 3.6 mmol/L (3.5-5.1) Chloride Level 98 mmol/L (98-107) Carbon Dioxide Level 40 mmol/L (21-32) Anion Gap 4 (6-14) Blood Urea Nitrogen 28 mg/dL (7-20) Creatinine 0.8 mg/dL (0.6-1.0) Estimated GFR (Cockcroft-Gault) 72.2 Glucose Level 141 mg/dL (70-99) Calcium Level 9.8 mg/dL (8.5-10.1) Review of Systems Review of Systems No increase in SOA, no phlegm, no fever, no chest pain, no abdominal pain, no mental status issues Assessment and Plan Assessmemt and Plan Problems Medical Problems: (1) Hypercapnic respiratory failure Status: Acute (2) Metabolic encephalopathy Status: Acute Comment Review of Relevant I have reviewed the following items natasha (where applicable) has been applied. Labs Laboratory Tests Test 09/18/18 06:14 09/18/18 06:20 09/18/18 06:23 09/18/18 07:00 White Blood Count 5.2 x10^3/uL (4.0-11.0) Red Blood Count 3.66 x10^6/uL (3.50-5.40) Hemoglobin 11.8 g/dL (12.0-15.5) Hematocrit 35.7 % (36.0-47.0) Mean Corpuscular Volume 98 fL (79-100) Mean Corpuscular Hemoglobin 32 pg (25-35) Mean Corpuscular Hemoglobin Concent 33 g/dL (31-37) Red Cell Distribution Width 13.1 % (11.5-14.5) Platelet Count 116 x10^3/uL (140-400) Neutrophils (%) (Auto) 83 % (31-73) Lymphocytes (%) (Auto) 11 % (24-48) Monocytes (%) (Auto) 5 % (0-9) Eosinophils (%) (Auto) 0 % (0-3) Basophils (%) (Auto) 0 % (0-3) Neutrophils # (Auto) 4.3 x10^3uL (1.8-7.7) Lymphocytes # (Auto) 0.6 x10^3/uL (1.0-4.8) Monocytes # (Auto) 0.3 x10^3/uL (0.0-1.1) Eosinophils # (Auto) 0.0 x10^3/uL (0.0-0.7) Basophils # (Auto) 0.0 x10^3/uL (0.0-0.2) Sodium Level 143 mmol/L (136-145) Potassium Level 4.5 mmol/L (3.5-5.1) Chloride Level 100 mmol/L (98-107) Carbon Dioxide Level 45 mmol/L (21-32) Anion Gap -2 (6-14) Blood Urea Nitrogen 17 mg/dL (7-20) Creatinine 0.6 mg/dL (0.6-1.0) Estimated GFR (Cockcroft-Gault) 100.6 Glucose Level 138 mg/dL (70-99) Calcium Level 9.3 mg/dL (8.5-10.1) Total Bilirubin 0.4 mg/dL (0.2-1.0) Direct Bilirubin 0.1 mg/dL (0.0-0.2) Aspartate Amino Transf (AST/SGOT) 18 U/L (15-37) Alanine Aminotransferase (ALT/SGPT) 26 U/L (14-59) Alkaline Phosphatase 49 U/L (46-116) Troponin I Quantitative < 0.017 ng/mL (0.000-0.055) Total Protein 7.3 g/dL (6.4-8.2) Albumin 3.6 g/dL (3.4-5.0) Lipase 180 U/L (73-393) Glucose (Fingerstick) 124 mg/dL (70-99) O2 Saturation 90 % (92-99) Arterial Blood pH 7.15 (7.35-7.45) Arterial Blood pCO2 at Patient Temp 128 mmHg (35-46) Arterial Blood pO2 at Patient Temp 60 mmHg (65-108) Arterial Blood HCO3 44 mmol/L (21-28) Arterial Blood Base Excess 10 mmol/L (-3-3) FiO2 25 Nasal Screen MRSA (PCR) Negative (Negative) Test 09/18/18 07:17 09/18/18 13:30 09/19/18 06:00 Urine Collection Type U cath Urine Color Yellow Urine Clarity Cloudy Urine pH 6.0 Urine Specific [place] 1.020 Urine Protein Negative mg/dL (NEG-TRACE) Urine Glucose (UA) Negative mg/dL (NEG) Urine Ketones (Stick) Negative mg/dL (NEG) Urine Blood Negative (NEG) Urine Nitrite Negative (NEG) Urine Bilirubin Negative (NEG) Urine Urobilinogen Dipstick 0.2 mg/dL (0.2 mg/dL) Urine Leukocyte Esterase Negative (NEG) Urine RBC 0 /HPF (0-2) Urine WBC 0 /HPF (0-4) Urine Bacteria 0 /HPF (0-FEW) Urine Hyaline Casts Moderate /HPF Urine Mucus Marked /LPF O2 Saturation 97 % (92-99) Arterial Blood pH 7.29 (7.35-7.45) Arterial Blood pCO2 at Patient Temp 84 mmHg (35-46) Arterial Blood pO2 at Patient Temp 97 mmHg (65-108) Arterial Blood HCO3 40 mmol/L (21-28) Arterial Blood Base Excess 10 mmol/L (-3-3) FiO2 40 White Blood Count 3.4 x10^3/uL (4.0-11.0) Red Blood Count 3.39 x10^6/uL (3.50-5.40) Hemoglobin 11.0 g/dL (12.0-15.5) Hematocrit 32.4 % (36.0-47.0) Mean Corpuscular Volume 96 fL (79-100) Mean Corpuscular Hemoglobin 33 pg (25-35) Mean Corpuscular Hemoglobin Concent 34 g/dL (31-37) Red Cell Distribution Width 13.2 % (11.5-14.5) Platelet Count 123 x10^3/uL (140-400) Neutrophils (%) (Auto) 76 % (31-73) Lymphocytes (%) (Auto) 20 % (24-48) Monocytes (%) (Auto) 4 % (0-9) Eosinophils (%) (Auto) 0 % (0-3) Basophils (%) (Auto) 0 % (0-3) Neutrophils # (Auto) 2.6 x10^3uL (1.8-7.7) Lymphocytes # (Auto) 0.7 x10^3/uL (1.0-4.8) Monocytes # (Auto) 0.1 x10^3/uL (0.0-1.1) Eosinophils # (Auto) 0.0 x10^3/uL (0.0-0.7) Basophils # (Auto) 0.0 x10^3/uL (0.0-0.2) Sodium Level 142 mmol/L (136-145) Potassium Level 3.6 mmol/L (3.5-5.1) Chloride Level 98 mmol/L (98-107) Carbon Dioxide Level 40 mmol/L (21-32) Anion Gap 4 (6-14) Blood Urea Nitrogen 28 mg/dL (7-20) Creatinine 0.8 mg/dL (0.6-1.0) Estimated GFR (Cockcroft-Gault) 72.2 Glucose Level 141 mg/dL (70-99) Calcium Level 9.8 mg/dL (8.5-10.1) Laboratory Tests Test 09/18/18 13:30 09/19/18 06:00 O2 Saturation 97 % (92-99) Arterial Blood pH 7.29 (7.35-7.45) Arterial Blood pCO2 at Patient Temp 84 mmHg (35-46) Arterial Blood pO2 at Patient Temp 97 mmHg (65-108) Arterial Blood HCO3 40 mmol/L (21-28) Arterial Blood Base Excess 10 mmol/L (-3-3) FiO2 40 White Blood Count 3.4 x10^3/uL (4.0-11.0) Red Blood Count 3.39 x10^6/uL (3.50-5.40) Hemoglobin 11.0 g/dL (12.0-15.5) Hematocrit 32.4 % (36.0-47.0) Mean Corpuscular Volume 96 fL (79-100) Mean Corpuscular Hemoglobin 33 pg (25-35) Mean Corpuscular Hemoglobin Concent 34 g/dL (31-37) Red Cell Distribution Width 13.2 % (11.5-14.5) Platelet Count 123 x10^3/uL (140-400) Neutrophils (%) (Auto) 76 % (31-73) Lymphocytes (%) (Auto) 20 % (24-48) Monocytes (%) (Auto) 4 % (0-9) Eosinophils (%) (Auto) 0 % (0-3) Basophils (%) (Auto) 0 % (0-3) Neutrophils # (Auto) 2.6 x10^3uL (1.8-7.7) Lymphocytes # (Auto) 0.7 x10^3/uL (1.0-4.8) Monocytes # (Auto) 0.1 x10^3/uL (0.0-1.1) Eosinophils # (Auto) 0.0 x10^3/uL (0.0-0.7) Basophils # (Auto) 0.0 x10^3/uL (0.0-0.2) Sodium Level 142 mmol/L (136-145) Potassium Level 3.6 mmol/L (3.5-5.1) Chloride Level 98 mmol/L (98-107) Carbon Dioxide Level 40 mmol/L (21-32) Anion Gap 4 (6-14) Blood Urea Nitrogen 28 mg/dL (7-20) Creatinine 0.8 mg/dL (0.6-1.0) Estimated GFR (Cockcroft-Gault) 72.2 Glucose Level 141 mg/dL (70-99) Calcium Level 9.8 mg/dL (8.5-10.1) Microbiology 09/18/18 Blood Culture - Preliminary, Resulted NO GROWTH AFTER 1 DAY Medications Current Medications Methylprednisolone Sodium Succinate (SOLU-Medrol 125MG VIAL) 125 mg 1X ONCE IV Last administered on 09/18/18at 06:44; Start 09/18/18 at 07:00; Stop at 07:01; Status DC Albuterol/ Ipratropium (Duoneb) 3 ml 1X ONCE NEB Last administered on at 07:29; Start 09/18/18 at 07:00; Stop 09/18/18 at 07:01; Status DC Ondansetron HCl (Zofran) 4 mg PRN Q8HRS PRN IV NAUSEA/VOMITING; Start at 08:00; Stop 09/19/18 at 07:59; Status DC Morphine Sulfate (Morphine Sulfate) 2 mg PRN Q2HR PRN IV PAIN; Start 09/18/18 at 08:00; Stop 09/19/18 at 07:59; Status DC Methylprednisolone Sodium Succinate (SOLU-Medrol 125MG VIAL) 125 mg Q8HRS IV Last administered on 09/19/18at 07:00; Start 09/18/18 at 14:00 Albuterol Sulfate (Ventolin Neb Soln) 2.5 mg QID NEB Last administered on 09/19at 06:20; Start 09/18/18 at 17:00; Stop 09/19/18 at 09:38; Status DC Albuterol Sulfate (Ventolin Neb Soln) 2.5 mg PRN Q2HR PRN NEB DYSPNEA; Start 09/18/18 at 13:15 Enoxaparin Sodium (Lovenox 40mg Syringe) 40 mg Q24H SQ ; Start 09/19/18 at 14: 00 Alprazolam (Xanax) 0.25 mg TID PO ; Start 09/19/18 at 14:00 Furosemide (Lasix) 40 mg DAILY PO ; Start 09/19/18 at 10:00 Guaifenesin (Mucinex) 600 mg BID PO ; Start 09/19/18 at 10:30 Haloperidol (Haldol) 5 mg PRN Q6HRS PRN PO AGITATION; Start 09/19/18 at 09:30 Albuterol/ Ipratropium (Duoneb) 3 ml QID NEB ; Start 09/19/18 at 13:00 Non-Formulary Medication (Albuterol Sulfate (Ventolin Hfa Inhaler)) 2 puff QID INH ; Start 09/19/18 at 13:00; Status UNV Potassium Chloride (Klor-Con) 20 meq DAILYWBKFT PO ; Start 09/19/18 at 12:00 Albuterol/ Ipratropium (Duoneb) 3 ml RTQID NEB Last administered on 09/19/18at 11:07; Start 09/19/18 at 12:00 Active Scripts Active Prednisone 20 Mg Tablet 40 Mg PO DAILY Reported Levaquin (Levofloxacin) 500 Mg Tablet 500 Mg PO DAILY 7 Days Antibiotic Not given this admission Ventolin Hfa Inhaler (Albuterol Sulfate) 18 Gm Hfa.aer.ad 2 Puff INH QID Shortness of air Last dose given: 08/23/182001 Potassium Chloride 20 Meq Tablet.er 20 Meq PO DAILY Supplement Last dose given: 08/25/18834 Lasix (Furosemide) 40 Mg Tablet 40 Mg PO DAILY Diuretic Last dose given: 08/25/18835 Haloperidol 5 Mg Tablet 5 Mg PO Q6HRS PRN Anxiety Last dose given: 08/25/18203 Mucinex (Guaifenesin) 600 Mg Tablet.er 600 Mg PO BID Chest congestion Last dose given: 08/25/18835 Duoneb 0.5-3(2.5) Mg/3 Ml (Albuterol/Ipratropium) 3 Ml Ampul.neb 3 Ml NEB QID Shortness of breath Last dose given: 08/24/18 020 Alprazolam 0.25 Mg Tablet 0.25 Mg PO TID Anxiety Last dose given: 08/25/18834 Vitals/I & O Vital Sign - Last 24 Hours 09/18/18 09/18/18 09/18/18 09/18/18 12:00 12:00 13:00 13:30 Temp 98.5 98.5 Pulse 72 89 Resp 31 34 B/P (MAP) 139/65 (89) 115/62 (79) Pulse Ox 95 95 95 O2 Delivery BiPAP/CPAP Bi-pap BiPAP/CPAP 09/18/18 09/18/18 09/18/18 09/18/18 16:00 16:12 19:59 20:00 Temp 98.5 98.7 98.5 98.7 Pulse 86 93 Resp 22 21 B/P (MAP) 140/60 (86) 156/95 (115) Pulse Ox 90 97 93 O2 Delivery Venturi Mask Nasal Cannula O2 Flow Rate 4.0 4.0 09/18/18 09/18/18 09/19/18 09/19/18 20:46 23:59 00:00 03:59 Temp 97.7 97.8 97.7 97.8 Pulse 71 73 Resp 22 22 B/P (MAP) 135/88 (104) 134/61 (85) Pulse Ox 99 94 95 O2 Delivery BiPAP/CPAP BiPAP/CPAP O2 Flow Rate 4.0 09/19/18 09/19/18 09/19/18 09/19/18 04:00 06:20 07:00 08:04 Temp 98.3 98.3 98.3 98.3 Pulse 74 74 Resp 16 16 B/P (MAP) 145/67 (93) 145/67 (93) Pulse Ox 92 99 99 O2 Delivery Nasal Cannula BiPAP/CPAP Room Air O2 Flow Rate 4.0 4.0 09/19/18 11:09 Pulse Ox 95 O2 Delivery Nasal Cannula O2 Flow Rate 4.0 Intake and Output 09/18/18 09/18/18 09/19/18 15:00 23:00 07:00 Intake Total 100 ml 100 ml Output Total 0 ml 151 ml Balance 0 ml -51 ml 100 ml RYAN METZGER MD Sep 19, 2018 11:16
[2018-09-19] MEDS ORDERED: POTASSIUM CHLORIDE 20 MEQ TABLET.ER. PO SCH (12:00)
--- NOTE | 2018-09-19 12:37 | DISCH ---
DISCHARGE WITH HOME HEALTH DISCHARGE INFORMATION: Discharge Date: Sep 19, 2018 Final Diagnosis: Problems Medical Problems: (1) Hypercapnic respiratory failure Status: Acute (2) Metabolic encephalopathy Status: Acute Condition on Discharge: Stable CODE STATUS: Code Status: DNR/DNI HOME HEALTH: Face to Face: I certify this patient is under my care and that I, or a nurse practitioner or physician's audiology assistant working with me, had a face to face encounter that meets the physician face to face encounter requirements with this patient on []. Medical Complications: COPD Physical Therapy For: Other: (hopsice) Occupational Therapy For: Other: (hospice) Home Health Aide For: Self-care Pt Meets Homebound Status: Poor coordination w/ amb., Extreme weakness w/ amb. , Fatigue w/ amb. POST DISCHARGE ORDERS: Activity Instructions for Disc: Activity as tolerated Weight Bearing Status after Di: As tolerated DIET AFTER DISCHARGE: Regular TREATMENT/EQUIPMENT ORDERS: Adaptive Equipment Issued: None Discharge Respiratory Equipmen: Oxygen, BiPAP CERTIFICATION STATEMENT: Certification Statement: Certification Statement: Based on the above finding, I certify that this patient is confined to the home and needs intermittent [facility] care, physical therapy and/or speech therapy, or continues to need occupational therapy.~ This patient is under my care, and I have initiated the establishment of the plan of care.~ This patient will be followed by myself or a community physician who will periodically review the plan of care. Home Meds Active Scripts Prednisone (PREDNISONE) 20 Mg Tablet, 40 MG PO DAILY, #20 TAB Prov:ORALIA HERNANDEZ MD 08/25/18 Reported Medications Levofloxacin (LEVAQUIN) 500 Mg Tablet, 500 MG PO DAILY for 7 Days, #7 TAB Antibiotic Not given this admission 08/25/18 Albuterol Sulfate (VENTOLIN HFA INHALER) 18 Gm Hfa.aer.ad, 2 PUFF INH QID for FOR ASTHMA, INHALER 0 Refills Shortness of air Last dose given: 08/23/18200108/24/18 Potassium Chloride (POTASSIUM CHLORIDE) 20 Meq Tablet.er, 20 MEQ PO DAILY, TAB.SR Supplement Last dose given: 08/25/1883408/24/18 Furosemide (LASIX) 40 Mg Tablet, 40 MG PO DAILY, TAB Diuretic Last dose given: 08/25/1883508/24/18 Haloperidol (HALOPERIDOL) 5 Mg Tablet, 5 MG PO Q6HRS PRN for AGITATION, TAB Anxiety Last dose given: 08/25/1820308/24/18 Guaifenesin (MUCINEX) 600 Mg Tablet.er, 600 MG PO BID, TAB.SR Chest congestion Last dose given: 08/25/1883508/24/18 Ipratropium/Albuterol Sulfate (DUONEB 0.5-3(2.5) MG/3 ML) 3 Ml Ampul.neb, 3 ML NEB QID, EACH Shortness of breath Last dose given: 08/24/1820408/24/18 Alprazolam (ALPRAZOLAM) 0.25 Mg Tablet, 0.25 MG PO TID, TAB 0 Refills Anxiety Last dose given: 08/25/1883408/24/18 RYAN METZEGR MD Sep 19, 2018 12:37
--- NOTE | 2018-09-19 12:40 | PDOC3 ---
Discharge Summary Visit Information Date of Admission: Sep 18, 2018 Date of Discharge: Sep 19, 2018 Admitting Diagnosis Comment: 1. Acute on chronic hypoxemic hypercapnic respiratory failure. 2. 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 3. Obstructive sleep apnea, hypoventilation syndrome. 4. Morbid obesity. 5. Chronic heart failure. Final Diagnosis Problems Medical Problems: (1) Hypercapnic respiratory failure Status: Acute (2) Metabolic encephalopathy Status: Acute Brief Hospital Course Allergies Allergies Coded Allergies Type Severity Reaction Last Updated Verified lorazepam Adverse Reaction Intermediate 08/23/18 Yes Vital Signs Vital Signs Date Time Temp Pulse Resp B/P (MAP) Pulse Ox O2 Delivery O2 Flow Rate FiO2 09/19/18 11:09 95 Nasal Cannula 4.0 09/19/18 11:00 98.7 79 18 142/66 (91) 98.7 Lab Results Laboratory Tests Test 09/18/18 06:14 09/18/18 06:20 09/18/18 06:23 09/18/18 07:00 White Blood Count 5.2 x10^3/uL (4.0-11.0) Red Blood Count 3.66 x10^6/uL (3.50-5.40) Hemoglobin 11.8 g/dL (12.0-15.5) Hematocrit 35.7 % (36.0-47.0) Mean Corpuscular Volume 98 fL (79-100) Mean Corpuscular Hemoglobin 32 pg (25-35) Mean Corpuscular Hemoglobin Concent 33 g/dL (31-37) Red Cell Distribution Width 13.1 % (11.5-14.5) Platelet Count 116 x10^3/uL (140-400) Neutrophils (%) (Auto) 83 % (31-73) Lymphocytes (%) (Auto) 11 % (24-48) Monocytes (%) (Auto) 5 % (0-9) Eosinophils (%) (Auto) 0 % (0-3) Basophils (%) (Auto) 0 % (0-3) Neutrophils # (Auto) 4.3 x10^3uL (1.8-7.7) Lymphocytes # (Auto) 0.6 x10^3/uL (1.0-4.8) Monocytes # (Auto) 0.3 x10^3/uL (0.0-1.1) Eosinophils # (Auto) 0.0 x10^3/uL (0.0-0.7) Basophils # (Auto) 0.0 x10^3/uL (0.0-0.2) Sodium Level 143 mmol/L (136-145) Potassium Level 4.5 mmol/L (3.5-5.1) Chloride Level 100 mmol/L (98-107) Carbon Dioxide Level 45 mmol/L (21-32) Anion Gap -2 (6-14) Blood Urea Nitrogen 17 mg/dL (7-20) Creatinine 0.6 mg/dL (0.6-1.0) Estimated GFR (Cockcroft-Gault) 100.6 Glucose Level 138 mg/dL (70-99) Calcium Level 9.3 mg/dL (8.5-10.1) Total Bilirubin 0.4 mg/dL (0.2-1.0) Direct Bilirubin 0.1 mg/dL (0.0-0.2) Aspartate Amino Transf (AST/SGOT) 18 U/L (15-37) Alanine Aminotransferase (ALT/SGPT) 26 U/L (14-59) Alkaline Phosphatase 49 U/L (46-116) Troponin I Quantitative < 0.017 ng/mL (0.000-0.055) Total Protein 7.3 g/dL (6.4-8.2) Albumin 3.6 g/dL (3.4-5.0) Lipase 180 U/L (73-393) Glucose (Fingerstick) 124 mg/dL (70-99) O2 Saturation 90 % (92-99) Arterial Blood pH 7.15 (7.35-7.45) Arterial Blood pCO2 at Patient Temp 128 mmHg (35-46) Arterial Blood pO2 at Patient Temp 60 mmHg (65-108) Arterial Blood HCO3 44 mmol/L (21-28) Arterial Blood Base Excess 10 mmol/L (-3-3) FiO2 25 Nasal Screen MRSA (PCR) Negative (Negative) Test 09/18/18 07:17 09/18/18 13:30 09/19/18 06:00 Urine Collection Type U cath Urine Color Yellow Urine Clarity Cloudy Urine pH 6.0 Urine Specific [place] 1.020 Urine Protein Negative mg/dL (NEG-TRACE) Urine Glucose (UA) Negative mg/dL (NEG) Urine Ketones (Stick) Negative mg/dL (NEG) Urine Blood Negative (NEG) Urine Nitrite Negative (NEG) Urine Bilirubin Negative (NEG) Urine Urobilinogen Dipstick 0.2 mg/dL (0.2 mg/dL) Urine Leukocyte Esterase Negative (NEG) Urine RBC 0 /HPF (0-2) Urine WBC 0 /HPF (0-4) Urine Bacteria 0 /HPF (0-FEW) Urine Hyaline Casts Moderate /HPF Urine Mucus Marked /LPF O2 Saturation 97 % (92-99) Arterial Blood pH 7.29 (7.35-7.45) Arterial Blood pCO2 at Patient Temp 84 mmHg (35-46) Arterial Blood pO2 at Patient Temp 97 mmHg (65-108) Arterial Blood HCO3 40 mmol/L (21-28) Arterial Blood Base Excess 10 mmol/L (-3-3) FiO2 40 White Blood Count 3.4 x10^3/uL (4.0-11.0) Red Blood Count 3.39 x10^6/uL (3.50-5.40) Hemoglobin 11.0 g/dL (12.0-15.5) Hematocrit 32.4 % (36.0-47.0) Mean Corpuscular Volume 96 fL (79-100) Mean Corpuscular Hemoglobin 33 pg (25-35) Mean Corpuscular Hemoglobin Concent 34 g/dL (31-37) Red Cell Distribution Width 13.2 % (11.5-14.5) Platelet Count 123 x10^3/uL (140-400) Neutrophils (%) (Auto) 76 % (31-73) Lymphocytes (%) (Auto) 20 % (24-48) Monocytes (%) (Auto) 4 % (0-9) Eosinophils (%) (Auto) 0 % (0-3) Basophils (%) (Auto) 0 % (0-3) Neutrophils # (Auto) 2.6 x10^3uL (1.8-7.7) Lymphocytes # (Auto) 0.7 x10^3/uL (1.0-4.8) Monocytes # (Auto) 0.1 x10^3/uL (0.0-1.1) Eosinophils # (Auto) 0.0 x10^3/uL (0.0-0.7) Basophils # (Auto) 0.0 x10^3/uL (0.0-0.2) Sodium Level 142 mmol/L (136-145) Potassium Level 3.6 mmol/L (3.5-5.1) Chloride Level 98 mmol/L (98-107) Carbon Dioxide Level 40 mmol/L (21-32) Anion Gap 4 (6-14) Blood Urea Nitrogen 28 mg/dL (7-20) Creatinine 0.8 mg/dL (0.6-1.0) Estimated GFR (Cockcroft-Gault) 72.2 Glucose Level 141 mg/dL (70-99) Calcium Level 9.8 mg/dL (8.5-10.1) Laboratory Tests Test 09/18/18 13:30 09/19/18 06:00 O2 Saturation 97 % (92-99) Arterial Blood pH 7.29 (7.35-7.45) Arterial Blood pCO2 at Patient Temp 84 mmHg (35-46) Arterial Blood pO2 at Patient Temp 97 mmHg (65-108) Arterial Blood HCO3 40 mmol/L (21-28) Arterial Blood Base Excess 10 mmol/L (-3-3) FiO2 40 White Blood Count 3.4 x10^3/uL (4.0-11.0) Red Blood Count 3.39 x10^6/uL (3.50-5.40) Hemoglobin 11.0 g/dL (12.0-15.5) Hematocrit 32.4 % (36.0-47.0) Mean Corpuscular Volume 96 fL (79-100) Mean Corpuscular Hemoglobin 33 pg (25-35) Mean Corpuscular Hemoglobin Concent 34 g/dL (31-37) Red Cell Distribution Width 13.2 % (11.5-14.5) Platelet Count 123 x10^3/uL (140-400) Neutrophils (%) (Auto) 76 % (31-73) Lymphocytes (%) (Auto) 20 % (24-48) Monocytes (%) (Auto) 4 % (0-9) Eosinophils (%) (Auto) 0 % (0-3) Basophils (%) (Auto) 0 % (0-3) Neutrophils # (Auto) 2.6 x10^3uL (1.8-7.7) Lymphocytes # (Auto) 0.7 x10^3/uL (1.0-4.8) Monocytes # (Auto) 0.1 x10^3/uL (0.0-1.1) Eosinophils # (Auto) 0.0 x10^3/uL (0.0-0.7) Basophils # (Auto) 0.0 x10^3/uL (0.0-0.2) Sodium Level 142 mmol/L (136-145) Potassium Level 3.6 mmol/L (3.5-5.1) Chloride Level 98 mmol/L (98-107) Carbon Dioxide Level 40 mmol/L (21-32) Anion Gap 4 (6-14) Blood Urea Nitrogen 28 mg/dL (7-20) Creatinine 0.8 mg/dL (0.6-1.0) Estimated GFR (Cockcroft-Gault) 72.2 Glucose Level 141 mg/dL (70-99) Calcium Level 9.8 mg/dL (8.5-10.1) Brief Hospital Course Ms. Cook is a 62 old female home O2 dependent, has chronic heart failure and chronic COPD, previously on hospice prior to coming here. Admitted because of S OA but no pneumonia. Comanage with pulmonary. Just steroids we are giving, no antibiotics. Better in 24 hours. To go back home with home hospice No Rx needed maybe a Medrol Dosepak if she is not already on prednisone at home , but she claims she is. Consults: pulmo Proc; none DispO; home with hospice 2 notes today Discharge Information Condition at Discharge: Stable Disposition/Orders: D/C to Home w/ Hospice Scheduled Albuterol Sulfate (Ventolin Hfa Inhaler) 18 Gm Hfa.aer.ad, 2 PUFF INH QID for FOR ASTHMA, Ref 0 (Reported) Shortness of air Last dose given: 08/23/182001 Entered as Reported by: VAMSI TA on 08/24/18 1029 Last Action: Converted on 09/19/18925 by RYAN METZGER Alprazolam (Alprazolam) 0.25 Mg Tablet, 0.25 MG PO TID, Ref 0 (Reported) Anxiety Last dose given: 08/25/18834 Entered as Reported by: VAMSI TA on 08/24/18 1029 Last Action: Continued on 09/19/18925 by RYAN METZGER Furosemide (Lasix) 40 Mg Tablet, 40 MG PO DAILY, (Reported) Diuretic Last dose given: 08/25/18835 Entered as Reported by: VAMSI TA on 08/24/18 102 Last Action: Continued on 09/19/18925 by RYAN METZGER Guaifenesin (Mucinex) 600 Mg Tablet.er, 600 MG PO BID, (Reported) Chest congestion Last dose given: 08/25/18835 Entered as Reported by: VAMSI TA on 08/24/18 1029 Last Action: Continued on 09/19/18925 by RYAN METZGER Ipratropium/Albuterol Sulfate (Duoneb 0.5-3(2.5) Mg/3 Ml) 3 Ml Ampul.neb, 3 ML NEB QID, (Reported) Shortness of breath Last dose given: 08/24/18 0205 Entered as Reported by: VAMSI TA on 08/24/18 102 Last Action: Continued on 09/19/18925 by RYAN METZGER Levofloxacin (Levaquin) 500 Mg Tablet, 500 MG PO DAILY for 7 Days, #7 (Reported) Antibiotic Not given this admission Entered as Reported by: HANH SENA on 08/25/18 1103 Last Action: HELD on 09/19/18925 by RYAN METZGER Potassium Chloride (Potassium Chloride) 20 Meq Tablet.er, 20 MEQ PO DAILY, ( Reported) Supplement Last dose given: 08/25/18834 Entered as Reported by: VAMSI TA on 08/24/18 1029 Last Action: Converted on 09/19/18925 by RYAN METZGER Prednisone (Prednisone) 20 Mg Tablet, 40 MG PO DAILY, #20 Prescribed by: ORALIA HERNANDEZ MD on 08/25/18 1052 Last Action: HELD on 09/19/18925 by RYAN METZGER Scheduled PRN Haloperidol (Haloperidol) 5 Mg Tablet, 5 MG PO Q6HRS PRN for AGITATION, ( Reported) Anxiety Last dose given: 08/25/18 0204 Entered as Reported by: VAMSI TA on 08/24/18 1029 Last Action: Continued on 09/19/18925 by JULIA WALKERE Y MD Sep 19, 2018 12:40
[2018-09-19] MEDS ORDERED: NON FORMULARY ITEM (Albuterol Sulfate (Ventolin Hfa Inhaler) 2 PUFF) INH SCH (13:00)
[2018-09-19] MEDS ORDERED: ENOXAPARIN 40 MG/0.4 ML SYRINGE. SQ SCH (14:00)
[2018-09-19] MEDS ORDERED: ALPRAZolam 0.25 MG TABLET PO SCH (14:00)
[2018-09-19] MEDS ORDERED: methylPREDNISolone SOD SUCC PF 125 MG/2 ML VIAL. IV SCH (14:00)
[2018-09-19 15:00] VITALS: BP 95/65
== END 2018-09-19 17:45 | disposition hospice, home (50) | DRG 189 ==
LOC: ER 05:59 → 1 WEST ICU 07:52 → 5 SOUTH 18:50
PROVIDERS: ADMIT Internal Medicine; ATTEND Internal Medicine
PROC: 5A09357 Assistance with Respiratory Ventilation, Less than 24 Consecutive Hours, Continuous Positive Airway Pressure (ICD-10-PCS; principal; 2018-09-18)
PROC: 5A09357 Assistance with Respiratory Ventilation, Less than 24 Consecutive Hours, Continuous Positive Airway Pressure (ICD-10-PCS; 2018-09-19)
DX: J96.21 Acute and chronic respiratory failure with hypoxia (principal); G93.41 Metabolic encephalopathy; J44.1 Chronic obstructive pulmonary disease with (acute) exacerbation; E87.2 Acidosis; E66.2 Morbid (severe) obesity with alveolar hypoventilation; Z68.1 Body mass index [BMI] 19.9 or less, adult; J96.22 Acute and chronic respiratory failure with hypercapnia; Z66 Do not resuscitate; Z96.649 Presence of unspecified artificial hip joint; I50.9 Heart failure, unspecified; F41.9 Anxiety disorder, unspecified; Z82.49 Family history of ischemic heart disease and other diseases of the circulatory system; Z87.891 Personal history of nicotine dependence; Z98.51 Tubal ligation status; Z99.81 Dependence on supplemental oxygen
CPT/HCPCS: 36415; 36600; 70450; 71045; 80048; 80076; 81001; 82805; 82962; 83690; 84484; 85025; 87040; 87641; 93005; 94640; 94660; 94760; 96374; J1650; J2930; J7613; J7620; P9612; 99285-25